=== PATIENT | female | born 1995 | race Two or more races ===

== ENCOUNTER 2022-10-11 19:47 | Emergency (ER) | payer OTHER, SELFPAY ==
--- NOTE | ~2022-10-11 | CT_ITS ---
EXAMINATION: CT ABDOMEN AND PELVIS WITHOUT CONTRAST CLINICAL INFORMATION: Abdominal pain with persistent vomiting COMPARISON: None available. TECHNIQUE: Multidetector volumetric imaging was performed from the superior aspect of the liver through the pubic symphysis. Sagittal and coronal reformatted images were obtained on the technologist's workstation. This CT examination was performed using dose optimization techniques as appropriate, variously including the following: *Automated exposure control *Adjustment of mA and/or kV according to patient size (this includes techniques or standardized protocols for targeted exams where dose is matched to indication/reason for exam; i.e. extremities or head) *Use of iterative reconstruction technique DLP: 799 mGy-cm FINDINGS: LUNG BASES: The visualized lung bases are unremarkable. LIVER, GALLBLADDER, AND BILIARY TREE: The liver is mildly enlarged at 18.3 cm. Shape and attenuation are normal. No focal hepatic lesion or biliary ductal dilatation is present. The gallbladder is unremarkable with no evidence of radiopaque gallstones, gallbladder wall thickening, or obvious pericholecystic inflammatory changes. PANCREAS: Unremarkable. SPLEEN: Unremarkable. ADRENAL GLANDS: Unremarkable. KIDNEYS AND URETERS: The kidneys are normal in size, shape, and attenuation. No hydronephrosis, hydroureter, or calculi seen. No perinephric stranding. BLADDER: Unremarkable. GASTROINTESTINAL TRACT: The small and large bowel are unremarkable aside from a few scattered colonic diverticula without diverticulitis. The appendix is unremarkable. ABDOMINAL WALL: No significant hernia is appreciated. LYMPH NODES: Normal. VASCULAR: Unremarkable. PELVIC VISCERA: The uterus and adnexa are unremarkable. At 2.4 cm benign cyst is present in the right ovary with a 1.2 cm cyst in the left ovary. No free fluid present in the pelvis. OSSEOUS STRUCTURES: Unremarkable. CT/CT abdomen pelvis wo IV con IMPRESSION: 1. A cause for the patient's abdominal pain and vomiting has not been found. 2. Incidental note made of mild hepatomegaly and bilateral benign ovarian cysts which need no additional follow-up. Fleischner guidelines were followed.
[2022-10-11 19:55] VITALS: BP 117/67; PULSE 63; RESP 16; TEMP 37.3; O2SAT 96; BMI 38.3
--- NOTE | 2022-10-11 19:57 | ED_ITS ---
HPI - General Adult General Chief complaint: Abdominal Pain Stated complaint: vomiting,body aches Time Seen by Provider: 10/11/22 20:44 Source: patient Mode of arrival: ambulatory Limitations: no limitations History of Present Illness HPI narrative: 27-year-old female came in for evaluation of abdominal pain, nausea, vomiting, nonbloody watery diarrhea for the past 7 days, patient was seen and evaluated in 2 different ER last week for similar symptoms with no relief of patient's symptoms, patient stated started as a food poisoning. Patient is concerned because the persistence of her symptoms. Decline any history of intra-abdominal surgery. Related Data Allergies Allergy/AdvReac Type Severity Reaction Status Date / Time No Known Allergies Allergy Verified 10/11/22 19:58 Review of Systems Review of Systems: All other systems are reviewed and are negative Constitutional: Reports as per HPI and Reports no additional constitutional complaints Eyes: Reports as per HPI and Reports no additional eye complaints Reports system reviewed and no additional complaints, except as documented Cardiovascular: Reports as per HPI and Reports no additional cardiovascular complaints Respiratory: Reports as per HPI and Reports no additional respiratory complaints Gastrointestinal: Reports as per HPI and Reports no additional gastrointestinal complaints Genitourinary: Reports no additional female genitourinary complaints Musculoskeletal: Reports no additional musculoskeletal complaints Skin/Breast: Reports system reviewed and no additional complaints, except as docu Psychiatric: Reports no additional psychiatric complaints Endocrine: Reports no additional endocrine complaints Hematologic/Lymphatic: Reports no additional hematologic/lymphatic complaints Allergic/Immunologic: Reports no additional allergic/immunologic complaints Reports system reviewed and no additional complaints, except as documented and Reports Abnormal speech present PENDING SALE TO [facility] Social History Social History Advance Directives: No Advance Directives Information Provided: No Physical Exam ED Vital Signs: Vital Signs - 24 hr 10/11/22 19:55 10/12/22 00:00 Temperature 99.1 F 98.1 F Pulse Rate 63 72 Respiratory Rate 16 16 Blood Pressure 117/67 120/67 Pulse Oximetry 96 98 Oxygen Delivery Method Room Air Room Air BMI result Body Mass Index 38.3 Vital signs have been reviewed as appeared to be correct. Blood pressure normal. Heart rate normal. Respiration rate normal. Temperature normal. Oxygen saturation normal. Appearance: Alert. Oriented X3. No acute distress. Head: Normal external exam. Normocephalic. Atraumatic. No Ibarra signs noted. No raccoon eyes noted Eyes: PERRLA. EOMI. Conjunctiva and sclera normal. Eyelids normal. ENT: TM's Normal. Pharynx normal. Uvula midline. Moist mucous membranes. No trismus noted. No drooling noted. No muffled voice noted. Neck: Normal inspection. Neck supple. FROM. No adenopathy. Thyroid Normal. No meningeal signs. No neck mass noted. CVS: Normal heart rate and rhythm. Heart sound normal. No murmurs noted. Pulses normal throughout. Respiratory: No respiratory distress. Painless inspiration. Breath sounds normal. No wheezes/rales/rhonchi noted. Chest nontender. No accessory muscle usage noted or decreased air movement noted. Abdomen: Soft, mild diffuse tenderness with no rebound tenderness or guarding. Bowel sounds normal in all 4 quadrants. No distention noted. No organomegaly noted. No visible injury noted. Back: No CVA tenderness. Full range of motion noted. Skin: Skin warm and dry. Normal skin color. Normal skin turgor. No rashes/lesions/lacerations noted. Extremities: No lower extremity edema. Extremities exhibit normal range of motion. Extremities nontender. Neuro: Oriented X 3. Cranial nerve exam: II-XII are grossly intact No motor deficit. No sensory deficit. Reflexes normal. Course Course Course Narrative: RME performed by Shikha Swift PA-C. Patient is a 27 year old assigned female at presenting to the emergency department with nausea, vomiting, and kidney pain. Patient states that this has been going on for 7 days and she has been seen at [facility] and [facility] BOTH for these symptoms. Labs, swabs ordered. Patient placed back in the waiting room pending room availability and results. Reevaluation(s) Reevaluation #1: 27-year-old female came in for few days of nausea, vomiting, diarrhea, and abdominal pain, patient had multiple ED visits this week for similar presentatio n, labs revealing mild hypokalemia, no obvious UTI. Patient is feeling better after IV hydration, now able to tolerate p.o. intake without vomiting. Time: 22:38 Medications Administered Discontinued Medications Generic Name Dose Route Start Last Admin Trade Name Freq PRN Reason Stop Dose Admin Al Hydroxide/Mg Hydroxide 30 ml 10/11/22 21:20 10/11/22 21:45 Magnesium Hydrox/Alum Hydrox 30 Ml Oral.Susp PO 10/11/22 21:21 30 ml ONCE ONE Administration Famotidine 20 mg 10/11/22 21:20 10/11/22 21:45 Famotidine/Pf 20 Mg/2 Ml Vial IVPUSH 10/11/22 21:21 20 mg ONCE ONE Administration Sodium Chloride 1,000 mls @ 999 mls/hr 10/11/22 21:20 10/11/22 23:49 Ns IV 10/11/22 22:20 Infused .Q1H1M ONE Infusion Sodium Chloride 1,000 mls @ 999 mls/hr 10/11/22 22:33 10/11/22 23:49 Ns IV 10/11/22 23:33 Infused .Q1H1M ONE Infusion Ketorolac Tromethamine 30 mg 10/11/22 22:33 10/11/22 22:44 Ketorolac Tromethamine 30 Mg/Ml Vial IVPUSH 10/11/22 22:34 30 mg ONCE ONE Administration Ondansetron HCl 4 mg 10/11/22 21:20 10/11/22 21:45 Ondansetron Hcl 4 Mg/2 Ml Vial IVPUSH 10/11/22 21:21 4 mg ONCE ONE Administration Potassium Chloride 40 meq 10/11/22 21:26 10/11/22 21:45 Potassium Chloride Packet 20 Meq Packet PO 10/11/22 21:27 40 meq ONCE ONE Administration Medical Decision Making Differential Diagnosis Differential Diagnoses: The differential diagnosis associated with the presentation includes (Appendicitis, colitis, diverticulitis, acute pyelonephritis, kidney stones, electrolytes abnormality, dehydration, severe ane amanda) Lab Data MDM Lab Attestation statement: I reviewed the patient's lab results. 10/11/22 20:17 10/11/22 20:17 Labs: Lab Results 10/11/22 10/11/22 10/11/22 Range/Units 20:17 20:17 20:17 WBC 10.4 (4.8-10.8) X10*3/uL RBC 4.75 (4.20-5.50) X10*6/uL Hgb 12.5 (12.0-16.0) g/dl Hct 37.2 (37.0-47.0) % MCV 78.3 L (80.0-98.0) fL MCH 26.3 L (27.0-33.0) pg MCHC 33.6 (31.0-35.0) g/dl RDW 13.2 (11.0-16.0) % Plt Count 369 (160-400) X10*3/uL MPV 8.9 L (9.4-12.3) fL Immature Gran % (Auto) 0.3 (0.0-0.4) % Neut % (Auto) 74.2 H (45-73) % Lymph % (Auto) 19.5 L (20-40) % Hendricks % (Auto) 5.7 (2-11) % Eos % (Auto) 0.1 (0-4) % Baso % (Auto) 0.2 (0-2) % Lymph # (Auto) 2.0 (1.2-4.9) X10*3/uL Hendricks # (Auto) 0.6 (0.1-1.2) X10*3/uL Eos # (Auto) 0.0 (0.0-0.4) X10*3/uL Baso # (Auto) 0.0 (0.0-0.2) X10*3/uL Abs Immat Gran (auto) 0.03 (0.00-0.03) X10*3/uL Absolute Neuts (auto) 7.8 (2.0-8.3) x10*3/uL Absolute Nucleated RBC 0.000 (0.0-0.012) X10*3/uL Nucleated RBC % (auto) 0.0 (0.0-0.2) /100WBC Sodium 142 (135-145) mmol/L Potassium 3.1 L (3.3-5.1) mmol/L Chloride 99 (96-108) mmol/L Carbon Dioxide 32 H (22-29) mmol/L Anion Gap 14 (12-20) BUN 6 L (9-16) mg/dL Creatinine 0.62 (0.5-1.4) mg/dL Estim Creat Clear Calc 163.4 Estimated GFR > 60 Random Glucose 101 (60-115) mg/dL Calcium 9.6 (8.4-10.2) mg/dL Magnesium 2.4 (1.6-2.6) mg/dL Total Bilirubin 1.0 (0.0-1.0) mg/dL AST 30 (5-31) U/L ALT 111 H (0-31) U/L Alkaline Phosphatase 68 (39-117) U/L Total Protein 7.4 (6.5-8.0) g/dL Albumin 4.3 (3.5-5.0) g/dL Lipase 31 (8-78) U/L Beta HCG, Quant < 2 mIU/mL Urine Color Urine Appearance Urine pH (5.0-9.0) Ur Specific [place] (1.005-1.025) Urine Protein (Neg-Trace) mg/dL Urine Glucose (UA) (Negative) mg/dL Urine Ketones (Negative) mg/dL Urine Blood (Negative) Urine Nitrite (Negative) Ur Leukocyte Esterase (Negative) Urine RBC (0-2) /HPF Urine WBC (0-5) /HPF Ur Squamous Epith Cells (0-2) /HPF Urine Bacteria (None Seen) Hyaline Casts (0-2) /LPF COVID-19 (SMITH) (Negative) COVID-19 Clin Com Influenza Type A (AKASH) Negative (Negative) Influenza Type B (AKASH) Negative (Negative) Influenza A & B Note See Note 10/11/22 10/11/22 Range/Units 20:17 20:17 WBC (4.8-10.8) X10*3/uL RBC (4.20-5.50) X10*6/uL Hgb (12.0-16.0) g/dl Hct (37.0-47.0) % MCV (80.0-98.0) fL MCH (27.0-33.0) pg MCHC (31.0-35.0) g/dl RDW (11.0-16.0) % Plt Count (160-400) X10*3/uL MPV (9.4-12.3) fL Immature Gran % (Auto) (0.0-0.4) % Neut % (Auto) (45-73) % Lymph % (Auto) (20-40) % Hendricks % (Auto) (2-11) % Eos % (Auto) (0-4) % Baso % (Auto) (0-2) % Lymph # (Auto) (1.2-4.9) X10*3/uL Hendricks # (Auto) (0.1-1.2) X10*3/uL Eos # (Auto) (0.0-0.4) X10*3/uL Baso # (Auto) (0.0-0.2) X10*3/uL Abs Immat Gran (auto) (0.00-0.03) X10*3/uL Absolute Neuts (auto) (2.0-8.3) x10*3/uL Absolute Nucleated RBC (0.0-0.012) X10*3/uL Nucleated RBC % (auto) (0.0-0.2) /100WBC Sodium (135-145) mmol/L Potassium (3.3-5.1) mmol/L Chloride (96-108) mmol/L Carbon Dioxide (22-29) mmol/L Anion Gap (12-20) BUN (9-16) mg/dL Creatinine (0.5-1.4) mg/dL Estim Creat Clear Calc Estimated GFR Random Glucose (60-115) mg/dL Calcium (8.4-10.2) mg/dL Magnesium (1.6-2.6) mg/dL Total Bilirubin (0.0-1.0) mg/dL AST (5-31) U/L ALT (0-31) U/L Alkaline Phosphatase (39-117) U/L Total Protein (6.5-8.0) g/dL Albumin (3.5-5.0) g/dL Lipase (8-78) U/L Beta HCG, Quant mIU/mL Urine Color Dark Yellow Urine Appearance Clear Urine pH 7.0 (5.0-9.0) Ur Specific [place] 1.025 (1.005-1.025) Urine Protein 30 (1+) H (Neg-Trace) mg/dL Urine Glucose (UA) Negative (Negative) mg/dL Urine Ketones 80 (Negative) mg/dL Urine Blood Negative (Negative) Urine Nitrite Negative (Negative) Ur Leukocyte Esterase Trace H (Negative) Urine RBC 3-5 H (0-2) /HPF Urine WBC 0-5 (0-5) /HPF Ur Squamous Epith Cells 3-5 (0-2) /HPF Urine Bacteria Trace (None Seen) Hyaline Casts 0-2 (0-2) /LPF COVID-19 (SMITH) Negative (Negative) COVID-19 Clin Com See Note Influenza Type A (AKASH) (Negative) Influenza Type B (AKASH) (Negative) Influenza A & B Note Independent Interpretation I performed an independent interpretation of an: CT Scan (Abdomen and pelvis: no acute intra-abdominal pathology) Discharge Plan Discharge Clinical Impression: Abdominal pain, Gastroenteritis Clinical Impression: (Ruled Out): Calculus of kidney Patient Disposition: Home, Self-Care Instructions: Gastroenteritis (ED), Acute Nausea and Vomiting (ED) Referrals: Physician,Unknown J [Primary Care Provider] -
[2022-10-11 20:23] LABS: MANUAL DIFF FLAG NO
[2022-10-11 20:27] LABS: Appearance Urine Clear; Basophils Percent Auto 0.2 % (0-2); Color Urine Dark Yellow; Eosinophils Percent Auto 0.1 % (0-4); Glucose Urine UA Negative (Negative); Hematocrit 37.2 % (37.0-47.0); Hemoglobin 12.5 g/dl (12.0-16.0); Imm Gran Abs Auto 0.03 X10*3/uL (0.00-0.03); Imm Gran Pct Auto 0.3 % (0.0-0.4); Leukocyte Esterase Urine Trace (Negative); Lymphocytes Percent Auto 19.5 % (20-40); Mean Corpuscular HGB Conc 33.6 g/dl (31.0-35.0); Mean Corpuscular Hemoglobin 26.3 pg (27.0-33.0); Mean Corpuscular Volume 78.3 fL (80.0-98.0); Mean Platelet Volume 8.9 fL (9.4-12.3); Monocytes Absolute Auto 0.6 X10*3/uL (0.1-1.2); Monocytes Percent Auto 5.7 % (2-11); Neutrophils Absolute Auto 7.8 x10*3/uL (2.0-8.3); Neutrophils Percent Auto 74.2 % (45-73); Nitrite Urine Negative (Negative); Platelet Count 369 X10*3/uL (160-400); Red Blood Count 4.75 X10*6/uL (4.20-5.50); Red Cell Distribution Width 13.2 % (11.0-16.0); Specific Gravity - Urine 1.025 (1.005-1.025); UMIC TRIGGER UACC YES; Urine Blood Negative (Negative); Urine Ketones 80 mg/dL (Negative); Urine Protein 30 (1+) mg/dL (Neg-Trace); White Blood Count 10.4 X10*3/uL (4.8-10.8)
[2022-10-11 20:32] LABS: Bacteria Urine Trace (None Seen); Hyaline Casts Urine 0-2 /LPF (0-2); WBC Urine 0-5 /HPF (0-5)
[2022-10-11 20:42] LABS: COVID-19 Test Negative (Negative); IDNOW Serial# 08D9AD1C; IDNOW Serial# BCCEAD1C; Influenza A Negative (Negative)
[2022-10-11 20:43] LABS: Influenza B2 Negative (Negative)
[2022-10-11 21:02] LABS: Alanine Aminotransferase 111 U/L (0-31); Albumin Level 4.3 g/dL (3.5-5.0); Alkaline Phosphatase 68 U/L (39-117); Anion Gap 14 (12-20); Aspartate Amino Transferase 30 U/L (5-31); Blood Urea Nitrogen 6 mg/dL (9-16); Calcium 9.6 mg/dL (8.4-10.2); Carbon Dioxide 32 mmol/L (22-29); Chloride 99 mmol/L (96-108); Creatinine Clr Calc Pharmacy 163.4; Estimated Glomerular Filt Rate > 60; Glucose Random 101 mg/dL (60-115); Lipase 31 U/L (8-78); Magnesium 2.4 mg/dL (1.6-2.6); Potassium 3.1 mmol/L (3.3-5.1); Sodium 142 mmol/L (135-145); Total Protein 7.4 g/dL (6.5-8.0)
[2022-10-11 21:16] LABS: HCG Quantitative < 2 mIU/mL
[2022-10-11] MEDS: ondansetron HCL 4 MG/2 ML VIAL IVPUSH (21:45)
[2022-10-11] MEDS: Famotidine/PF 20 MG/2 ML VIAL IVPUSH (21:45)
[2022-10-11] MEDS: 0.9 % Sodium Chloride 1,000 ML 999 ML IV ×2 (21:45→22:43)
[2022-10-11] MEDS: Potassium Chloride Packet 20 MEQ PACKET 40 MEQ PO (21:45)
[2022-10-11] MEDS: Magnesium Hydrox/Alum Hydrox 30 ML ORAL.SUSP PO (21:45)
--- NOTE | 2022-10-11 21:50 | PC.NURSE ---
20 g IV placed in the left forearm. IV is secured and patent with fluids running. Pt medicated per JUL.
[2022-10-11] MEDS: Ketorolac Tromethamine 30 MG/ML VIAL IVPUSH (22:44)
[2022-10-12] VITALS: BP 120/67; PULSE 72; RESP 16; TEMP 36.7; O2SAT 98
--- NOTE | 2022-10-12 00:41 | PC.NURSE ---
pt assessed at d/c, reported mild nausea and no pain
== END 2022-10-12 00:42 | disposition home or self-care (01) ==
PROVIDERS: Physician Assistant Medical; Emergency Provider Emergency Medicine
DX: R10.9 Unspecified abdominal pain (principal); K52.9 Noninfective gastroenteritis and colitis, unspecified; Z20.822 Contact with and (suspected) exposure to COVID-19; R11.2 Nausea with vomiting, unspecified
CPT/HCPCS: 74176; 80053; 81001; 83690; 83735; 84702; 85025; 87502; 87635; 96361; 96374; 96375; 99284; J1885; J2405

== ENCOUNTER 2022-12-26 07:30 | Emergency (ER) | payer OTHER, SELFPAY ==
--- NOTE | ~2022-12-26 | US_ITS ---
EXAMINATION: US ABDOMEN LIMITED CLINICAL INFORMATION: Epigastric and right upper quadrant pain. Nausea and vomiting.. COMPARISON: CT abdomen pelvis October 11, 2022 TECHNIQUE: Real-time imaging of the right upper quadrant abdominal viscera. FINDINGS: PANCREAS: Normal. LIVER: Normal. The liver is normal in size. The liver contour is normal. Parenchymal echogenicity is normal. No focal hepatic lesion. There is no intrahepatic biliary duct dilatation seen. GALLBLADDER: Normal. The gallbladder is physiologically distended without evidence of stones, sludge, polyps, wall thickening or pericholecystic fluid. Negative sonographic Dobbs's sign. COMMON BILE DUCT: Normal in caliber measuring 0.5 cm in diameter. RIGHT KIDNEY: Normal. No hydronephrosis. No renal calculi or focal parenchymal lesions. The kidney measures 11.7 cm in maximum dimension. FREE FLUID: None. US/US abdomen limited IMPRESSION: Unremarkable sonographic imaging of the right upper abdomen.
[2022-12-26 07:32] VITALS: BP 151/90; PULSE 70; RESP 16; TEMP 36.9; O2SAT 99; BMI 37.4
--- NOTE | 2022-12-26 07:42 | MHC.EDTECH ---
Pt unable to void at this time, urine cup given to patient. SG
[2022-12-26 07:48] LABS: MANUAL DIFF FLAG NO
[2022-12-26 07:49] LABS: Basophils Percent Auto 0.3 % (0-2); Eosinophils Percent Auto 0.2 % (0-4); Hematocrit 38.1 % (37.0-47.0); Imm Gran Abs Auto 0.03 X10*3/uL (0.00-0.03); Imm Gran Pct Auto 0.3 % (0.0-0.4); Lymphocytes Absolute Auto 1.9 X10*3/uL (1.2-4.9); Mean Corpuscular HGB Conc 34.1 g/dl (31.0-35.0); Mean Corpuscular Hemoglobin 27.2 pg (27.0-33.0); Mean Corpuscular Volume 79.7 fL (80.0-98.0); Mean Platelet Volume 8.8 fL (9.4-12.3); Monocytes Absolute Auto 0.5 X10*3/uL (0.1-1.2); Monocytes Percent Auto 4.3 % (2-11); Neutrophils Absolute Auto 8.6 x10*3/uL (2.0-8.3); Neutrophils Percent Auto 77.9 % (45-73); Platelet Count 386 X10*3/uL (160-400); Red Blood Count 4.78 X10*6/uL (4.20-5.50); Red Cell Distribution Width 13.2 % (11.0-16.0)
--- NOTE | 2022-12-26 08:06 | ED.GENADULT ---
HPI - General Adult General Chief complaint: Nausea/Vomiting/Diarrhea Stated complaint: Vomiting Time Seen by Provider: 12/26/22 08:05 Source: patient, RN notes reviewed and old records reviewed Mode of arrival: ambulatory Limitations: no limitations History of Present Illness HPI narrative: 27-year old female with no significant PMHx presenting to the ED today complaining of intermittent non-bloody vomiting, RUQ/epigastric abdominal pain and associated dark loose stools x1 week. States she's had PO intake secondary to N/V. Notes that her symptoms are temporarily relieved by taking showers. Admits to following with GI at [facility] for these symptoms, has not yet had an EGD. Admits to marijuana use however denies use since symptom onset. Denies fever, chills, flank pain, hematuria/ dysuria, constipation, recent travel or sick contacts. Denies chance of , LMP now. MD complaint: N/V, diarrhea Onset (ago): week(s) Related Data Previous Rx's Medication Instructions Recorded aluminum-mag hydroxide-simethicone 5 ml PO 5XD PRN dyspepsia #30 mL 12/26/22 200 mg-200 mg-20 mg/5 mL oral susp (Maalox Advanced) famotidine 20 mg tablet (Pepcid) 20 mg PO DAILY #14 tabs 12/26/22 ondansetron 4 mg disintegrating 4 mg PO Q8H PRN nausea and 12/26/22 tablet vomiting #10 tabs Allergies Allergy/AdvReac Type Severity Reaction Status Date / Time No Known Allergies Allergy Verified 12/26/22 07:32 Review of Systems Review of Systems: Constitutional: No Fever, No Chills ENT/Mouth: No Ear Pain, No Nasal Congestion Eyes: No Eye Pain, No Swelling Cardiovascular: No Chest Pain, No SOB, No Dyspnea on Exertion Respiratory: No Cough, No Sputum, No Wheezing, No Smoke Exposure, No Dyspnea Gastrointestinal: + Nausea, + Vomiting, + Diarrhea, No Constipation, + Abdominal pain, No Hematochezia, + Melena Genitourinary: No irregular bleeding, No Dysuria, No Urinary Frequency, No Hematuria, No Urinary Incontinence/retention, No Urgency, No Flank Pain Musculoskeletal: No joint pain, No Myalgias, No Joint Swelling Skin: No Skin Lesions, No rash Neuro: No Weakness, No Loss of Consciousness, No Dizziness, No Headache Yes all other systems are reviewed and are negative Constitutional: Constitutional: Reports as per [facility] Past Medical History Attestation statement: The following information was validated with the patient. Source: old records reviewed Social History Social History Advance Directives: No Advance Directives Information Provided: No Physical Exam ED Vital Signs: Vital Signs - 24 hr 12/26/22 07:32 12/26/22 10:15 Temperature 98.4 F 98.6 F Pulse Rate 70 67 Respiratory Rate 16 14 Blood Pressure 151/90 H 150/87 H Pulse Oximetry 99 100 Oxygen Delivery Method Room Air Room Air BMI result Body Mass Index 37.4 Const General: cooperative, healthy appearing, no acute distress, alert and awake Nutritional Appearance: obese Orientation/consciousness: patient oriented x3 Limitations: no limitations HENMT Head: Yes normal to inspection and Yes atraumatic Ears: hearing grossly normal bilaterally General nose exam: Normal external nose present Face and sinus: Yes normal facial exam Eyes General: appearance normal, both eyes and all related structures EOM: EOMs intact bilaterally Neck Neck: Yes normal visual inspection and Yes no meningeal signs Resp Effort & Inspection: normal respiratory effort and no respiratory distress Auscultation: clear to auscultation bilaterally Cardio Rate: regular rate Heart sounds: S1 normal heart sound present and S2 normal heart sound present GI Other: No obvious deformity, masses, or ecchymosis. No CVAT b/l. Inspection: Yes normal to inspection and Yes obesity Palpation (GI): Soft to palpation, Tenderness to palpation present (GI) in the epigastrum and in the RUQ; with no rebound tenderness, no guarding, not rigid, no hepatosplenomegaly, no pulsatile masses and No Rebound tenderness present Rectal Exam - Female: deferred General: Yes no CVA tenderness Back/Spine/Pelvis Back: no CVA tenderness Skin Rashes: no rashes Wounds: no wounds Neuro General: patient oriented x3, tone normal and no meningeal signs Gait exam (Neuro): Normal gait present Extrem General: Yes normal to inspection Course Course Course Narrative: -57--mild leukocytosis of 11.0. Potassium mildly low 3.1 > 60 mEq is repletion p.o. ordered -926--UDS positive for marijuana. UA with moderate amount of RBC/ blood likely secondary to patient's menstrual period, no infection. RUQ US showing physiologic dilation of GB without evidence of stones or sludge. US abdomen limited IMPRESSION: Unremarkable sonographic imaging of the right upper abdomen. -1044--UA with RBCs and trace leuk esterase, not infected -occult stool negative. Tox screen positive for THC -1140--patient tolerating p.o. in the ED. Recommended close GI follow-up Results discussed with patient including worrisome signs and symptoms and strict return precautions, and when to return to the emergency department. They verbalized understanding and feel safe for discharge at this time. ? Medications Administered Discontinued Medications Generic Name Dose Route Start Last Admin Trade Name Freq PRN Reason Stop Dose Admin Al Hydroxide/Mg Hydroxide 30 ml 12/26/22 08:24 12/26/22 08:55 Magnesium Hydrox/Alum Hydrox 30 Ml Oral.Susp PO 12/26/22 08:25 30 ml ONCE ONE Administration Famotidine 20 mg 12/26/22 08:24 12/26/22 08:55 Famotidine/Pf 20 Mg/2 Ml Vial IVPUSH 12/26/22 08:25 20 mg ONCE ONE Administration Sodium Chloride 1,000 mls @ 999 mls/hr 12/26/22 08:30 12/26/22 10:21 Ns IV 12/26/22 09:30 Infused .Q1H1M KEREN Infusion Sodium Chloride 1,000 mls @ 999 mls/hr 12/26/22 10:00 12/26/22 11:58 Ns IV 12/26/22 11:00 Infused .Q1H1M KEREN Infusion Lidocaine HCl 15 ml 12/26/22 10:44 12/26/22 11:43 Lidocaine Hcl Viscous 2 % 15 Ml Solution MUCOUS MEM 12/26/22 10:45 15 ml ONCE ONE Administration Potassium Chloride 60 meq 12/26/22 08:57 12/26/22 09:02 Potassium Chloride Er 20 Meq Tab.Er.Prt PO 12/26/22 08:58 60 meq ONCE ONE Administration Medical Decision Making Medical Decision Making MDM Narrative: 27-year old female with no significant PMHx presenting to the ED today complaining of intermittent non-bloody vomiting, abdominal pain and associated dark loose stools x1 week. Vital signs stable. Nontoxic appearing, NAD. Abdomen without deformity/ mass/ ecchymosis/ pulsation, TTP of epigastrium/RUQ without rebound or guarding. Concern for viral syndrome vs gastroenteritis vs gastritis vs PUD vs cholecystitis/lithiasis or pancreatitis vs cyclical vomiting vs electrolyte derangements. Lower suspicion for appendicitis, diverticulitis, UTI, renal stone/pyelo. Unlikely ACS, acute abdomen, ischemic bowel, SBO, IUP, ectopic Patient deferred rectal exam this time, will try to obtain stool for occult testing Plan: labs, UA, IVF, abdomen US, occult stool, GI cocktail, re-evaluate Please refer to course for remaining clinical decision making, interpretation of labs/imaging results, and discussions with consultants and/or family members. Differential Diagnosis Differential Diagnoses: The differential diagnosis associated with the presentation includes As above Admission/Observation Consideration of admission/observation: Escalation of care including admission/observation considered Lab Data MDM Lab Attestation statement: I reviewed the patient's lab results. 12/26/22 07:40 12/26/22 07:40 Labs: Lab Results 12/26/22 12/26/22 12/26/22 Range/Units 07:40 07:40 08:50 WBC 11.0 H (4.8-10.8) X10*3/uL RBC 4.78 (4.20-5.50) X10*6/uL Hgb 13.0 (12.0-16.0) g/dl Hct 38.1 (37.0-47.0) % MCV 79.7 L (80.0-98.0) fL MCH 27.2 (27.0-33.0) pg MCHC 34.1 (31.0-35.0) g/dl RDW 13.2 (11.0-16.0) % Plt Count 386 (160-400) X10*3/uL MPV 8.8 L (9.4-12.3) fL Immature Gran % (Auto) 0.3 (0.0-0.4) % Neut % (Auto) 77.9 H (45-73) % Lymph % (Auto) 17.0 L (20-40) % Shannon % (Auto) 4.3 (2-11) % Eos % (Auto) 0.2 (0-4) % Baso % (Auto) 0.3 (0-2) % Lymph # (Auto) 1.9 (1.2-4.9) X10*3/uL Shannon # (Auto) 0.5 (0.1-1.2) X10*3/uL Eos # (Auto) 0.0 (0.0-0.4) X10*3/uL Baso # (Auto) 0.0 (0.0-0.2) X10*3/uL Abs Immat Gran (auto) 0.03 (0.00-0.03) X10*3/uL Absolute Neuts (auto) 8.6 H (2.0-8.3) x10*3/uL Absolute Nucleated RBC 0.000 (0.0-0.012) X10*3/uL Nucleated RBC % (auto) 0.0 (0.0-0.2) /100WBC Sodium 140 (135-145) mmol/L Potassium 3.1 L (3.3-5.1) mmol/L Chloride 102 (96-108) mmol/L Carbon Dioxide 29 (22-29) mmol/L Anion Gap 12 (12-20) BUN 6 L (9-16) mg/dL Creatinine 0.71 (0.5-1.4) mg/dL Estim Creat Clear Calc 140.9 Estimated GFR > 60 Random Glucose 130 H (60-115) mg/dL Calcium 9.7 (8.4-10.2) mg/dL Magnesium 2.1 (1.6-2.6) mg/dL Total Bilirubin 0.8 (0.0-1.0) mg/dL AST 17 (5-31) U/L ALT 59 H (0-31) U/L Alkaline Phosphatase 68 (39-117) U/L Total Protein 7.8 (6.5-8.0) g/dL Albumin 4.3 (3.5-5.0) g/dL Lipase 14 (8-78) U/L Urine Color Urine Appearance Urine pH (5.0-9.0) Ur Specific Weir (1.005-1.025) Urine Protein (Neg-Trace) mg/dL Urine Glucose (UA) (Negative) mg/dL Urine Ketones (Negative) mg/dL Urine Blood (Negative) Urine Nitrite (Negative) Ur Leukocyte Esterase (Negative) Urine RBC (0-2) /HPF Urine WBC (0-5) /HPF Ur Squamous Epith Cells (0-2) /HPF Calcium Oxalate Crystal Urine Bacteria (None Seen) Hyaline Casts (0-2) /LPF Urine Test NEGATIVE (NEGATIVE) Stool Occult Blood (NEGATIVE) Urine Opiates Screen (Not Detect) Urine Fentanyl Screen (Not Detect) Ur Barbiturates Screen (Not Detect) Ur Phencyclidine Scrn (Not Detect) Ur Amphetamines Screen (Not Detect) U Benzodiazepines Scrn (Not Detect) Urine Cocaine Screen (Not Detect) U Marijuana (THC) Screen (Not Detect) 12/26/22 12/26/22 12/26/22 Range/Units 08:50 08:50 10:18 WBC (4.8-10.8) X10*3/uL RBC (4.20-5.50) X10*6/uL Hgb (12.0-16.0) g/dl Hct (37.0-47.0) % MCV (80.0-98.0) fL MCH (27.0-33.0) pg MCHC (31.0-35.0) g/dl RDW (11.0-16.0) % Plt Count (160-400) X10*3/uL MPV (9.4-12.3) fL Immature Gran % (Auto) (0.0-0.4) % Neut % (Auto) (45-73) % Lymph % (Auto) (20-40) % Shannon % (Auto) (2-11) % Eos % (Auto) (0-4) % Baso % (Auto) (0-2) % Lymph # (Auto) (1.2-4.9) X10*3/uL Shannon # (Auto) (0.1-1.2) X10*3/uL Eos # (Auto) (0.0-0.4) X10*3/uL Baso # (Auto) (0.0-0.2) X10*3/uL Abs Immat Gran (auto) (0.00-0.03) X10*3/uL Absolute Neuts (auto) (2.0-8.3) x10*3/uL Absolute Nucleated RBC (0.0-0.012) X10*3/uL Nucleated RBC % (auto) (0.0-0.2) /100WBC Sodium (135-145) mmol/L Potassium (3.3-5.1) mmol/L Chloride (96-108) mmol/L Carbon Dioxide (22-29) mmol/L Anion Gap (12-20) BUN (9-16) mg/dL Creatinine (0.5-1.4) mg/dL Estim Creat Clear Calc Estimated GFR Random Glucose (60-115) mg/dL Calcium (8.4-10.2) mg/dL Magnesium (1.6-2.6) mg/dL Total Bilirubin (0.0-1.0) mg/dL AST (5-31) U/L ALT (0-31) U/L Alkaline Phosphatase (39-117) U/L Total Protein (6.5-8.0) g/dL Albumin (3.5-5.0) g/dL Lipase (8-78) U/L Urine Color Dark Yellow Urine Appearance Cloudy Urine pH 6.5 (5.0-9.0) Ur Specific Weir 1.025 (1.005-1.025) Urine Protein 30 (1+) H (Neg-Trace) mg/dL Urine Glucose (UA) Negative (Negative) mg/dL Urine Ketones 40 (Negative) mg/dL Urine Blood Moderate (2+) H (Negative) Urine Nitrite Negative (Negative) Ur Leukocyte Esterase Trace H (Negative) Urine RBC 3-5 H (0-2) /HPF Urine WBC 0-5 (0-5) /HPF Ur Squamous Epith Cells 3-5 (0-2) /HPF Calcium Oxalate Crystal Present Urine Bacteria Trace (None Seen) Hyaline Casts 11-20 (0-2) /LPF Urine Test (NEGATIVE) Stool Occult Blood NEGATIVE (NEGATIVE) Urine Opiates Screen Not Detected (Not Detect) Urine Fentanyl Screen Not Detected (Not Detect) Ur Barbiturates Screen Not Detected (Not Detect) Ur Phencyclidine Scrn Not Detected (Not Detect) Ur Amphetamines Screen Not Detected (Not Detect) U Benzodiazepines Scrn Not Detected (Not Detect) Urine Cocaine Screen Not Detected (Not Detect) U Marijuana (THC) Screen POSITIVE H (Not Detect) Independent Interpretation I performed an independent interpretation of an: Ultrasound Interpretation: RUQ US showing physiologic dilation of GB without evidence of stones or sludge, agree with radiologist's interpretation. Radiology Impression Discussion of test interpretation with radiology: I have reviewed the radiologist's reading. Radiologist Impression: US abdomen limited IMPRESSION: Unremarkable sonographic imaging of the right upper abdomen. External Record Review External record reviewed: Inpatient record, Office record, Outpatient record, Prior outpatient labs, Prior outpatient radiology, Primary care record and Outside ED record Tests considered The following testing was considered but not selected: As above Prescription Management I considered prescription management with: Pain Medication Discharge Plan Discharge Clinical Impression: Abdominal pain, Nausea & vomiting Patient Disposition: Home, Self-Care Instructions: Acute Nausea and Vomiting (ED), Abdominal Pain (ED) Additional Instructions: Your blood work and ultrasound were reassuring You need to follow-up with gastroenterology Maalox and Pepcid will help with acid reduction Zofran as antinausea medication take as needed Avoid caffeine, spicy foods, sweets, chocolate as they may exacerbate her symptoms If symptoms persist or worsen return to the ED Prescriptions: New alum-mag hydroxide-simeth [Maalox Advanced] 200-200-20 mg/5 mL suspension 5 ml PO 5XD PRN (Reason: dyspepsia) Qty: 30 0RF Rx Instructions: administer between meals and at bedtime ondansetron 4 mg tablet,disintegrating 4 mg PO Q8H PRN (Reason: nausea and vomiting) Qty: 10 0RF famotidine [Pepcid] 20 mg tablet 20 mg PO DAILY Qty: 14 0RF Referrals: [facility] [Provider Group] - 5 days Discharge Date/Time: 12/26/22 11:50
[2022-12-26 08:10] LABS: Alanine Aminotransferase 59 U/L (0-31); Albumin Level 4.3 g/dL (3.5-5.0); Alkaline Phosphatase 68 U/L (39-117); Anion Gap 12 (12-20); Aspartate Amino Transferase 17 U/L (5-31); Bilirubin Total 0.8 mg/dL (0.0-1.0); Blood Urea Nitrogen 6 mg/dL (9-16); Calcium 9.7 mg/dL (8.4-10.2); Carbon Dioxide 29 mmol/L (22-29); Chloride 102 mmol/L (96-108); Creatinine Clr Calc Pharmacy 140.9; Estimated Glomerular Filt Rate > 60; Glucose Random 130 mg/dL (60-115); Lipase 14 U/L (8-78); Magnesium 2.1 mg/dL (1.6-2.6); Potassium 3.1 mmol/L (3.3-5.1); Sodium 140 mmol/L (135-145); Total Protein 7.8 g/dL (6.5-8.0)
[2022-12-26] MEDS: 0.9 % Sodium Chloride 1,000 ML 999 ML IV ×2 (08:55→10:19)
[2022-12-26] MEDS: Magnesium Hydrox/Alum Hydrox 30 ML ORAL.SUSP PO (08:55)
[2022-12-26] MEDS: Famotidine/PF 20 MG/2 ML VIAL IVPUSH (08:55)
[2022-12-26] MEDS: Potassium Chloride ER 20 MEQ TAB.ER.PRT 60 MEQ PO (09:02)
[2022-12-26 09:03] LABS: Appearance Urine Cloudy; Color Urine Dark Yellow; Glucose Urine UA Negative (Negative); Leukocyte Esterase Urine Trace (Negative); Nitrite Urine Negative (Negative); PH 6.5 (5.0-9.0); Specific Gravity - Urine 1.025 (1.005-1.025); UMIC TRIGGER UACC YES; UPreg QC Valid YES; Urine Blood Moderate (2+) (Negative); Urine Ketones 40 mg/dL (Negative); Urine Pregnancy NEGATIVE (NEGATIVE); Urine Protein 30 (1+) mg/dL (Neg-Trace)
[2022-12-26 09:16] LABS: Bacteria Urine Trace (None Seen); Calcium Oxalate Crystals Urine Present; WBC Urine 0-5 /HPF (0-5)
[2022-12-26 09:17] LABS: Amphetamine Screen Urine Not Detected (Not Detect); Barbiturates, Urine Not Detected (Not Detect); Benzodiazepines Screen Urine Not Detected (Not Detect); Cannabinoid Screen Urine POSITIVE (Not Detect); Cocaine Screen Urine Not Detected (Not Detect); Fentanyl, urine Not Detected (Not Detect); Opiate Screen Urine Not Detected (Not Detect); Phencyclidine Screen Urine Not Detected (Not Detect)
--- NOTE | 2022-12-26 10:01 | PC.NURSE ---
patient sleeping in stretcher, respirations equal and unlabored. patient IV fluids running, awaiting second bag.
[2022-12-26 10:15] VITALS: BP 150/87; PULSE 67; RESP 14; TEMP 37; O2SAT 100
--- NOTE | 2022-12-26 10:21 | PC.NURSE ---
eleonora given food and water/juice for PO challange
[2022-12-26 10:23] LABS: OBS Int Ctl Valid YES; OBS1 NEGATIVE (NEGATIVE)
[2022-12-26] MEDS: Lidocaine HCl Viscous 2 % 15 ML SOLUTION MUCOUS MEM (11:43)
== END 2022-12-26 11:50 | disposition home or self-care (01) ==
PROVIDERS: Physician Assistant; Emergency Provider Emergency Medicine Emergency Medical Services
DX: R10.11 Right upper quadrant pain (principal); R11.2 Nausea with vomiting, unspecified; F12.90 Cannabis use, unspecified, uncomplicated
CPT/HCPCS: 36415; 76705; 80053; 80307; 81001; 81003; 81025; 82272; 83690; 83735; 85025; 96361; 96374; 99284

== ENCOUNTER 2023-01-02 13:37 | Emergency (ER) | payer OTHER, SELFPAY ==
--- NOTE | ~2023-01-02 | XR_ITS ---
EXAMINATION: XR ABDOMEN KUB CLINICAL INFORMATION: Pain. COMPARISON: None available. TECHNIQUE: AP view of the abdomen. FINDINGS: The bowel gas pattern is normal with no evidence of ileus or obstruction. There is scattered retained stool. No unusual soft tissue calcifications are noted. The bones are unremarkable. XR/XR abdomen 1V IMPRESSION: Nonspecific bowel gas pattern. Scattered retained stool.
--- NOTE | ~2023-01-02 | CT_ITS ---
EXAMINATION: CT ABDOMEN AND PELVIS WITH CONTRAST CLINICAL INFORMATION: Abdominal pain. COMPARISON: 10/11/2022. TECHNIQUE: Multidetector volumetric images were obtained from the superior aspect of the liver through the pubic symphysis following administration 85 mL of Omnipaque 350 intravenous contrast. Sagittal and coronal reformatted images were obtained on the technologist's workstation. Oral contrast: No. This CT examination was performed using dose optimization techniques as appropriate, variously including the following: *Automated exposure control. *Adjustment of mA and/or kV according to patient size (this includes techniques or standardized protocols for targeted exams where dose is matched to indication/reason for exam; i.e. extremities or head). *Use of iterative reconstruction technique. DLP: 784 mGy-cm. FINDINGS: LUNG BASES: The visualized lung bases are unremarkable. LIVER, GALLBLADDER, AND BILIARY TREE: The liver is normal in size, shape, and attenuation. No focal hepatic lesion or biliary ductal dilatation is present. The gallbladder is unremarkable with no evidence of radiopaque gallstones, gallbladder wall thickening, or obvious pericholecystic inflammatory changes. PANCREAS: Unremarkable. SPLEEN: Unremarkable. ADRENAL GLANDS: Unremarkable. KIDNEYS AND URETERS: The kidneys are normal in size, shape, and attenuation. No hydronephrosis, hydroureter, or calculi seen. No perinephric stranding. BLADDER: Unremarkable. GASTROINTESTINAL TRACT: The small and large bowel are unremarkable. The appendix is unremarkable. ABDOMINAL WALL: No significant hernia is appreciated. LYMPH NODES: Normal. VASCULAR: Unremarkable. PELVIC VISCERA: There is a 3 cm low density intermediate density structure within the right adnexa. OSSEOUS STRUCTURES: Unremarkable. CT/CT abdomen pelvis w IV con IMPRESSION: 1. 3 cm cyst/hemorrhagic cyst right adnexa. 2. No other significant abnormality identified. Fleischner guidelines were followed.
--- NOTE | 2023-01-02 13:48 | ED_ITS ---
HPI - General Adult General Chief complaint: Abdominal Pain Stated complaint: vomiting Time Seen by Provider: 01/02/23 19:29 Source: patient Mode of arrival: ambulatory Limitations: no limitations History of Present Illness HPI narrative: 27-year-old female presents with abdominal pain. The pain is generalized. Is constant. Is aching crampy. There is no clear relieving or exacerbating features. She does note that every time she drinks liquids or solids, she has nausea vomiting. Been nonbilious nonbloody. She has had scant bowel movements. She has had nonbloody stool. She has had no fevers or chills. She has never had symptoms like this before. Patient feels generally weak and dehydrated as she has not been able tolerate liquids or solids. Patient denies a history of abdominal surgeries. Related Data Previous Rx's Medication Instructions Recorded aluminum-mag hydroxide-simethicone 5 ml PO 5XD PRN dyspepsia #30 mL 12/26/22 200 mg-200 mg-20 mg/5 mL oral susp (Maalox Advanced) famotidine 20 mg tablet (Pepcid) 20 mg PO DAILY #14 tabs 12/26/22 ondansetron 4 mg disintegrating 4 mg PO Q8H PRN nausea and 12/26/22 tablet vomiting #10 tabs dicyclomine 20 mg tablet 20 mg PO QID PRN abdominal pain 01/02/23 #14 tabs ondansetron 4 mg disintegrating 4 mg PO Q8H PRN nausea and 01/02/23 tablet vomiting #10 tabs pantoprazole 40 mg tablet,delayed 40 mg PO DAILY #14 tabs 01/02/23 release Allergies Allergy/AdvReac Type Severity Reaction Status Date / Time No Known Allergies Allergy Verified 01/02/23 13:49 Review of Systems 2 Review of Systems: CONSTITUTIONAL: Denies weight loss, fever and chills. HEENT: Denies changes in vision and hearing. RESPIRATORY: Denies SOB and cough. CV: Denies palpitations no CP. GI: + abdominal pain, nausea, vomiting - diarrhea. : Denies dysuria and urinary frequency. MSK: Denies myalgia and joint pain. SKIN: Denies rash and pruritus. NEUROLOGICAL: Denies headache and syncope. PSYCHIATRIC: Denies recent changes in mood. Denies anxiety and depression. All other ROS are negative unless in HPI PMFSH Social History Social History Alcohol intake: never Smoked in Last 30 Days: No Use of substances other than those prescribed or required for medical reasons: Yes Substance Use Type: Marijuana Substance Use Frequency: Occasionally Advance Directives: No Advance Directives Information Provided: No Patient : No Physical Exam ED Vital Signs: Vital Signs - 24 hr 01/02/23 13:50 01/02/23 19:34 01/02/23 22:00 Temperature 98 F 98.8 F 98.2 F Pulse Rate 78 68 55 Respiratory Rate 19 16 16 Blood Pressure 135/89 130/74 125/70 Pulse Oximetry 98 98 98 Oxygen Delivery Method Room Air Room Air Room Air BMI result Body Mass Index 37.0 GEN: Well developed, no acute distress, alert, oriented HEENT: Normocephalic, atraumatic, normal external ears, nose appears normal, no oropharyngeal edema or exudates, dry mucous members Eyes: Normal to appearance Neck: Supple, no lymphadenopathy Respiratory: Talks in complete sentences, no respiratory distress, clear to auscultation bilaterally Cardiovascular: Regular rate and rhythm, no murmurs rubs or gallops Abdomen: Soft, nontender, nondistended, no guarding, no rebound Back: No CVA tenderness Extremities: No clubbing cyanosis or edema Neurologic: No focal neurologic deficits, cranial nerves 2-12 intact, strength is 5/5 bilaterally Skin: No rash Course Course Course Narrative: RME performed by Shikha Swift PA-C. Patient is a 27 year old assigned female at presenting to the emergency department with nausea and vomiting. Labs and swabs ordered. Patient placed back in the waiting room pending room availability and results. Reevaluation(s) Reevaluation #1: Patient still has a significant amount of pain. This point I will order CT scan. Will provide patient with additional analgesia. Time: 21:41 Reevaluation #2: Patient is feeling better at this time. Will discharge patient on Bentyl, Zofran pantoprazole. Will recommend that she follow-up with her primary care provider within the next 3-[address] scan results including the hemorrhagic ovarian cyst. She will follow-up with her OBGYN. Time: 23:51 Medications Administered Discontinued Medications Generic Name Dose Route Start Last Admin Trade Name Freq PRN Reason Stop Dose Admin Famotidine 20 mg 01/02/23 19:42 01/02/23 20:27 Famotidine/Pf 20 Mg/2 Ml Vial IVPUSH 01/02/23 19:43 20 mg ONCE ONE Administration Sodium Chloride 1,000 mls @ 999 mls/hr 01/02/23 19:45 01/02/23 21:14 Ns IV 01/02/23 20:45 Infused .Q1H1M KEREN Infusion Sodium Chloride 1,000 mls @ 999 mls/hr 01/02/23 21:45 01/02/23 21:54 Ns IV 01/02/23 22:45 999 mls/hr .Q1H1M KREEN Administration Iohexol 100 ml 01/02/23 22:08 01/02/23 22:08 Iohexol 350 Mg/Ml 100 Ml Infus..Btl IV 01/02/23 22:09 85 ml ONCE ONE Administration Ketorolac Tromethamine 15 mg 01/02/23 19:42 01/02/23 20:27 Ketorolac Tromethamine 15 Mg/Ml Vial IVPUSH 01/02/23 19:43 15 mg ONCE ONE Administration Morphine Sulfate 4 mg 01/02/23 21:41 01/02/23 21:53 Morphine Sulfate 4 Mg/Ml Cartridge IVPUSH 01/02/23 21:42 4 mg ONCE ONE Administration Protocol Ondansetron HCl 4 mg 01/02/23 19:42 01/02/23 20:27 Ondansetron Hcl 4 Mg/2 Ml Vial IVPUSH 01/02/23 19:43 4 mg ONCE ONE Administration Medical Decision Making Medical Decision Making [facility] Narrative: 27-year-old female presents with generalized abdominal pain. Examination is slightly bloated, not significantly distended, generally tender but no rebound, no guarding, negative Dobbs sign, negative McBurney's point tenderness. Doubt acute abdomen. Will obtain an x-ray to rule out constipation, no history of surgeries so doubt small bowel obstruction. Obtain routine laboratory analysis to rule out acute hepatitis, anemia, renal dysfunction, other electrolyte abnormalities due to decreased p.o. intake. Will provide patient with analgesia, antiemetics and H2 peterson. Will re-evaluate patient. Differential diagnosis includes IBS, IBD, gastroenteritis, colitis, functional abdominal pain. At this point I see no indication for imaging at this time. Differential Diagnosis Differential Diagnoses: The differential diagnosis associated with the presentation includes (See above) Admission/Observation Consideration of admission/observation: Escalation of care including admission/observation considered Lab Data MDM Lab Attestation statement: I reviewed the patient's lab results. 01/02/23 14:10 01/02/23 14:10 Labs: Lab Results 01/02/23 01/02/23 01/02/23 Range/Units 14:10 14:10 14:10 WBC 9.2 (4.8-10.8) X10*3/uL RBC 4.60 (4.20-5.50) X10*6/uL Hgb 12.4 (12.0-16.0) g/dl Hct 36.5 L (37.0-47.0) % MCV 79.3 L (80.0-98.0) fL MCH 27.0 (27.0-33.0) pg MCHC 34.0 (31.0-35.0) g/dl RDW 13.2 (11.0-16.0) % Plt Count 367 (160-400) X10*3/uL MPV 9.4 (9.4-12.3) fL Immature Gran % (Auto) 0.4 (0.0-0.4) % Neut % (Auto) 77.7 H (45-73) % Lymph % (Auto) 17.2 L (20-40) % [place] % (Auto) 4.4 (2-11) % Eos % (Auto) 0.1 (0-4) % Baso % (Auto) 0.2 (0-2) % Lymph # (Auto) 1.6 (1.2-4.9) X10*3/uL [place] # (Auto) 0.4 (0.1-1.2) X10*3/uL Eos # (Auto) 0.0 (0.0-0.4) X10*3/uL Baso # (Auto) 0.0 (0.0-0.2) X10*3/uL Abs Immat Gran (auto) 0.04 H (0.00-0.03) X10*3/uL Absolute Neuts (auto) 7.1 (2.0-8.3) x10*3/uL Absolute Nucleated RBC 0.000 (0.0-0.012) X10*3/uL Nucleated RBC % (auto) 0.0 (0.0-0.2) /100WBC Sodium 140 (135-145) mmol/L Potassium 3.5 (3.3-5.1) mmol/L Chloride 105 (96-108) mmol/L Carbon Dioxide 25 (22-29) mmol/L Anion Gap 14 (12-20) BUN 4 L (9-16) mg/dL Creatinine 0.58 (0.5-1.4) mg/dL Estim Creat Clear Calc 171.5 Estimated GFR > 60 Random Glucose 117 H (60-115) mg/dL Calcium 9.2 (8.4-10.2) mg/dL Magnesium 2.0 (1.6-2.6) mg/dL Total Bilirubin 0.7 (0.0-1.0) mg/dL AST 13 (5-31) U/L ALT 18 (0-31) U/L Alkaline Phosphatase 55 (39-117) U/L Total Protein 7.3 (6.5-8.0) g/dL Albumin 4.2 (3.5-5.0) g/dL Beta HCG, Quant mIU/mL Urine Color Urine Appearance Urine pH (5.0-9.0) Ur Specific [place] (1.005-1.025) Urine Protein (Neg-Trace) mg/dL Urine Glucose (UA) (Negative) mg/dL Urine Ketones (Negative) mg/dL Urine Blood (Negative) Urine Nitrite (Negative) Ur Leukocyte Esterase (Negative) Urine Test (NEGATIVE) COVID-19 (SMITH) Negative (Negative) COVID-19 Clin Com See Note 01/02/23 01/02/23 01/02/23 Range/Units 14:10 19:43 19:43 WBC (4.8-10.8) X10*3/uL RBC (4.20-5.50) X10*6/uL Hgb (12.0-16.0) g/dl Hct (37.0-47.0) % MCV (80.0-98.0) fL MCH (27.0-33.0) pg MCHC (31.0-35.0) g/dl RDW (11.0-16.0) % Plt Count (160-400) X10*3/uL MPV (9.4-12.3) fL Immature Gran % (Auto) (0.0-0.4) % Neut % (Auto) (45-73) % Lymph % (Auto) (20-40) % [place] % (Auto) (2-11) % Eos % (Auto) (0-4) % Baso % (Auto) (0-2) % Lymph # (Auto) (1.2-4.9) X10*3/uL [place] # (Auto) (0.1-1.2) X10*3/uL Eos # (Auto) (0.0-0.4) X10*3/uL Baso # (Auto) (0.0-0.2) X10*3/uL Abs Immat Gran (auto) (0.00-0.03) X10*3/uL Absolute Neuts (auto) (2.0-8.3) x10*3/uL Absolute Nucleated RBC (0.0-0.012) X10*3/uL Nucleated RBC % (auto) (0.0-0.2) /100WBC Sodium (135-145) mmol/L Potassium (3.3-5.1) mmol/L Chloride (96-108) mmol/L Carbon Dioxide (22-29) mmol/L Anion Gap (12-20) BUN (9-16) mg/dL Creatinine (0.5-1.4) mg/dL Estim Creat Clear Calc Estimated GFR Random Glucose (60-115) mg/dL Calcium (8.4-10.2) mg/dL Magnesium (1.6-2.6) mg/dL Total Bilirubin (0.0-1.0) mg/dL AST (5-31) U/L ALT (0-31) U/L Alkaline Phosphatase (39-117) U/L Total Protein (6.5-8.0) g/dL Albumin (3.5-5.0) g/dL Beta HCG, Quant < 2 mIU/mL Urine Color Yellow Urine Appearance Turbid Urine pH 8.0 (5.0-9.0) Ur Specific [place] 1.020 (1.005-1.025) Urine Protein Trace (Neg-Trace) mg/dL Urine Glucose (UA) Negative (Negative) mg/dL Urine Ketones >=160 (Negative) mg/dL Urine Blood Negative (Negative) Urine Nitrite Negative (Negative) Ur Leukocyte Esterase Negative (Negative) Urine Test NEGATIVE (NEGATIVE) COVID-19 (SMITH) (Negative) COVID-19 Clin Com Independent Interpretation I performed an independent interpretation of an: Plain X-Ray (Abdomen: No obstruction, nonspecific bowel gas pattern) Radiology Impression Discussion of test interpretation with radiology: I have reviewed the radiologist's reading. Radiologist Impression: CT/CT abdomen pelvis w IV con IMPRESSION: 1. 3 cm cyst/hemorrhagic cyst right adnexa. ? 2. No other significant abnormality identified. ? Fleischner guidelines were followed. Dictated By: Julio C Raines Signed By: <Electronically signed by Dolores Raines in OV> 01/02/23 0450 I independently reviewed the imaging studies, agree with radiologist's findings Prescription Management I considered prescription management with: Pain Medication Discharge Plan Discharge Clinical Impression: Abdominal pain, Hemorrhagic cyst of right ovary Patient Disposition: Home, Self-Care Instructions: Ovarian Cyst (ED), Abdominal Pain (ED) Prescriptions: New ondansetron 4 mg tablet,disintegrating 4 mg PO Q8H PRN (Reason: nausea and vomiting) Qty: 10 0RF pantoprazole 40 mg tablet,delayed release (DR/EC) 40 mg PO DAILY Qty: 14 0RF dicyclomine 20 mg tablet 20 mg PO QID PRN (Reason: abdominal pain) Qty: 14 0RF No Action alum-mag hydroxide-simeth [Maalox Advanced] 200-200-20 mg/5 mL suspension 5 ml PO 5XD PRN (Reason: dyspepsia) Qty: 30 0RF Rx Instructions: administer between meals and at bedtime ondansetron 4 mg tablet,disintegrating 4 mg PO Q8H PRN (Reason: nausea and vomiting) Qty: 10 0RF famotidine [Pepcid] 20 mg tablet 20 mg PO DAILY Qty: 14 0RF Referrals: Physician,Unknown J [Primary Care Provider] - (Primary care provider within 1 week)
[2023-01-02 13:50] VITALS: BP 135/89; PULSE 78; RESP 19; TEMP 36.6; O2SAT 98; BMI 37.0
[2023-01-02 14:16] LABS: MANUAL DIFF FLAG NO
[2023-01-02 14:22] LABS: Basophils Percent Auto 0.2 % (0-2); Eosinophils Percent Auto 0.1 % (0-4); Hematocrit 36.5 % (37.0-47.0); Hemoglobin 12.4 g/dl (12.0-16.0); Imm Gran Abs Auto 0.04 X10*3/uL (0.00-0.03); Imm Gran Pct Auto 0.4 % (0.0-0.4); Lymphocytes Absolute Auto 1.6 X10*3/uL (1.2-4.9); Lymphocytes Percent Auto 17.2 % (20-40); Mean Corpuscular Volume 79.3 fL (80.0-98.0); Mean Platelet Volume 9.4 fL (9.4-12.3); Monocytes Absolute Auto 0.4 X10*3/uL (0.1-1.2); Monocytes Percent Auto 4.4 % (2-11); Neutrophils Absolute Auto 7.1 x10*3/uL (2.0-8.3); Neutrophils Percent Auto 77.7 % (45-73); Platelet Count 367 X10*3/uL (160-400); Red Cell Distribution Width 13.2 % (11.0-16.0); White Blood Count 9.2 X10*3/uL (4.8-10.8)
[2023-01-02 14:33] LABS: Alanine Aminotransferase 18 U/L (0-31); Albumin Level 4.2 g/dL (3.5-5.0); Alkaline Phosphatase 55 U/L (39-117); Anion Gap 14 (12-20); Aspartate Amino Transferase 13 U/L (5-31); Bilirubin Total 0.7 mg/dL (0.0-1.0); Blood Urea Nitrogen 4 mg/dL (9-16); Calcium 9.2 mg/dL (8.4-10.2); Carbon Dioxide 25 mmol/L (22-29); Chloride 105 mmol/L (96-108); Creatinine Clr Calc Pharmacy 171.5; Estimated Glomerular Filt Rate > 60; Glucose Random 117 mg/dL (60-115); Potassium 3.5 mmol/L (3.3-5.1); Sodium 140 mmol/L (135-145); Total Protein 7.3 g/dL (6.5-8.0)
[2023-01-02 14:40] LABS: HCG Quantitative < 2 mIU/mL
[2023-01-02 15:06] LABS: COVID-19 Test Negative (Negative); IDNOW Serial# 55D5AD1C
--- OUTSIDE RECORDS SUMMARY | 2023-01-02 18:17 | XMS_ITS | Continuity of Care Document ---
Author Name Unknown Organization [facility] Address [address] [place] [address]- Care Team Providers Care Batch Trucker Name Role Phone Kelsie DAVIS, Vern Washington Primary Care Physician Encounter [facility] [facility] Date(s): 12/03/21 - 01/02/[address] [address] Attending Physician: Mckenna Thomas Admitting Physician: AdmMckenna avalos Referring Physician: AdmtrMckenna Allergies, Adverse Reactions, Alerts No Known Allergies Immunizations Given and Recorded Vaccine Date Status Refusal Reason tetanus-diphtheria toxoids (Td) 06/24/18 Given influenza virus vaccine, inactivated 02/17/18 Give n influenza virus vaccine, inactivated 03/05/15 Give n hepatitis B adult vaccine 11/25/17 Given hepatitis B adult vaccine 05/20/17 Given tetanus/diphtheria/pertussis, acel(Tdap) 05/20/17 Given tetanus/diphtheria/pertussis, acel(Tdap) 05/21/06 Recorded Human Papillomavirus Vaccine 09/05/11 Recorded Human Papillomavirus Vaccine 11/01/09 Recorded Human Papillomavirus Vaccine 07/24/08 Recorded Measles/Mumps/Rubella Virus Vaccine 07/22/99 Recor ded Measles/Mumps/Rubella Virus Vaccine 09/28/96 Recor ded Medications Nexplanon 68 mg subcutaneous implant 1 each = 68 mg, Subcutaneous Infusion, Once, 0 Refills, Maintenance, 10/20/18 12:46:42 EDT Start Date: 10/20/18 Status: Ordered Problem List Condition Effective Dates Status Health Status Inform ant Anemia(Confirmed) Active Asthma(Confirmed) Active Depression(Confirmed) Active Marijuana use(Confirmed) Active Obesity NOS(Confirmed) Active ALEJANDRA (obstructive sleep apnea)(Confirmed) Active Well woman exam(Confirmed) Active Severe obesity(Confirmed) Active Social History Social History Type Response Smoking Status Never (less than 100 in lifetime) entered on: 10/08/21 Sex
--- OUTSIDE RECORDS SUMMARY | 2023-01-02 18:17 | XMS_ITS | Continuity of Care Document ---
Author Name Unknown Organization [facility] Address [address] [place] [address]- Care Team Providers Care Interactive Marketing Strategist Name Role Phone Kelsie DAVIS, Venr Washington Primary Care Physician Encounter [facility] Date(s): 03/27/20 - 04/26/[address] [address]- Attending Physician: Mckenna Thomas Admitting Physician: Mckenna Thomas Referring Physician: AdmtrMckenna Allergies, Adverse Reactions, Alerts Substance Reaction Severity Status NKA Active Immunizations Given and Recorded Vaccine Date Status [...] sleep apnea)(Confirmed) Active Well woman exam(Confirmed) Active Social History Social History Type Response Smoking Status Never smoker entered on: 11/25/17 Sex
--- OUTSIDE RECORDS SUMMARY | 2023-01-02 18:17 | XMS_ITS | Continuity of Care Document ---
Author Name Unknown Organization [facility] Address [address] [place] [id number]- Care Team Providers Care Nurse Consultant Name Role Phone Sneha Mendieta DO Primary Care Physician [place] [facility] - 12/24/19 [facility] [address] [address]- [facility] Attending Physician: Jennifer Puga MD Admitting Physician: Jennifer Puga MD Referring Physician: Jhoana DE SOUZA, BELT CHANGER, Rosi Melendez Allergies, Adverse Reactions, Alerts Substance Reaction Severity [...] Measles/Mumps/Rubella Virus Vaccine 09/28/96 Recor ded Medications chlorhexidine 4% topical soap 1 applicator, Topically, Once, # 237 mL, 1 Refills, Soft Stop, 01/14/19 17:48:07 EDT, 1 applicator Topically Once Start Date: 01/14/19 Status: Ordered clindamycin 1% topical solution 1 application, Topically, 2 times a day, apply a thin film to affected area after washing, # 30 mL,0 Refills, Maintenance, 01/14/19 17:47:09 EDT, Solution, 1 application Topically 2 times a day,Instr:apply a thin film to affected area after washing Start Date: 01/14/19 Status: Ordered Eucerin Plus Intensive Repair lotion 1 applicator, Topically, 2 times a day, # 100 mL, 1 Refills, Maintenance, 10/14/18 9:04:11 EDT, 1 applicator Topically 2 times a day Start Date: 10/14/18 Status: Ordered Nexplanon 68 mg subcutaneous implant 1 each = 68 mg, Subcutaneous Infusion, Once, 0 Refills, Maintenance, 10/20/18 12:46:42 EDT Start Date: 10/20/18 Status: Ordered ProAir HFA 90 mcg/inh inhalation aerosol with adapter 2 puffs, Inhalation, Every 4 hours, PRN for wheezing, # 2 each, 0 Refills, Maintenance, 03/06/15 15:06:47, Aerosol, 2 puffs Inhalation Every 4 hours,PRN:for wheezing Start Date: 03/06/15 Status: Ordered ZyrTEC 10 mg oral tablet 1 tablet = 10 mg, By Mouth, Daily, # 30 tablet, 0 Refills, Maintenance, 10/20/18 13:08:09 EDT, Tablet Start Date: 10/20/18 Status: Ordered Problem List Condition Effective Dates Status Health Status Inform ant Anemia(Confirmed) Active Asthma(Confirmed) Active Depression(Confirmed) Active Marijuana use(Confirmed) Active Obesity NOS(Confirmed) Active ALEJANDRA (obstructive sleep apnea)(Confirmed) Active Social History Social History Type Response Smoking Status Never smoker entered on: 11/25/17 Sex
--- OUTSIDE RECORDS SUMMARY | 2023-01-02 18:17 | XMS_ITS | Continuity of Care Document ---
Author Name Unknown Organization [facility] Address [address] [place] [address]- Care Team Providers Care Field Ring Assembler Name Role Phone Kelsie DAVIS, Vern Washington Primary Care Physician [place] [facility] Date(s): 02/28/22 - 03/30/[address] [address] Attending Physician: Mckenna Thomas Admitting Physician: AdmMckenna avalos Referring Physician: Admtr ArAndrés Allergies, Adverse Reactions, Alerts No Known Allergies [...] Measles/Mumps/Rubella Virus Vaccine 09/28/96 Recor ded Medications Apri 0.15 mg-0.03 mg oral tablet 1 tablet, By Mouth, Daily, # 28 tablet, 1 Refills, Maintenance, 02/28/22 12:04:00 EDT, Tablet, [id number], Partial fill upon patient request if the prescription is for a schedule II opioid drug., 1 tablet By Mouth Daily, 165, cm, 02/28/22 11:4... Start Date: 02/28/22 Status: Ordered Nexplanon 68 mg subcutaneous implant 1 each = 68 mg, Subcutaneous Infusion, Once, 0 Refills, Maintenance, 10/20/18 12:46:42 EDT Start Date: 10/20/18 Status: Ordered Paxlovid 150 mg-100 mg oral tablet See Instructions, 300mg nirmatrelvir (two 150mg tablets) with 100mg ritonavir (one tablet). All three tablets taken together twice daily for 5 days, with or without food, # 30 each, 0 Refills, Maintenance, 01/08/22 14:46:00 EDT, [facility]... Start Date: 01/08/22 Status: Ordered ProAir HFA 90 mcg/inh inhalation aerosol with adapter 1, puffs, Inhalation, Every 4 hours, PRN, # 8.5 Gm, Refills 0, Tot. Refills 0, Maintenance, 01/08/22 14:10:00 EDT, Aerosol, Route to Pharmacy Electronically, [id number], [id number], 165, cm, 01/08/22 13:31:00... Start Date: 01/08/22 Status: Ordered Problem List Condition Confirmation Course Effective Dates Status Health St atus Informant Anemia Confirmed Active Asthma Confirmed Active Depression Confirmed Active Marijuana use Confirmed Active Obesity NOS Confirmed Active ALEJANDRA (obstructive sleep apnea) Confirmed Active Well woman exam Confirmed Active Severe obesity Confirmed Active Social History Social History Type Response Smoking Status Never (less than 100 in lifetime) entered on: 10/08/21 Sex Patient Care team information Care Team Personnel Name: Kelsie DAVIS, Vern Washington Position: [facility] Primary Care Physician Member Role: PCP Address: Address: [address] [facility] [place] [address]- Care Team Related Persons Name: KLARISSA SALINAS Address: [id number] Address: home [address] [address] Name: USHA DE LA CRUZ Address: [place] [address] Name: CHANI SEXTON Address: home [address] [place] [address]
--- OUTSIDE RECORDS SUMMARY | 2023-01-02 18:17 | XMS_ITS | Continuity of Care Document ---
Author Name Unknown Organization [facility] Address [address] [place] [address]- Care Team Providers Care Aboriginal Community Council Member Name Role Phone Kelsie DAVIS, Vern Washington Primary Care Physician Encounter [facility] Date(s): 01/08/22 - 02/07/22 [facility] [address] [place] [address] Attending Physician: Mckenna Thomas Admitting Physician: AdmMckenna [...] each, 0 Refills, Maintenance, 01/08/22 14:46:00 EDT, [facility]... Start Date: 01/08/22 Status: Ordered ProAir HFA 90 mcg/inh inhalation aerosol with adapter 1, puffs, Inhalation, Every 4 hours, PRN, # 8.5 Gm, Refills 0, Tot. Refills 0, Maintenance, 01/08/22 14:10:00 EDT, Aerosol, Route to Pharmacy Electronically, [id number], [facility] #[id number], 165, cm, 01/08/22 13:31:00... Start Date: 01/08/22 Status: Ordered Problem List Condition Effective Dates Status Health Status Inform ant Anemia(Confirmed) Active Asthma(Confirmed) Active Depression(Confirmed) Active Marijuana use(Confirmed) Active Obesity NOS(Confirmed) Active ALEJANDRA (obstructive sleep apnea)(Confirmed) Active Well woman exam(Confirmed) Active Severe obesity(Confirmed) Active Social History Social History Type Response Smoking Status Never (less than 100 in lifetime) entered on: 10/08/21 Sex Care Team Personnel Name: Kelsie DAVIS, Vern Washington Address: [address] [place] [address]
--- OUTSIDE RECORDS SUMMARY | 2023-01-02 18:18 | XMS_ITS | Continuity of Care Document ---
Author Name Unknown Organization [facility] Address [address] [place] [address]- Care Team Providers Care Mud Mixer Operator Name Role Phone Kelsie DAVIS, Vern Washington Primary Care Physician Encounter [facility] Date(s): 03/21/22 - 04/20/22 [facility] [address] [place] [id number] Allergies, Adverse Reactions, Alerts No Known Allergies [...] 1 Refills, Maintenance, 02/28/22 12:04:00 EDT, Tablet, [id number], Partial fill upon patient request if the [...] each, 0 Refills, Maintenance, 01/08/22 14:46:00 EDT, [facility] #... Start Date: 01/08/22 Status: Ordered ProAir HFA 90 mcg/inh inhalation aerosol with adapter 1, puffs, Inhalation, Every 4 hours, PRN, # 8.5 Gm, Refills 0, Tot. Refills 0, Maintenance, 01/08/22 14:10:00 EDT, Aerosol, Route to Pharmacy Electronically, [id number], [facility] #[id number], 165, cm, 01/08/22 13:31:00... Start Date: 01/08/22 [...] Personnel Name: Kelsie DAVIS, Vern Washington Position: S Primary Care Physician Member Role: PCP Address: Address: [address] [facility] [place] [address]- Care Team Related Persons Name: KLARISSA SALINAS Address: [address] Address: home [address] [address] Name: USHA DE LA CRUZ Address: [place] [address] Name: CHANI SEXTON Address: home [address] [place] [address]
--- OUTSIDE RECORDS SUMMARY | 2023-01-02 18:18 | XMS_ITS | Continuity of Care Document ---
Author Name Unknown Organization [facility] Address [address] [place] [address]- Care Team Providers Care Classified Ad Taker Name Role Phone Sneha Mendieta DO Primary Care Physician Encounter [facility] Date(s): 07/04/19 - 07/04/[address] [address]- [facility] Attending Physician: Jhoana DE SOUZA, RAFAEL, Rosi Melendez Allergies, Adverse Reactions, Alerts Substance Reaction Severity Status NKA Active Immunizations Given and Recorded Vaccine Date Status Refusal Reason tetanus-diphtheria toxoids (Td) 06/24/18 Given influenza virus vaccine, inactivated 02/17/18 Give n influenza virus vaccine, inactivated 03/05/15 Give n hepatitis B adult vaccine 11/25/17 Given hepatitis B adult vaccine 05/20/17 Given tetanus/diphtheria/pertussis, acel(Tdap) 05/20/17 Given Medications chlorhexidine 4% topical soap 1 applicator, [...]
--- OUTSIDE RECORDS SUMMARY | 2023-01-02 18:18 | XMS_ITS | Continuity of Care Document ---
Author Name Unknown Organization [facility] Address [address] [place] [address]- Care Team Providers Care Trimmer Meat Name Role Phone Kelsie DAVIS, Vern Washington Primary Care Physician Encounter [facility] Date(s): 10/10/21 - 11/09/21 [facility] [address] [place], [place] [address] Allergies, Adverse Reactions, Alerts No [...]
--- OUTSIDE RECORDS SUMMARY | 2023-01-02 18:18 | XMS_ITS | Continuity of Care Document ---
Author Name Unknown Organization [facility] Address [address] [place] [address]- Care Team Providers Care Head Of Precision Targeting Name Role Phone Kelsie DAVIS, Vern Washington Primary Care Physician [place] [facility] 12/03/21 - 01/02/[address] [address]- Attending Physician: Damian Masterson MD Admitting Physician: Damian Masterson MD Referring Physician: John Roach Allergies, Adverse Reactions, Alerts No Known Allergies [...]
--- OUTSIDE RECORDS SUMMARY | 2023-01-02 18:18 | XMS_ITS | Continuity of Care Document ---
Author Name Unknown Organization [facility] Address [address] [place] [address]- Care Team Providers Care Sports Management Intern Name Role Phone Kelsie DAVIS, Vern Washington Primary Care Physician [facility] Date[facility]s): 05/28/20 - 06/27/20 [facility] [address] [place] [address]- Allergies, Adverse Reactions, Alerts Substance Reaction Severity [...]
--- OUTSIDE RECORDS SUMMARY | 2023-01-02 18:18 | XMS_ITS | Continuity of Care Document ---
Author Name Unknown Organization [facility] Address [address] [place] [address]- Care Team Providers Care Maxillofacial Prosthodontist Name Role Phone Kelsie DAVIS, Vern Washington Primary Care Physician [facility] Date(s): 10/30/22 - 11/29/22 [facility] [address] [place], [place] [address] Attending Physician: Mckenna Thomas Admitting Physician: AdmMckenna [...] Refills, Maintenance, 02/28/22 12:04:00 EDT, Tablet, [id number], Partial fill upon patient request if the [...] each, 0 Refills, Maintenance, 01/08/22 14:46:00 EDT, [facility]... Start Date: 01/08/22 Status: Ordered ProAir HFA 90 mcg/inh inhalation aerosol with adapter 1, puffs, Inhalation, Every 4 hours, PRN, # 8.5 Gm, Refills 0, Tot. Refills 0, Maintenance, 01/08/22 14:10:00 EDT, Aerosol, Route to Pharmacy Electronically, [id number], [facility][id number], 165, cm, 01/08/22 13:31:00... Start Date: 01/08/22 Status: Ordered Problem List Condition Confirmation Course Effective Dates Status Health St atus Informant Anemia Confirmed Active Asthma Confirmed Active Depression Confirmed Active Marijuana use Confirmed Active Obesity NOS Confirmed Active ALEJANDRA (obstructive sleep apnea) Confirmed Active Well woman exam Confirmed Active Severe obesity (BMI 35.0-39.9) with comorbidity Confirmed Active Social History Social History Type Response Smoking Status Never (less than 100 in lifetime) entered on: 10/08/21 Sex Patient Care team information Care Team Personnel Name: Kelsie DAVIS, Vern Washington Position: [facility] Physician - Primary Care Member Role: PCP Address: Address: [address] [facility] [place] [address]- Care Team Related Persons Name: KLARISSA SALINAS Address: Address: home [address] [address] Name: USHA DE LA CRUZ Address: [place] [address] Name: CHANI SEXTON Address: home [address] [place] [address]
--- OUTSIDE RECORDS SUMMARY | 2023-01-02 18:18 | XMS_ITS | Continuity of Care Document ---
Author Name Unknown Organization [facility] ter Address [address] [place] [address]- Care Team Providers Care Dance Critic Name Role Phone Kelsie DAVIS, Vern Washington Primary Care Physician [facility]counter [facility] Date(s): 10/15/22 - 10/15/[address] [address]- Discharge Disposition: A-D/C Home Attending Physician: Cinthya Schmid MD Admitting Physician: Cinthya Schmid MD Referring Physician: Not on Staff, Referring MD Allergies, Adverse Reactions, Alerts No Known Allergies [...] Refills, Maintenance, 02/28/22 12:04:00 EDT, Tablet, [id number], Partial fill upon patient request if the prescription is for a schedule II opioid drug., 1 tablet By Mouth Daily, 165, cm, 02/28/22 11:4... Start Date: 02/28/22 Status: Ordered Nexplanon 68 mg subcutaneous implant 1 each = 68 mg, Subcutaneous Infusion, Once, 0 Refills, Maintenance, 10/20/18 12:46:42 EDT Start Date: 10/20/18 Status: Ordered ondansetron 4 mg oral tablet, disintegrating 1 tablet = 4 mg, By Mouth, Every 8 hours, PRN as needed for nausea/vomiting, for 3 days, # 9 tablet, 0 Refills, Acute 10/18/22 11:09:00 EDT, 10/15/22 11:09:00 EDT, DIS Tablet, [facility] #[id number], Partial fill upon patient request if the presc... Start Date: 10/15/22 Stop Date: 10/18/22 Status: Ordered Paxlovid 150 mg-100 mg oral tablet See Instructions, 300mg nirmatrelvir (two 150mg tablets) with 100mg ritonavir (one tablet). All three tablets taken together twice daily for 5 days, with or without food, # 30 each, 0 Refills, Maintenance, 01/08/22 14:46:00 EDT, [facility]... Start Date: 01/08/22 Status: Ordered ProAir HFA 90 mcg/inh inhalation aerosol with adapter 1, puffs, Inhalation, Every 4 hours, PRN, # 8.5 Gm, Refills 0, Tot. Refills 0, Maintenance, 01/08/22 14:10:00 EDT, Aerosol, Route to Pharmacy Electronically, [id number], [facility] #[id number], 165, cm, 01/08/22 13:31:00... Start Date: 01/08/22 Status: Ordered Problem List Condition Confirmation Course Effective Dates Status Health St atus Informant Anemia Confirmed Active Asthma Confirmed Active Depression Confirmed Active Marijuana use Confirmed Active Obesity NOS Confirmed Active ALEJANDRA (obstructive sleep apnea) Confirmed Active Well woman exam Confirmed Active Severe obesity (BMI 35.0-39.9) with comorbidity Confirmed Active Vital Signs Most recent to oldest [Reference Range]: 1 2 3 Height 165 cm (10/15/22 11:16 AM) 165 cm (10/15/22 8:24 AM) 165 cm (10/15/22 8:22 AM) Weight 104.4 kg (10/15/22 11:16 AM) 104.4 kg (10/15/22:24 AM) 104.4 kg (10/15/22:22 AM) Oxygen Saturation [94-100 %] 97 % (10/15/22 11:16 AM) 99 % (10/15/22:22 AM) Pulse Rate [55-90 bpm] 76 bpm (10/15/22:16 AM) 68 bpm (10/15/22:22 AM) Body Mass Index [18.5-24.99 kg/m2] 38.35 kg/m2 *>HHI* (10/15/22:16 AM) 38.35 kg/m2 *>HHI* (10/15/22: AM) Blood Pressure [90-138/55-84 mm Hg] 139/75mm Hg *H* (10/15/22 11:16 AM) 145/90mm Hg *H* (10/15/22: AM) Respiratory Rate [16-30 br/min] 16 br/min (10/15/22 11:16 AM) 18 br/min (10/15/22 8:22 AM) Temperature [96.8-100.4 DegF] 97.5 DegF (10/15/22 11:16 AM) 97.5 DegF (10/15/22:22 AM) Mode of Delivery (Oxygen) Room air (10/15/22 11:16 AM) Room air (10/15/22:22 AM) Blood pressure sites Arm, right (10/15/22 11:16 AM) Arm, right (10/15/22:22 AM) Temperature Route Oral (10/15/22 11:16 AM) Oral (10/15/22 8:22 AM) Social History Social History Type Response Smoking Status Never (less than 100 in lifetime) entered on: 10/08/21 Sex Note * Haleigh Rocha: PERFORM Event Display: Patient Education Leaflets Authored Date: [id number] Multiple Documents ?? [id number] Epigastric Pain (Uncertain Cause) Epigastric pain is pain in the upper abdomen. It can be a sign of disease. Common causes include: ??? Acid reflux (stomach acid flowing up into the esophagus) ??? Gastritis (irritation of the stomach lining). Most often this is from aspirin or NSAIDs (nonsteroidal anti-inflammatory drugs) such asibuprofen, bacteria called H. pylori, or frequent alcohol use. ??? Peptic ulcer disease ??? Inflammation of the pancreas (pancreatitis) ??? Gallstone ??? Inflammation in the gallbladder (cholecystitis) Pain may be dull or burning. It may spread upward to the chest or to the back. There may be other symptoms such as belching, bloating, cramps, or hunger pains. There may be weight loss or poor appetite, nausea, or vomiting. Since the cause of your pain is not certain yet, you may need more tests. Sometimes your healthcareprovider will treat you for the most likely condition to see if there is improvement before doing more tests. Talk with your provider about what is best for you. Home care Medicines ??? Antacids help neutralize the normal acids in your stomach. If you don???t like the liquid, you can try a chewable one. You may find one works better than another for you. Overuse can cause diarrhea or constipation. Call your provider if you have questions about your medicines or concerns about side effects. ??? Acid blockers (H2 blockers) decrease acid production. Examples are cimetidine and famotidine. ??? Acid inhibitors (PPIs) decrease acid production in a different way than blockers. You may find they work better but can take a little longer to take effect. Examples are omeprazole, lansoprazole, pantoprazole, rabeprazole, and esomeprazole. Many of these are available [id number] or as generics. ??? Take an antacid 30 to 60??minutes after eating and at bedtime, but not at the same time as an acid peterson. ??? Try not to take NSAIDs such as ibuprofen. Aspirin may also cause problems, but if you are taking it for your heart or other medical reasons, talk to your healthcare provider before stopping it. Diet ??? If certain foods seem to cause your pain, try not to eat them. Certain foods can worsen symptoms of gastritis. Limit or avoid fatty, fried, and spicy foods, as well as coffee, chocolate, mint, and foods with high acid content such as tomatoes and citrus fruit and juices (orange, grapefruit, lemon). ??? Eat slowly and chew food well before swallowing. ??? Don't drink alcohol. It can irritate the stomach. If you have trouble giving up alcohol, ask your provider for treatment resources. ??? Don't consume caffeine or use tobacco. These can delay healing??and worsen your problem. ??? Try eating smaller meals with snacks in between. Don't eat large meals before bedtime. ??? Keep an emptystomach for 2 to 3 hours before lying down. ??? Prop the head of the bed up if you have overnight symptoms. This helps acid clear from your esophagus. ?? Follow-up care Follow up with your healthcare provider or as advised. ?? When to seek medical advice Call your healthcare provider right away if any of the following occur: ??? Stomach pain worsens ormoves to the right lower part of the abdomen ??? Frequent vomiting (can???t keep down liquids) ??? Blood in the stool or vomit (red or black color) ??? Fever of 100.4??F (38??C) or higher, or as directed by your healthcare provider ??? Abdominal swelling ??? Worsening symptoms or new symptoms ?? Call 911 Call 911 if any of these occur: ??? Chest pain appears, or if pain worsens or spreads to the back, neck, shoulder, or arm ??? Feeling weak or dizzy, fainting, or having trouble breathing ?? Last Reviewed Date: 2022 ?? [id number] [employer]. All rights reserved. This information is not intended as a substitute for professional medical care. Always follow your healthcare professional's instructions. ?? * Johnnie NOVAK, Haleigh Melendez: PERFORM Event Display: Patient Education Leaflets Authored Date: [id number] Multiple Documents ?? [id number] Vomiting (Adult) Vomiting is a common symptom that may be due to different causes. These include gastroenteritis (stomach flu), food poisoning, and gastritis. Other more serious causes of vomiting may be hard to diagnose early in the illness. That's why it's important to watch for the warning signs listed below. The main danger from repeated vomiting is dehydration. This is because of the loss of water and minerals from the body. When this occurs, your body fluids must be replaced. Home care ??? If symptoms are severe, rest at home for the next 24 hours. ??? Because your symptoms may be from an infection, wash your hands often and well. Use soap and clean, running water or alcohol-based home health care case manager to keep from spreading the infection to others. ??? Wash your hands for at least 20 seconds. Scrub all surfaces of your hands, including between your fingers and under your fingernails each time you wash. Humming the Happy Birthday song twice while you wash is an easy way to make sure you've washed for 20 seconds. ??? Wash your hands after using the toilet, before and after preparing food, before eating food, after changing a diaper, cleaning a wound, caring for a sick person, and blowing your nose, coughing, or sneezing. You should also wash your hands after caring for someone who is sick, touching pet food, or treats, and touching an animal, or animal waste. ??? You may use acetaminophen??or NSAID medicines such as ibuprofen or naproxen to control fever, unless another medicinewas prescribed. Talk with your provider before using these medicines if you have chronic liver or kidney disease or ever had a stomach ulcer or digestive bleeding. Never give aspirin to anyone younger than 18 who is ill with a fever. It may cause severe liver damage. Don't use NSAID medicines if you are already taking one for another condition such as arthritis or take aspirin for heart disease or after a stroke. ??? Don't use tobacco or drink alcohol. These may make your symptoms worse. If youhave trouble stopping either substance, ask your provider for treatment resources. ??? If medicinesfor vomiting were prescribed, take as directed. Tell your provider if they don't work within the expected time period. ??? Once vomiting stops, then follow these guidelines: During the first 12 to 24 hours, follow the diet below: ??? Fruit juices. Apple, grape juice, clear fruit drinks, and electrolyte replacement drinks. ??? Beverages. Water, soft drinks without caffeine; mineral water (plain or flavored), and decaffeinated tea and coffee. ??? Soups. Clear broth and bouillon. ??? Desserts. Plain gelatin, ice pops, and fruit juice bars. As you feel better, you may add 6 to 8 ounces of yogurt per day. During the next 24 hours you may add the following to the above: ??? Hot cereal, plain toast, bread, rolls, and crackers ??? Plain noodles, rice, mashed potatoes, and chicken noodle or rice soup ??? Unsweetened canned fruit such as applesauce, bananas. Don't have pineapple or citrus. ??? Limit caffeine and chocolate. No spices or seasonings except salt. During the next 24 hours: Gradually go back to your normal diet, as you feel better and your symptoms lessen. ?? Follow-up care Follow up with your healthcare provider as advised. ?? When to seek medical advice Call your healthcare provider right away if any of these occur: ??? Constant right-sided lower belly pain or increasing general belly pain ??? Continued vomiting (unable to keep liquids down) for 24 hours ??? Vomiting blood or what looks like coffee grounds ??? Swollen belly ??? Frequent diarrhea (more than 5 times a day), or blood (red or black color) or mucus in diarrhea ??? Peeing less than usual or extreme thirst ??? Weakness, dizziness, or fainting ??? Unusually drowsy or confused ??? Fever of 100.4??F (38??C) oral or higher, or as directed by your provider ??? Yellow color of the eyes or skin ??? Other symptoms get worse or you have new symptoms ?? Last Reviewed Date: 2021 ?? [id number] [employer]. All rights reserved. This information is not intended as a substitute for professional medical care. Always follow your healthcare professional's instructions. ?? Patient Care team information Care Team Personnel Name: Kelsie DAVIS, Vern Washington Position: [facility] Physician - Primary Care Member Role: PCP Address: Address: [address] [facility] [place] [address]- Name: Haleigh Rocha Position: [facility] Associate Professional Member Role: ED Physician Senior Qa Analyst Address: Address: [address] [facility] Emergency Medicine [place], [place] [address] Name: Tracy Kline RN Position: [facility] ED RN W/OE and Tasks Member Role: Patient Care Provider Name: Cinthya Schmid MD Position: [facility] Resident Member Role: Admitting Physician Address: Address: [address] [place] [address] [place] [address]- Name: Kaley Grant Position: [facility] ED TA [facility] Member Role: Patient Care Provider Care Team Related Persons Name: KLARISSA SALINAS Address: [address] Address: home [address] [address] [place] Name: USHA DE LA CRUZ Address: [place] [address] Name: CHANI SEXTON Address: home [address] [place] [address]
--- OUTSIDE RECORDS SUMMARY | 2023-01-02 18:18 | XMS_ITS | Continuity of Care Document ---
Author Name Unknown Organization [facility] Address [address] [place] [address]- Care Team Providers Care Coat Joiner Name Role Phone Kelsie DAVIS, Vern Washington Primary Care Physician [facility]s): 10/08/21 - 11/07/21 [facility] [address] [place] [address]- Attending Physician: Mckenna Thomas Admitting Physician: Mckenna [...]
--- OUTSIDE RECORDS SUMMARY | 2023-01-02 18:18 | XMS_ITS | Continuity of Care Document ---
Author Name Unknown Organization [facility] Address [address] [place] [address]- Care Team Providers Care Lace Inspector Name Role Phone Kelsie DAVIS, Vern Washington Primary Care Physician [facility] Date(s): 11/02/20 - 12/27/20 [facility] [address] [place] [address]- Attending Physician: Astrid Casanova MD Admitting Physician: Astrid Casanova MD Allergies, Adverse Reactions, Alerts Substance Reaction Severity [...]
--- OUTSIDE RECORDS SUMMARY | 2023-01-02 18:18 | XMS_ITS | Continuity of Care Document ---
Author Name Unknown Organization [facility] Address [address] [place] [address]- Care Team Providers Care Kiln Firer Name Role Phone Kelsie DAVIS, Vern Washington Primary Care Physician Encounter [facility] Date(s): 10/22/21 - 11/21/[address] [address] Allergies, Adverse Reactions, Alerts No Known [...]
--- OUTSIDE RECORDS SUMMARY | 2023-01-02 18:18 | XMS_ITS | Continuity of Care Document ---
Author Name Unknown Organization [facility] Address [address] [place] [address]- Care Team Providers Care Natural Resources Extension Educator Name Role Phone Kelsie DAVIS, Vern Washington Primary Care Physician [facility] Date[facility]s): 11/27/20 - 12/27/20 [facility] [address] [place], [place] [address] Attending Physician: AdmMckenna avalos Admitting Physician: AdmtrMckenna Referring Physician: Admtr Ar8 Allergies, Adverse Reactions, Alerts Substance Reaction Severity [...]
--- OUTSIDE RECORDS SUMMARY | 2023-01-02 18:18 | XMS_ITS | Continuity of Care Document ---
Author Name Unknown Organization [facility] Address [address] [place] [address]- Care Team Providers Care Road Supervisor Name Role Phone Sneha Mendieta DO Primary Care Physician Encounter [facility] Date(s): 11/17/19 - 12/24/19 [facility] [address] [address]- [facility] Attending Physician: Not on Staff, Attending MD Allergies, Adverse Reactions, Alerts Substance Reaction [...]
--- OUTSIDE RECORDS SUMMARY | 2023-01-02 18:18 | XMS_ITS | Continuity of Care Document ---
Author Name Unknown Organization [facility] ter Address [address] [place] [address] Care Team Providers Care Skinner Pelts Name Role Phone Kelsie DAVIS, Vern Washington Primary Care Physician [facility] Date(s): 04/04/22 - 04/04/[address] [address]- Discharge Disposition: A-D/C Walkout Attending Physician: Not on Staff, Attending MD Admitting Physician: Not on Staff, Admitting MD Referring Physician: Not on Staff, Referring [...] Refills, Maintenance, 02/28/22 12:04:00 EDT, Tablet, [id number], Partial fill upon patient request if the [...] each, 0 Refills, Maintenance, 01/08/22 14:46:00 EDT, [email or web address] #... Start Date: 01/08/22 Status: Ordered ProAir HFA 90 mcg/inh inhalation aerosol with adapter 1, puffs, Inhalation, Every 4 hours, PRN, # 8.5 Gm, Refills 0, Tot. Refills 0, Maintenance, 01/08/22 14:10:00 EDT, Aerosol, Route to Pharmacy Electronically, [id number], [facility] #[id number], 165, cm, 01/08/22 13:31:00... Start Date: 01/08/22 Status: Ordered Problem List Condition Confirmation Course Effective Dates Status Health St atus Informant Anemia Confirmed Active Asthma Confirmed Active Depression Confirmed Active Marijuana use Confirmed Active Obesity NOS Confirmed Active ALEJANDRA (obstructive sleep apnea) Confirmed Active Well woman exam Confirmed Active Severe obesity Confirmed Active Vital Signs Most recent to oldest [Reference Range]: 1 2 3 Oxygen Saturation [94-100 %] 100 % (04/04/22 5:52 PM) 100 % (04/04/22 4:04 PM) 99 % (04/04/22 1:45 PM) Pulse Rate [55-90 bpm] 65 bpm (04/04/22 5:52 PM) 59 bpm (04/04/22 4:04 PM) 59 bpm (04/04/22 1:45 PM) Blood Pressure [90-138/55-84 mm Hg] 138/86mm Hg (04/04/22 5:52 PM) 141/82mm Hg *H* (04/04/22 4:04 PM) 137/71mm Hg (04/04/22 1:45 PM) Respiratory Rate [16-30 br/min] 18 br/min (04/04/22 5:52 PM) 18 br/min (04/04/22 4:04 PM) 22 br/min (04/04/22 1:45 PM) Temperature [96.8-100.4 DegF] 99.4 DegF (04/04/22 5:52 PM) 99.5 DegF (04/04/22 4:04 PM) 99.1 DegF (04/04/22 1:45 PM) Liters per Minute 0 L/min (04/04/22 1:45 PM) Mode of Delivery (Oxygen) Room air (04/04/22 5:52 PM) Room air (04/04/22 4:04 PM) Room air (04/04/22 1:45 PM) Blood pressure sites Arm, right (04/04/22 5:52 PM) Arm, right (04/04/22 4:04 PM) Arm, left (04/04/22 1:45 PM) Temperature Route Oral (04/04/22 5:52 PM) Oral (04/04/22 4:04 PM) Oral (04/04/22 1:45 PM) Social History Social History Type Response Smoking Status Never (less than 100 in lifetime) entered on: 10/08/21 Sex Patient Care team information Care Team Personnel Name: eKlsie DAVIS, Vern Washington Position: [facility] Primary Care Physician Member Role: PCP Address: Address: [address] [facility] [place] [address]- Care Team Related Persons Name: KLARISSA SALINAS Address: [id number] Address: home [address] [address] [place] Name: USHA DE LA CRUZ Address: [place] [address] Name: CHANI SEXTON Address: home [address] [place] [address]
--- OUTSIDE RECORDS SUMMARY | 2023-01-02 18:18 | XMS_ITS | Continuity of Care Document ---
Author Name Unknown Organization [facility] Address [address] [place] [address]- Care Team Providers Care Flexo Folder Gluer Operator Name Role Phone Kelsie DAVIS, Vern Washington Primary Care Physician [facility]counter [facility] Date(s): 01/07/21 - 02/06/[address] [address] Allergies, Adverse Reactions, Alerts Substance Reaction Severity [...]
--- OUTSIDE RECORDS SUMMARY | 2023-01-02 18:18 | XMS_ITS | Continuity of Care Document ---
Author Name Unknown Organization [facility] Address [address] [place] [address]- Care Team Providers Care Office Cashier Name Role Phone Kelsie DAVIS, Vern Washington Primary Care Physician Encounter [facility] Date(s): 04/17/21 - 05/17/[address] [address] Attending Physician: Mckenna Thomas Admitting Physician: Mckenna [...]
--- OUTSIDE RECORDS SUMMARY | 2023-01-02 18:18 | XMS_ITS | Continuity of Care Document ---
Author Name Unknown Organization [facility] Address [address] [place] [address]- Care Team Providers Care Toy Consultant Name Role Phone Kelsie DAVIS, Vern Washington Primary Care Physician Encounter [facility] Date(s): 01/11/21 - 02/10/[address] [address]- Attending Physician: Mckenna Thomas Admitting Physician: Mckenna [...]
--- OUTSIDE RECORDS SUMMARY | 2023-01-02 18:18 | XMS_ITS | Continuity of Care Document ---
Author Name Unknown Organization [facility] Adult Medicine Address [address] [place] [address]- Care Team Providers Care Re Dye Hand Name Role Phone Kelsie DAVIS, Vern Washington Primary Care Physician [facility] Date[facility]s): 01/08/22 - 02/07/22 [facility] Adult [facility] [address] [place] [id number] Allergies, Adverse Reactions, Alerts No Known Allergies [...] each, 0 Refills, Maintenance, 01/08/22 14:46:00 EDT, [facility] #... Start Date: 01/08/22 Status: Ordered ProAir HFA 90 mcg/inh inhalation aerosol with adapter 1, puffs, Inhalation, Every 4 hours, PRN, # 8.5 Gm, Refills 0, Tot. Refills 0, Maintenance, 01/08/22 14:10:00 EDT, Aerosol, Route to Pharmacy Electronically, [id number], [facility] #[id number], 165, cm, 01/08/22 13:31:00... Start Date: 01/08/22 [...] Personnel Name: Kelsie DAVIS, Vern Washington Address: [address] [place] [address] [place], [place] [address]
--- OUTSIDE RECORDS SUMMARY | 2023-01-02 18:18 | XMS_ITS | Continuity of Care Document ---
Author Name Unknown Organization [facility] Address [address] [facility], [address] [place] [address]- Care Team Providers Care Senior Manufacturing Engineer Name Role Phone Kelsie DAVIS, Vern Washington Primary Care Physician Encounter [facility] Date(s): 03/29/20 - 04/28/20 [facility] [address] [facility], [address]th [place] [address]- Allergies, Adverse Reactions, Alerts Substance Reaction Severity [...]
--- OUTSIDE RECORDS SUMMARY | 2023-01-02 18:18 | XMS_ITS | Continuity of Care Document ---
Author Name Unknown Organization [facility] Adult Medicine Address [address] [place] [address]- Care Team Providers Care Civil Division Deputy Sheriff Name Role Phone Sneha Mendieta DO Primary Care Physician [facility] Date[facility]s): 07/12/19 - 07/22/19 [facility] Adult [facility] [address] [place] [address]- [facility] Attending Physician: Mckenna Thomas Admitting Physician: Mckenna [...]
--- OUTSIDE RECORDS SUMMARY | 2023-01-02 18:18 | XMS_ITS | Continuity of Care Document ---
Author Name Unknown Organization [facility] Adult Medicine Address [address] [place] [address]- Care Team Providers Care Slat Basket Top Maker Name Role Phone Kelsie DAVIS, Vern Washington Primary Care Physician [facility]counter [facility] Date(s): 09/10/22 - 10/10/22 [facility] Adult Medicine [address] [place] [id number] Allergies, Adverse Reactions, Alerts No Known [...] Refills, Maintenance, 02/28/22 12:04:00 EDT, Tablet, [id number], Partial fill upon patient request if the [...] each, 0 Refills, Maintenance, 01/08/22 14:46:00 EDT, [facility] #... Start Date: 01/08/22 Status: Ordered ProAir HFA 90 mcg/inh inhalation aerosol with adapter 1, puffs, Inhalation, Every 4 hours, PRN, # 8.5 Gm, Refills 0, Tot. Refills 0, Maintenance, 01/08/22 14:10:00 EDT, Aerosol, Route to Pharmacy Electronically, [id number], [facility] #[id number], 165, cm, 01/08/22 13:31:00... Start Date: 01/08/22 [...] Name: Kelsie DAVIS, Vern Washington Position: S Physician - Primary Care Member Role: PCP Address: Address: [address] [place] [address]- Care Team Related Persons Name: KLARISSA SALINAS Address: [address] Address: home [address] [address] Name: USHA DE LA CRUZ Address: [place] [address] Name: CHANI SEXTON Address: home [address] [place] [address]
--- OUTSIDE RECORDS SUMMARY | 2023-01-02 18:18 | XMS_ITS | Continuity of Care Document ---
Author Name Unknown Organization [facility] Adult Medicine Address [address] [place] [address]- Care Team Providers Care Communications Department Head Name Role Phone Vern Iglesias MD Primary Care Physician [facility]counter [facility] Date(s): 10/16/22 - 11/29/22 [facility] Adult [facility] [address] [place], [place] [address] Attending Physician: Vern Iglesias MD Admitting Physician: Vern Iglesias MD Allergies, Adverse Reactions, Alerts No Known [...] Refills, Maintenance, 02/28/22 12:04:00 EDT, Tablet, [id number], Partial fill upon patient request if the [...] each, 0 Refills, Maintenance, 01/08/22 14:46:00 EDT, [facility] #... Start Date: 01/08/22 Status: Ordered ProAir HFA 90 mcg/inh inhalation aerosol with adapter 1, puffs, Inhalation, Every 4 hours, PRN, # 8.5 Gm, Refills 0, Tot. Refills 0, Maintenance, 01/08/22 14:10:00 EDT, Aerosol, Route to Pharmacy Electronically, [id number], [facility] #[id number], 165, cm, 01/08/22 13:31:00... Start Date: 01/08/22 [...] Personnel Name: Kelsie DAVIS, Vern Washington Position: [facility] Physician - Primary Care Member Role: PCP Address: Address: [address] [facility] [place] [address]- Care Team Related Persons Name: KLARISSA SALINAS Address: Address: home [address] [address] Name: USHA DE LA CRUZ Address: [place] [address] Name: CHANI SEXTON Address: home [address] [place] [address]
--- OUTSIDE RECORDS SUMMARY | 2023-01-02 18:18 | XMS_ITS | Continuity of Care Document ---
Author Name Unknown Organization [facility] Adult Medicine Address [address] [place] [address]- Care Team Providers Care Communications Billing Analyst Name Role Phone Kelsie DAVIS, Vern Washington Primary Care Physician [facility] Date(s): 11/01/20 - 12/01/20 [facility] Adult Medicine [address] [place], [place] [address] Allergies, Adverse Reactions, Alerts Substance Reaction Severity [...]
--- OUTSIDE RECORDS SUMMARY | 2023-01-02 18:18 | XMS_ITS | Continuity of Care Document ---
Author Name Unknown Organization [facility] Adult [facility] Address [address] [place] [address]- Care Team Providers Care Kiln Placer Name Role Phone Kelsie DAVIS, Vern Washington Primary Care Physician [facility]counter [facility] Date(s): 05/16/20 - 06/15/20 [facility] [address] [place] [address]- Allergies, Adverse Reactions, Alerts Substance Reaction Severity [...]
--- OUTSIDE RECORDS SUMMARY | 2023-01-02 18:18 | XMS_ITS | Continuity of Care Document ---
Author Name Unknown Organization [facility] Address [address] [place] [address]- Care Team Providers Care Gaming Department Head Name Role Phone Kelsie DAVIS, Vern Washington Primary Care Physician Encounter [facility] Date(s): 04/16/22 - 05/16/[address] [address] Allergies, Adverse Reactions, Alerts No Known Allergies [...] Refills, Maintenance, 02/28/22 12:04:00 EDT, Tablet, [id number], Partial fill upon patient request if the [...] each, 0 Refills, Maintenance, 01/08/22 14:46:00 EDT, [facility] #... Start Date: 01/08/22 Status: Ordered ProAir HFA 90 mcg/inh inhalation aerosol with adapter 1, puffs, Inhalation, Every 4 hours, PRN, # 8.5 Gm, Refills 0, Tot. Refills 0, Maintenance, 01/08/22 14:10:00 EDT, Aerosol, Route to Pharmacy Electronically, [id number], [facility] #[id number], 165, cm, 01/08/22 13:31:00... Start Date: 01/08/22 [...] Physician Member Role: PCP Address: Address: [address] [facility] [place] [address]- Care Team Related Persons Name: KLARISSA SALINAS Address: [address] Address: home [address] [address] Name: USHA DE LA CRUZ Address: [place] [address] Name: CHANI SEXTON Address: home [address] [place] [address]
[2023-01-02 19:34] VITALS: BP 130/74; PULSE 68; RESP 16; TEMP 37.1; O2SAT 98
--- NOTE | 2023-01-02 19:44 | MHC.EDTECH ---
THIS PCT JUST ASSUMED CARE OF PATIENT ,VITALS SIGN TAKEN ,URINE SAMPLE COLLECTED AND SENT TO LAB .
[2023-01-02 19:51] LABS: UPreg QC Valid YES; Urine Pregnancy NEGATIVE (NEGATIVE)
[2023-01-02 19:52] LABS: Appearance Urine Turbid; Color Urine Yellow; Glucose Urine UA Negative (Negative); Leukocyte Esterase Urine Negative (Negative); Nitrite Urine Negative (Negative); Urine Blood Negative (Negative); Urine Ketones >=160 mg/dL (Negative); Urine Protein Trace mg/dL (Neg-Trace)
[2023-01-02] MEDS: Famotidine/PF 20 MG/2 ML VIAL IVPUSH (20:27)
[2023-01-02] MEDS: Ketorolac Tromethamine 15 MG/ML VIAL IVPUSH (20:27)
[2023-01-02] MEDS: 0.9 % Sodium Chloride 1,000 ML 999 ML IV ×2 (20:27→21:54)
[2023-01-02] MEDS: ondansetron HCL 4 MG/2 ML VIAL IVPUSH (20:27)
[2023-01-02] MEDS: Morphine Sulfate 4 MG/ML CARTRIDGE IVPUSH (21:53)
[2023-01-02 22:00] VITALS: BP 125/70; PULSE 55; RESP 16; TEMP 36.8; O2SAT 98
[2023-01-02] MEDS: iohexoL 350 MG/ML 100 ML INFUS..BTL IV (22:08)
== END 2023-01-03 00:17 | disposition home or self-care (01) ==
PROVIDERS: Physician Assistant Medical; Emergency Provider Emergency Medicine
DX: N83.201 Unspecified ovarian cyst, right side (principal); R10.84 Generalized abdominal pain; R11.2 Nausea with vomiting, unspecified; Z20.822 Contact with and (suspected) exposure to COVID-19; F12.90 Cannabis use, unspecified, uncomplicated; Z79.899 Other long term (current) drug therapy
CPT/HCPCS: 36415; 74018; 74177; 80053; 81003; 81025; 83735; 84702; 85025; 87635; 96361; 96374; 96375; 99284; 99285; J1885; J2270; J2405; Q9967

== ENCOUNTER 2023-03-21 15:31 | Emergency (ER) | payer OTHER, SELFPAY ==
--- NOTE | ~2023-03-21 | US_ITS ---
EXAMINATION: US ABDOMEN LIMITED CLINICAL INFORMATION: Right upper quadrant pain. COMPARISON: CT of abdomen from 01/02/2023 TECHNIQUE: Real-time imaging of the right upper quadrant abdominal viscera. FINDINGS: PANCREAS: The visualized portions of the pancreas are normal. The inferior pancreatic head and pancreatic tail are obscured by bowel gas. No evidence of focal lesion or pancreatic ductal dilatation. LIVER: Normal size, contour and echotexture. No evidence of focal liver lesion or intrahepatic ductal dilatation. GALLBLADDER: The gallbladder is physiologically distended and contains layering sludge. However, there are no discrete stones. No gallbladder wall thickening or pericholecystic fluid. COMMON BILE DUCT: Normal in caliber measuring 0.4 - 0.5 cm in diameter. RIGHT KIDNEY: Normal. No hydronephrosis. No renal calculi or focal parenchymal lesions. The kidney measures 11.8 cm in maximum dimension. FREE FLUID: None. US/US abdomen limited IMPRESSION: * No acute sonographic abnormalities in the right upper quadrant. * Gallbladder contains sludge and is otherwise unremarkable. No evidence of gallstones, cholecystitis or biliary tract obstruction.
[2023-03-21 15:41] VITALS: BP 128/63; PULSE 75; RESP 16; TEMP 36.3; O2SAT 98; BMI 36.6
--- NOTE | 2023-03-21 15:45 | ED_ITS ---
HPI - General Adult General Chief complaint: Abdominal Pain Stated complaint: Weakness, fatigue & vomitting 1 week Time Seen by Provider: 03/21/23 15:55 Source: patient Mode of arrival: ambulatory Limitations: no limitations History of Present Illness HPI narrative: Patient comes to the emergency room complaining of epigastric and right upper quadrant pain. Patient states that she gets these symptoms every few months. Patient was seen a few days at [facility]. Patient states that she had lab work done and was unremarkable, patient was discharged. Patient complaining of constipation, Related Data Previous Rx's Medication Instructions Recorded aluminum-mag hydroxide-simethicone 5 ml PO 5XD PRN dyspepsia #30 mL 12/26/22 200 mg-200 mg-20 mg/5 mL oral susp (Maalox Advanced) famotidine 20 mg tablet (Pepcid) 20 mg PO DAILY #14 tabs 12/26/22 ondansetron 4 mg disintegrating 4 mg PO Q8H PRN nausea and 12/26/22 tablet vomiting #10 tabs dicyclomine 20 mg tablet 20 mg PO QID PRN abdominal pain 01/02/23 #14 tabs ondansetron 4 mg disintegrating 4 mg PO Q8H PRN nausea and 01/02/23 tablet vomiting #10 tabs pantoprazole 40 mg tablet,delayed 40 mg PO DAILY #14 tabs 01/02/23 release hyoscyamine sulfate 0.125 mg tablet 0.125 mg PO QID #20 tabs 03/21/23 omeprazole 20 mg capsule,delayed 20 mg PO DAILY #30 caps 03/21/23 release Allergies Allergy/AdvReac Type Severity Reaction Status Date / Time No Known Allergies Allergy Verified 03/21/23 15:40 Review of Systems 2 Review of Systems: Constitutional : No Weight loss, No Fever, No Chills, No Night Sweats, No Fatigue, No Malaise ENT/Mouth : No Hearing loss, No Ear Pain, No Nasal Congestion, No Sinus Pain, No Hoarseness, No sore throat, No Rhinorrhea, No Swallowing Difficulty Eyes: No Eye Pain, No Swelling, No Redness, No Foreign Body, No Discharge, No Vision Changes Cardiovascular : No Chest Pain, No SOB, No Dyspnea on Exertion, No Orthopnea, No Edema, No Palpitations Respiratory : No Cough, No Sputum, No Wheezing, No Smoke Exposure, No Dyspnea Gastrointestinal : No Nausea, No Vomiting, No Diarrhea, No Constipation, complaining of recurrent right upper quadrant pain Genitourinary : no irregular bleeding, No Dysuria, No Urinary Frequency, No Hematuria, No Urinary Incontinence, No Urgency, No Flank Pain, No Urinary Flow Changes, No Hesitancy Musculoskeletal : No joint pain, No Myalgias, No Joint Swelling Skin : No Skin Lesions, No rash Neuro : No Weakness, No Numbness, No Paresthesias, No Loss of Consciousness, No Dizziness, No Headache Psych : No Anxiety/Panic, No Depression, No SI/HI/AH/VH, No Social Issues, Heme/Lymph: No Bruising, No Bleeding,No Lymphadenopathy Endocrine : No Polyuria, No Polydipsia, No Temperature Intolerance [facility] Social History Social History Alcohol intake: never Smoked in Last 30 Days: No Substance Use Type: Marijuana Advance Directives: No Advance Directives Information Provided: No Physical Exam ED Vital Signs: Vital Signs - 24 hr 03/21/23 15:41 03/21/23 16:00 Temperature 97.4 F 98.5 F Pulse Rate 75 65 Respiratory Rate 16 16 Blood Pressure 128/63 110/55 L Pulse Oximetry 98 98 Oxygen Delivery Method Room Air Room Air BMI result Body Mass Index 36.6 Const Other: Appearance: Alert. Oriented X3. No acute distress. Of care Eyes: Pupils equal, round and reactive to light. ENT: Pharynx normal. Neck: Normal inspection. Neck supple. No lymph nodes noted. No crepitus CVS: Normal heart rate and rhythm. Pulses normal. Normal S1 and S2 Respiratory: No respiratory distress. Breath sounds normal. No Wheezing. No rales Abdomen: Soft, tenderness to palpation in epigastric and right upper quadrant pain, negative Dobbs sign, No rigidity. No distention. Skin: Skin warm and dry. Normal skin color. Normal skin turgor. Extremities: No lower extremity edema. No Lacerations. No Rash Neuro: Oriented X 3. No motor deficit. No sensory deficit. Moving all extremities. No slurred speech. CN 2 through 12 grossly intact Psych: calm, cooperative, normal affect Course Course Course Narrative: Patient complains of vomiting for several days and upper abdominal pain, she does have a prescription for nausea medicine that is not helping as well as an antacid, was seen at [facility] for similar symptoms several days ago Denies diarrhea or dysuria Labs ordered This is rapid medical exam in triage pending full evaluation the ER by ER provider for full history and physical evaluation of results and disposition Medications Administered Discontinued Medications Generic Name Dose Route Start Last Admin Trade Name Antony PRN Reason Stop Dose Admin Al Hydroxide/Mg Hydroxide 30 ml 03/21/23 16:05 03/21/23 16:12 Magnesium Hydrox/Alum Hydrox 30 Ml Oral.Susp PO 03/21/23 16:06 30 ml ONCE ONE Administration Ketorolac Tromethamine 60 mg 03/21/23 16:03 03/21/23 16:12 Ketorolac Tromethamine 60 Mg/2 Ml Vial IM 03/21/23 16:04 60 mg ONCE ONE Administration Lidocaine HCl 15 ml 03/21/23 16:05 03/21/23 16:12 Lidocaine Hcl Viscous 2 % 15 Ml Solution MUCOUS MEM 03/21/23 16:06 15 ml ONCE ONE Administration Ondansetron HCl 4 mg 03/21/23 16:03 03/21/23 16:11 Ondansetron Odt 4 Mg Tab.Rapdis TRANSLINGU 03/21/23 16:04 4 mg ONCE ONE Administration Potassium Chloride 60 meq 03/21/23 16:17 03/21/23 16:54 Potassium Chloride Packet 20 Meq Packet PO 03/21/23 16:18 60 meq ONCE ONE Administration Medical Decision Making Medical Decision Making MDM Narrative: -all of patient's labs pending -patient has had multiple CT scans, ultrasounds here and in [facility]. Labs have been unremarkable in both places. Patient does have an ovarian cyst. However, patient has pain in the epigastric and right upper quadrant. -my interpretation of labs: Normal hematology, potassium 2.9, patient was repleted with p.o. potassium. rest of electrolytes within normal limits -ultrasound: Gallbladder contains sludge, otherwise unremarkable. -patient now states that she does not have epigastric or right quadrant pain, patient has left upper quadrant pain. -discussed with the patient that she may be having gastritis, she definitely has severe anxiety. Patient will follow-up with Gastroenterology, patient may need an endoscopy. Differential Diagnosis Differential Diagnoses: The differential diagnosis associated with the presentation includes (Cholecystitis, pancreatitis, peptic ulcer) Admission/Observation Consideration of admission/observation: Escalation of care including admission/observation considered (Given patient's history and presentation, admission was considered on arrival) Lab Data MDM Lab Attestation statement: I reviewed the patient's lab results. 03/21/23 15:52 03/21/23 15:52 Labs: Lab Results 03/21/23 03/21/23 Range/Units 15:52 16:27 WBC 10.8 (4.8-10.8) X10*3/uL RBC 4.94 (4.20-5.50) X10*6/uL Hgb 13.4 (12.0-16.0) g/dl Hct 38.8 (37.0-47.0) % MCV 78.5 L (80.0-98.0) fL MCH 27.1 (27.0-33.0) pg MCHC 34.5 (31.0-35.0) g/dl RDW 13.0 (11.0-16.0) % Plt Count 328 (160-400) X10*3/uL MPV 9.3 L (9.4-12.3) fL Immature Gran % (Auto) 0.3 (0.0-0.4) % Neut % (Auto) 76.0 H (45-73) % Lymph % (Auto) 16.2 L (20-40) % [place] % (Auto) 7.2 (2-11) % Eos % (Auto) 0.1 (0-4) % Baso % (Auto) 0.2 (0-2) % Lymph # (Auto) 1.8 (1.2-4.9) X10*3/uL [place] # (Auto) 0.8 (0.1-1.2) X10*3/uL Eos # (Auto) 0.0 (0.0-0.4) X10*3/uL Baso # (Auto) 0.0 (0.0-0.2) X10*3/uL Abs Immat Gran (auto) 0.03 (0.00-0.03) X10*3/uL Absolute Neuts (auto) 8.2 (2.0-8.3) x10*3/uL Absolute Nucleated RBC 0.000 (0.0-0.012) X10*3/uL Nucleated RBC % (auto) 0.0 (0.0-0.2) /100WBC Sodium 138 (135-145) mmol/L Potassium 2.9 L (3.3-5.1) mmol/L Chloride 100 (96-108) mmol/L Carbon Dioxide 28 (22-29) mmol/L Anion Gap 13 (12-20) BUN 9 (9-16) mg/dL Creatinine 0.76 (0.5-1.4) mg/dL Estim Creat Clear Calc 130.1 Estimated GFR > 60 Random Glucose 140 H (60-115) mg/dL Calcium 9.4 (8.4-10.2) mg/dL Total Bilirubin 0.8 (0.0-1.0) mg/dL Direct Bilirubin 0.3 (0.0-0.5) mg/dL AST 77 H (5-31) U/L ALT 82 H (0-31) U/L Alkaline Phosphatase 64 (39-117) U/L Total Protein 7.8 (6.5-8.0) g/dL Albumin 4.4 (3.5-5.0) g/dL Lipase 13 (8-78) U/L Urine Color Dark Yellow Urine Appearance Clear Urine pH 6.0 (5.0-9.0) Ur Specific [place] >= 1.030 H (1.005-1.025) Urine Protein Trace (Neg-Trace) mg/dL Urine Glucose (UA) Negative (Negative) mg/dL Urine Ketones 80 (Negative) mg/dL Urine Blood Trace H (Negative) Urine Nitrite Negative (Negative) Ur Leukocyte Esterase Trace H (Negative) Urine RBC 0-2 (0-2) /HPF Urine WBC 0-5 (0-5) /HPF Ur Squamous Epith Cells 0-2 (0-2) /HPF Calcium Oxalate Crystal Present Urine Bacteria None Seen (None Seen) Hyaline Casts 11-20 (0-2) /LPF Urine Test NEGATIVE (NEGATIVE) Independent Interpretation I performed an independent interpretation of an: Ultrasound Radiology Impression Discussion of test interpretation with radiology: I have reviewed the radiologist's reading. Radiologist Impression: FINDINGS: PANCREAS: The visualized portions of the pancreas are normal. The inferior pancreatic head and pancreatic tail are obscured by bowel gas. No evidence of focal lesion or pancreatic ductal dilatation. LIVER: Normal size, contour and echotexture. No evidence of focal liver lesion or intrahepatic ductal dilatation. GALLBLADDER: The gallbladder is physiologically distended and contains layering sludge. However, there are no discrete stones. No gallbladder wall thickening or pericholecystic fluid. COMMON BILE DUCT: Normal in caliber measuring 0.4 - 0.5 cm in diameter. RIGHT KIDNEY: Normal. No hydronephrosis. No renal calculi or focal parenchymal lesions. The kidney measures 11.8 cm in maximum dimension. FREE FLUID: None. US/US abdomen limited IMPRESSION: * No acute sonographic abnormalities in the right upper quadrant. * Gallbladder contains sludge and is otherwise unremarkable. No evidence of gallstones, cholecystitis or biliary tract obstruction. External Record Review External record reviewed: Prior outpatient labs and Prior outpatient radiology Critical Care Time Critical Care Time Critical Care Time: Yes Total Critical Care Time: 60 Attestation: I have personally provided critical care time. Time includes review of lab data, radiology results, discussion with consultants, and monitoring for potential decompensation. Intervention performed as documented. Discharge Plan Discharge Clinical Impression: Abdominal pain Patient Disposition: Home, Self-Care Instructions: Abdominal Pain (ED) Additional Instructions: Please follow-up with your primary care physician tomorrow. If you have any worsening or new symptoms, please return to the emergency room or call 911 Prescriptions: New omeprazole 20 mg capsule,delayed release(DR/EC) 20 mg PO DAILY Qty: 30 0RF hyoscyamine sulfate 0.125 mg tablet 0.125 mg PO QID Qty: 20 0RF No Action ondansetron 4 mg tablet,disintegrating 4 mg PO Q8H PRN (Reason: nausea and vomiting) Qty: 10 0RF pantoprazole 40 mg tablet,delayed release (DR/EC) 40 mg PO DAILY Qty: 14 0RF dicyclomine 20 mg tablet 20 mg PO QID PRN (Reason: abdominal pain) Qty: 14 0RF alum-mag hydroxide-simeth [Maalox Advanced] 200-200-20 mg/5 mL suspension 5 ml PO 5XD PRN (Reason: dyspepsia) Qty: 30 0RF Rx Instructions: administer between meals and at bedtime ondansetron 4 mg tablet,disintegrating 4 mg PO Q8H PRN (Reason: nausea and vomiting) Qty: 10 0RF famotidine [Pepcid] 20 mg tablet 20 mg PO DAILY Qty: 14 0RF
[2023-03-21 15:57] LABS: MANUAL DIFF FLAG NO
[2023-03-21 15:58] LABS: Basophils Percent Auto 0.2 % (0-2); Eosinophils Percent Auto 0.1 % (0-4); Hematocrit 38.8 % (37.0-47.0); Hemoglobin 13.4 g/dl (12.0-16.0); Imm Gran Abs Auto 0.03 X10*3/uL (0.00-0.03); Imm Gran Pct Auto 0.3 % (0.0-0.4); Lymphocytes Absolute Auto 1.8 X10*3/uL (1.2-4.9); Lymphocytes Percent Auto 16.2 % (20-40); Mean Corpuscular HGB Conc 34.5 g/dl (31.0-35.0); Mean Corpuscular Hemoglobin 27.1 pg (27.0-33.0); Mean Corpuscular Volume 78.5 fL (80.0-98.0); Mean Platelet Volume 9.3 fL (9.4-12.3); Monocytes Absolute Auto 0.8 X10*3/uL (0.1-1.2); Monocytes Percent Auto 7.2 % (2-11); Neutrophils Absolute Auto 8.2 x10*3/uL (2.0-8.3); Platelet Count 328 X10*3/uL (160-400); Red Blood Count 4.94 X10*6/uL (4.20-5.50); White Blood Count 10.8 X10*3/uL (4.8-10.8)
[2023-03-21 16:00] VITALS: BP 110/55; PULSE 65; RESP 16; TEMP 36.9; O2SAT 98
[2023-03-21] MEDS: Ondansetron ODT 4 MG TAB.RAPDIS TRANSLINGU (16:11)
[2023-03-21] MEDS: Magnesium Hydrox/Alum Hydrox 30 ML ORAL.SUSP PO (16:12)
[2023-03-21] MEDS: Lidocaine HCl Viscous 2 % 15 ML SOLUTION MUCOUS MEM (16:12)
[2023-03-21] MEDS: Ketorolac Tromethamine 60 MG/2 ML VIAL IM (16:12)
[2023-03-21 16:14] LABS: Alanine Aminotransferase 82 U/L (0-31); Albumin Level 4.4 g/dL (3.5-5.0); Alkaline Phosphatase 64 U/L (39-117); Anion Gap 13 (12-20); Aspartate Amino Transferase 77 U/L (5-31); Bilirubin Direct 0.3 mg/dL (0.0-0.5); Bilirubin Total 0.8 mg/dL (0.0-1.0); Blood Urea Nitrogen 9 mg/dL (9-16); Calcium 9.4 mg/dL (8.4-10.2); Carbon Dioxide 28 mmol/L (22-29); Chloride 100 mmol/L (96-108); Creatinine Clr Calc Pharmacy 130.1; Estimated Glomerular Filt Rate > 60; Glucose Random 140 mg/dL (60-115); Lipase 13 U/L (8-78); Potassium 2.9 mmol/L (3.3-5.1); Sodium 138 mmol/L (135-145); Total Protein 7.8 g/dL (6.5-8.0)
[2023-03-21 16:37] LABS: Appearance Urine Clear; Color Urine Dark Yellow; Glucose Urine UA Negative (Negative); Leukocyte Esterase Urine Trace (Negative); Nitrite Urine Negative (Negative); Specific Gravity - Urine >= 1.030 (1.005-1.025); UMIC TRIGGER UACC YES; Urine Blood Trace (Negative); Urine Ketones 80 mg/dL (Negative); Urine Protein Trace mg/dL (Neg-Trace)
[2023-03-21 16:38] LABS: UPreg QC Valid YES; Urine Pregnancy NEGATIVE (NEGATIVE)
[2023-03-21] MEDS: Potassium Chloride Packet 20 MEQ PACKET 60 MEQ PO (16:54)
[2023-03-21 17:08] LABS: Bacteria Urine None Seen (None Seen); Calcium Oxalate Crystals Urine Present; RBC Urine 0-2 /HPF (0-2); Squamous Epithelial Cell Urine 0-2 /HPF (0-2); WBC Urine 0-5 /HPF (0-5)
--- OUTSIDE RECORDS SUMMARY | 2023-03-21 17:19 | XMS_ITS | Continuity of Care Document ---
Author Name Unknown Organization [facility] ter Address [address] [place] [id number]- Care Team Providers Care Professor Of Physics Name Role Phone Kelsie DAVIS, Vern Washington Primary Care Physician Encounter [facility] [place] Date(s): 12/27/22 - 01/03/[address] [address]- Encounter Diagnosis Procedure and treatment not carried out for other reasons(Final) - Discharge Disposition: A-D/C Walkout Attending Physician: Lori Chavez MD Admitting Physician: Lori Chavez MD Allergies, Adverse Reactions, Alerts No Known [...] Refills, Maintenance, 02/28/22 12:04:00 EDT, Tablet, [id number], Partial fill upon patient request if the prescription is for a schedule II opioid drug., 1 tablet By Mouth Daily, 165, cm, 02/28/22 11:4... Start Date: 02/28/22 Status: Ordered famotidine 20 mg oral tablet 20 mg, 1, tablet, By Mouth, Daily, # 30 tablet, Refills 0, Tot. Refills 0, Maintenance, 12/22/22 16:03:00 EDT, Route to Pharmacy Electronically, [facility][id number], Partial fill upon patientrequest if the prescription is for a schedule II op... Start Date: 12/22/22 Status: Ordered metronidazole topical 0.75% gel with applicator See Instructions, 1 full applicator (5g) vaginally at bedtime for 5 days, # 70 Gm, 0 Refills, Maintenance, 12/24/22 11:21:00 EDT, Gel, [facility] #[id number], Partial fill upon patient request if the prescription is for a schedule II opioid drug.... Start Date: 12/24/22 Status: Ordered Nexplanon 68 mg subcutaneous implant 1 each = 68 mg, Subcutaneous Infusion, Once, 0 Refills, Maintenance, 10/20/18 12:46:42 EDT Start Date: 10/20/18 Status: Ordered ondansetron 4 mg oral tablet 1 tablet = 4 mg, By Mouth, Every 8 hours, PRN Nausea & Vomiting, # 20 tablet, 0 Refills, Maintenance, 12/22/22 16:03:00 EDT, Tablet, [facility] #[id number], Partial fill upon patient requestif the prescription is for a schedule II opioid drug.,... Start Date: 12/22/22 Status: Ordered Paxlovid 150 mg-100 mg oral tablet See Instructions, 300mg nirmatrelvir (two 150mg tablets) with 100mg ritonavir (one tablet). All three tablets taken together twice daily for 5 days, with or without food, # 30 each, 0 Refills, Maintenance, 01/08/22 14:46:00 EDT, [facility] #... Start Date: 01/08/22 Status: Ordered ProAir HFA 90 mcg/inh inhalation aerosol with adapter 1, puffs, Inhalation, Every 4 hours, PRN, # 8.5 Gm, Refills 0, Tot. Refills 0, Maintenance, 01/08/22 14:10:00 EDT, Aerosol, Route to Pharmacy Electronically, [id number], [facility] #[id number], 165, cm, 01/08/22 13:31:00... Start Date: 01/08/22 [...] Most recent to oldest [Reference Range]: 1 Weight 103.0 kg (12/27/22 10:22 AM) Oxygen Saturation [94-100 %] 100 % (12/27/22 10:22 AM) Pulse Rate [55-90 bpm] 70 bpm (12/27/22 10:22 AM) Blood Pressure [90-138/55-84 mm Hg] 131/ 77mm Hg (12/27/22 10:22 AM) Respiratory Rate [16-30 br/min] 17 br/mi n (12/27/22 10:22 AM) Temperature [96.8-100.4 DegF] 98.2 DegF (12/27/22 10:22 AM) Blood pressure sites Arm, right (12/27/22 10:22 AM) Temperature Route Oral (12/27/22 10:22 AM) Weight Obtained Via Standing scale (12/27/22 10:22 AM) Social History Social History Type Response Smoking Status Never (less than 100 in lifetime) entered on: 10/08/21 Sex History and physical note * Event Display: History and Physical Hospital Authored Date: Patient Care team information Care Team Personnel Name: Kelsie DAVIS, Vern Washington Position: S Physician - Primary Care Member Role: PCP Address: Address: [address] [place] [address] [place] [address]- Care Team Related Persons Name: KLARISSA SALINAS Address: Address: [address] [address] Name: USHA DE LA CRUZ Address: [place] [address] Name: CHANI SEXTON Address: [address] [address]
--- OUTSIDE RECORDS SUMMARY | 2023-03-21 17:20 | XMS_ITS | Continuity of Care Document ---
Author Name Unknown Organization [facility] Address [address] [place] [address]- Care Team Providers Care Insurance Coder Name Role Phone Kelsie DAVIS, Vern Washington Primary Care Physician [facility] Date[facility]s): 12/19/22 - 01/18/23 [facility] [address] [place] [id number] Allergies, Adverse Reactions, Alerts No Known [...] Refills, Maintenance, 02/28/22 12:04:00 EDT, Tablet, [id number], Partial fill upon patient request if the prescription is for a schedule II opioid drug., 1 tablet By Mouth Daily, 165, cm, 02/28/22 11:4... Start Date: 02/28/22 Status: Ordered famotidine 20 mg oral tablet 20 mg, 1, tablet, By Mouth, Daily, # 30 tablet, Refills 0, Tot. Refills 0, Maintenance, 12/22/22 16:03:00 EDT, Route to Pharmacy Electronically, [facility] #[id number], Partial fill upon patientrequest if the prescription is for a schedule II op... Start Date: 12/22/22 Status: Ordered metronidazole topical 0.75% gel with applicator See Instructions, 1 full applicator (5g) vaginally at bedtime for 5 days, # 70 Gm, 0 Refills, Maintenance, 12/24/22 11:21:00 EDT, Gel, [facility] #[id number], Partial fill upon patient request if the [...] 0 Refills, Maintenance, 12/22/22 16:03:00 EDT, Tablet, [facility] #[id number], Partial fill upon patient requestif the prescription is for a schedule II opioid drug.,... Start Date: 12/22/22 Status: Ordered Paxlovid 150 mg-100 mg oral tablet See Instructions, 300mg nirmatrelvir (two 150mg tablets) with 100mg ritonavir (one tablet). All three tablets taken together twice daily for 5 days, with or without food, # 30 each, 0 Refills, Maintenance, 01/08/22 14:46:00 EDT, [facility] #... Start Date: 01/08/22 Status: Ordered ProAir HFA 90 mcg/inh inhalation aerosol with adapter 1, puffs, Inhalation, Every 4 hours, PRN, # 8.5 Gm, Refills 0, Tot. Refills 0, Maintenance, 01/08/22 14:10:00 EDT, Aerosol, Route to Pharmacy Electronically, [id number], [facility] #[id number], 165, cm, 01/08/22 13:31:00... Start Date: 01/08/22 [...] Personnel Name: Kelsie DAVIS, Vern Washington Position: [facility] Physician - Primary Care Member Role: PCP Address: Address: [address] [place] [address] [place] [address]- [place] Care Team Related Persons Name: KLARISSA SALINAS Address: [address] Address: home [address] [address] Name: USHA DE LA CRUZ Address: [place] [address] Name: CHANI SEXTON Address: home [address] [place] [address]
--- OUTSIDE RECORDS SUMMARY | 2023-03-21 17:20 | XMS_ITS | Continuity of Care Document ---
Author Name Unknown Organization [facility] Address [address] [place] [address]- Care Team Providers Care Grinding Machine Operator Portable Name Role Phone Kelsie DAVIS, Vern Washington Primary Care Physician [facility] Date(s): 01/07/23 - 02/06/[address] [address] Allergies, Adverse Reactions, Alerts No Known [...] Refills, Maintenance, 02/28/22 12:04:00 EDT, Tablet, [id number], Partial fill upon patient request if the prescription is for a schedule II opioid drug., 1 tablet By Mouth Daily, 165, cm, 02/28/22 11:4... Start Date: 02/28/22 Status: Ordered famotidine 20 mg oral tablet 20 mg, 1, tablet, By Mouth, Daily, # 30 tablet, Refills 0, Tot. Refills 0, Maintenance, 12/22/22 16:03:00 EDT, Route to Pharmacy Electronically, [facility] #[id number], Partial fill upon patientrequest if the prescription is for a schedule II op... Start Date: 12/22/22 Status: Ordered metronidazole topical 0.75% gel with applicator See Instructions, 1 full applicator (5g) vaginally at bedtime for 5 days, # 70 Gm, 0 Refills, Maintenance, 12/24/22 11:21:00 EDT, Gel, [facility] #[id number], Partial fill upon patient request if the [...] 0 Refills, Maintenance, 12/22/22 16:03:00 EDT, Tablet, [facility] #[id number], Partial fill upon patient requestif the prescription is for a schedule II opioid drug.,... Start Date: 12/22/22 Status: Ordered Paxlovid 150 mg-100 mg oral tablet See Instructions, 300mg nirmatrelvir (two 150mg tablets) with 100mg ritonavir (one tablet). All three tablets taken together twice daily for 5 days, with or without food, # 30 each, 0 Refills, Maintenance, 01/08/22 14:46:00 EDT, [facility] #... Start Date: 01/08/22 Status: Ordered ProAir HFA 90 mcg/inh inhalation aerosol with adapter 1, puffs, Inhalation, Every 4 hours, PRN, # 8.5 Gm, Refills 0, Tot. Refills 0, Maintenance, 01/08/22 14:10:00 EDT, Aerosol, Route to Pharmacy Electronically, [id number], [facility][id number], 165, cm, 01/08/22 13:31:00... Start Date: 01/08/22 [...] Care Member Role: PCP Address: Address: [address] [place] [address]- Care Team Related Persons Name: KLARISSA SALINAS Address: [address] Address: home [address] [address] Name: USHA DE LA CRUZ Address: [place] [address] Name: CHANI SEXTON Address: home [address] [place] [address]
--- OUTSIDE RECORDS SUMMARY | 2023-03-21 17:20 | XMS_ITS | Continuity of Care Document ---
Author Name Unknown Organization [facility] Address [address] [place] [address]- Care Team Providers Care Ocean Biologist Name Role Phone Kelsie DAVIS, Vern Washington Primary Care Physician [facility] Date[facility]s): 12/29/22 - 01/28/23 [facility] [address] [place] [id number] Allergies, Adverse Reactions, Alerts No Known [...] Refills, Maintenance, 02/28/22 12:04:00 EDT, Tablet, [id number], Partial fill upon patient request if the prescription is for a schedule II opioid drug., 1 tablet By Mouth Daily, 165, cm, 02/28/22 11:4... Start Date: 02/28/22 Status: Ordered famotidine 20 mg oral tablet 20 mg, 1, tablet, By Mouth, Daily, # 30 tablet, Refills 0, Tot. Refills 0, Maintenance, 12/22/22 16:03:00 EDT, Route to Pharmacy Electronically, [facility] #[id number], Partial fill upon patientrequest if the prescription is for a schedule II op... Start Date: 12/22/22 Status: Ordered metronidazole topical 0.75% gel with applicator See Instructions, 1 full applicator (5g) vaginally at bedtime for 5 days, # 70 Gm, 0 Refills, Maintenance, 12/24/22 11:21:00 EDT, Gel, [facility] #[id number], Partial fill upon patient request if the [...] 0 Refills, Maintenance, 12/22/22 16:03:00 EDT, Tablet, [facility] #[id number], Partial fill upon patient requestif the prescription is for a schedule II opioid drug.,... Start Date: 12/22/22 Status: Ordered Paxlovid 150 mg-100 mg oral tablet See Instructions, 300mg nirmatrelvir (two 150mg tablets) with 100mg ritonavir (one tablet). All three tablets taken together twice daily for 5 days, with or without food, # 30 each, 0 Refills, Maintenance, 01/08/22 14:46:00 EDT, [facility] #... Start Date: 01/08/22 Status: Ordered ProAir HFA 90 mcg/inh inhalation aerosol with adapter 1, puffs, Inhalation, Every 4 hours, PRN, # 8.5 Gm, Refills 0, Tot. Refills 0, Maintenance, 01/08/22 14:10:00 EDT, Aerosol, Route to Pharmacy Electronically, [id number], [facility] #[id number], 165, cm, 01/08/22 13:31:00... Start Date: 01/08/22 [...] Personnel Name: Kelsie DAVIS, Vern Washington Position: [facility] Physician - Primary Care Member Role: PCP Address: Address: [address] [place] [address] [place] [address]- [place] Care Team Related Persons Name: KLARISSA SALINAS Address: [address] Address: [address] [address] Name: USHA DE LA CRUZ Address: [place] [address] Name: CHANI SEXTON Address: home [address] [place] [address]
--- OUTSIDE RECORDS SUMMARY | 2023-03-21 17:20 | XMS_ITS | Continuity of Care Document ---
Author Name Unknown Organization [facility] Address [address] [place] [address]- Care Team Providers Care Soil Engineer Name Role Phone Kelsie DAVIS, Vern Washington Primary Care Physician [facility] Date(s): 02/04/23 - 03/06/[address] [address] Attending Physician: Mckenna Thomas Admitting Physician: Mckenna [...] Refills, Maintenance, 02/28/22 12:04:00 EDT, Tablet, [id number], Partial fill upon patient request if the prescription is for a schedule II opioid drug., 1 tablet By Mouth Daily, 165, cm, 02/28/22 11:4... Start Date: 02/28/22 Status: Ordered famotidine 20 mg oral tablet 20 mg, 1, tablet, By Mouth, Daily, # 30 tablet, Refills 0, Tot. Refills 0, Maintenance, 12/22/22 16:03:00 EDT, Route to Pharmacy Electronically, [facility] #[id number], Partial fill upon patientrequest if the prescription is for a schedule II op... Start Date: 12/22/22 Status: Ordered metronidazole topical 0.75% gel with applicator See Instructions, 1 full applicator (5g) vaginally at bedtime for 5 days, # 70 Gm, 0 Refills, Maintenance, 12/24/22 11:21:00 EDT, Gel, [facility] #[id number], Partial fill upon patient request if the [...] 0 Refills, Maintenance, 12/22/22 16:03:00 EDT, Tablet, [facility] #[id number], Partial fill upon patient requestif the prescription is for a schedule II opioid drug.,... Start Date: 12/22/22 Status: Ordered Paxlovid 150 mg-100 mg oral tablet See Instructions, 300mg nirmatrelvir (two 150mg tablets) with 100mg ritonavir (one tablet). All three tablets taken together twice daily for 5 days, with or without food, # 30 each, 0 Refills, Maintenance, 01/08/22 14:46:00 EDT, [facility] #... Start Date: 01/08/22 Status: Ordered ProAir HFA 90 mcg/inh inhalation aerosol with adapter 1, puffs, Inhalation, Every 4 hours, PRN, # 8.5 Gm, Refills 0, Tot. Refills 0, Maintenance, 01/08/22 14:10:00 EDT, Aerosol, Route to Pharmacy Electronically, [id number], [facility] #[id number], 604, cm, 01/08/22 13:31:00... Start Date: 01/08/22 Status: [...] Personnel Name: Kelsie DAVIS, Vern Washington Position: [facility] Physician - Primary Care Member Role: PCP Address: Address: [address] [facility] [place] [address]- Care Team Related Persons Name: KLARISSA SALINAS Address: [address] Address: [address] [address] Name: USHA DE LA CRUZ Address: [place] [address] Name: CHANI SEXTON Address: home [address] [place] [address]
--- OUTSIDE RECORDS SUMMARY | 2023-03-21 17:20 | XMS_ITS | Continuity of Care Document ---
Author Name Unknown Organization [facility] Address [address] [place] [address]- Care Team Providers Care Pier Master Name Role Phone Kelsie DAVIS, Vern Washington Primary Care Physician [facility]): 12/24/22 - 01/23/23 [facility] [address] [place] [id number] Allergies, Adverse Reactions, Alerts No [...] Refills, Maintenance, 02/28/22 12:04:00 EDT, Tablet, [id number], Partial fill upon patient request if the prescription is for a schedule II opioid drug., 1 tablet By Mouth Daily, 165, cm, 02/28/22 11:4... Start Date: 02/28/22 Status: Ordered famotidine 20 mg oral tablet 20 mg, 1, tablet, By Mouth, Daily, # 30 tablet, Refills 0, Tot. Refills 0, Maintenance, 12/22/22 16:03:00 EDT, Route to Pharmacy Electronically, [facility] #[id number], Partial fill upon patientrequest if the prescription is for a schedule II op... Start Date: 12/22/22 Status: Ordered metronidazole topical 0.75% gel with applicator See Instructions, 1 full applicator (5g) vaginally at bedtime for 5 days, # 70 Gm, 0 Refills, Maintenance, 12/24/22 11:21:00 EDT, Gel, [facility] #[id number], Partial fill upon patient request if the [...] 0 Refills, Maintenance, 12/22/22 16:03:00 EDT, Tablet, [facility] #[id number], Partial fill upon patient requestif the prescription is for a schedule II opioid drug.,... Start Date: 12/22/22 Status: Ordered Paxlovid 150 mg-100 mg oral tablet See Instructions, 300mg nirmatrelvir (two 150mg tablets) with 100mg ritonavir (one tablet). All three tablets taken together twice daily for 5 days, with or without food, # 30 each, 0 Refills, Maintenance, 01/08/22 14:46:00 EDT, [facility] #... Start Date: 01/08/22 Status: Ordered ProAir HFA 90 mcg/inh inhalation aerosol with adapter 1, puffs, Inhalation, Every 4 hours, PRN, # 8.5 Gm, Refills 0, Tot. Refills 0, Maintenance, 01/08/22 14:10:00 EDT, Aerosol, Route to Pharmacy Electronically, [id number], [facility] #[id number], 165, cm, 01/08/22 13:31:00... Start Date: 01/08/22 [...] Personnel Name: Kelsie DAVIS, Vern Washington Position: [facility] Physician - Primary Care Member Role: PCP Address: Address: [address] [place] [address] [place] [address]- [place] Care Team Related Persons Name: KLARISSA SALINAS Address: [address] Address: home [address] [address] Name: USHA DE LA CRUZ Address: [place] [address] Name: CHANI SEXTON Address: home [address] [place] [address]
--- OUTSIDE RECORDS SUMMARY | 2023-03-21 17:20 | XMS_ITS | Continuity of Care Document ---
Author Name Unknown Organization [facility] Address [address] [place] [address]- Care Team Providers Care Financial Quantitative Analyst Name Role Phone Kelsie DAVIS, Vern Washington Primary Care Physician [facility]): 12/24/22 - 01/23/23 [facility] [address] [place] [id number] Allergies, Adverse Reactions, Alerts No Known [...] Refills, Maintenance, 02/28/22 12:04:00 EDT, Tablet, [id number], Partial fill upon patient request if the prescription is for a schedule II opioid drug., 1 tablet By Mouth Daily, 165, cm, 02/28/22 11:4... Start Date: 02/28/22 Status: Ordered famotidine 20 mg oral tablet 20 mg, 1, tablet, By Mouth, Daily, # 30 tablet, Refills 0, Tot. Refills 0, Maintenance, 12/22/22 16:03:00 EDT, Route to Pharmacy Electronically, [facility] #[id number], Partial fill upon patientrequest if the prescription is for a schedule II op... Start Date: 12/22/22 Status: Ordered metronidazole topical 0.75% gel with applicator See Instructions, 1 full applicator (5g) vaginally at bedtime for 5 days, # 70 Gm, 0 Refills, Maintenance, 12/24/22 11:21:00 EDT, Gel, [facility] #[id number], Partial fill upon patient request if the [...] 0 Refills, Maintenance, 12/22/22 16:03:00 EDT, Tablet, [facility] #[id number], Partial fill upon patient requestif the prescription is for a schedule II opioid drug.,... Start Date: 12/22/22 Status: Ordered Paxlovid 150 mg-100 mg oral tablet See Instructions, 300mg nirmatrelvir (two 150mg tablets) with 100mg ritonavir (one tablet). All three tablets taken together twice daily for 5 days, with or without food, # 30 each, 0 Refills, Maintenance, 01/08/22 14:46:00 EDT, [facility] #... Start Date: 01/08/22 Status: Ordered ProAir HFA 90 mcg/inh inhalation aerosol with adapter 1, puffs, Inhalation, Every 4 hours, PRN, # 8.5 Gm, Refills 0, Tot. Refills 0, Maintenance, 01/08/22 14:10:00 EDT, Aerosol, Route to Pharmacy Electronically, [id number], [facility] #[id number], 165, cm, 01/08/22 13:31:00... Start Date: 01/08/22 [...] Personnel Name: Kelsie DAVIS, Vern Washington Position: [facility] Physician - Primary Care Member Role: PCP Address: Address: [address] [place] [address] [place] [address]- [place] Care Team Related Persons Name: KLARISSA SALINAS Address: [address] Address: [address] [address] Name: USHA DE LA CRUZ Address: [place] [address] Name: CHANI SEXTON Address: home [address] [place] [address]
--- OUTSIDE RECORDS SUMMARY | 2023-03-21 17:20 | XMS_ITS | Continuity of Care Document ---
Author Name Unknown Organization [facility] Address [address] [place] [address]- Care Team Providers Care Windows Admin Name Role Phone Kelsie DAVIS, Vern Washington Primary Care Physician [facility]): 01/07/23 - 03/06/[address] [address] Attending Physician: Not on Staff, Attending MD Allergies, Adverse Reactions, Alerts No Known [...] Refills, Maintenance, 02/28/22 12:04:00 EDT, Tablet, [id number], Partial fill upon patient request if the prescription is for a schedule II opioid drug., 1 tablet By Mouth Daily, 165, cm, 02/28/22 11:4... Start Date: 02/28/22 Status: Ordered famotidine 20 mg oral tablet 20 mg, 1, tablet, By Mouth, Daily, # 30 tablet, Refills 0, Tot. Refills 0, Maintenance, 12/22/22 16:03:00 EDT, Route to Pharmacy Electronically, [facility] #[id number], Partial fill upon patientrequest if the prescription is for a schedule II op... Start Date: 12/22/22 Status: Ordered metronidazole topical 0.75% gel with applicator See Instructions, 1 full applicator (5g) vaginally at bedtime for 5 days, # 70 Gm, 0 Refills, Maintenance, 12/24/22 11:21:00 EDT, Gel, [facility] #[id number], Partial fill upon patient request if the [...] 0 Refills, Maintenance, 12/22/22 16:03:00 EDT, Tablet, [facility] #[id number], Partial fill upon patient requestif the prescription is for a schedule II opioid drug.,... Start Date: 12/22/22 Status: Ordered Paxlovid 150 mg-100 mg oral tablet See Instructions, 300mg nirmatrelvir (two 150mg tablets) with 100mg ritonavir (one tablet). All three tablets taken together twice daily for 5 days, with or without food, # 30 each, 0 Refills, Maintenance, 01/08/22 14:46:00 EDT, [facility] #... Start Date: 01/08/22 Status: Ordered ProAir HFA 90 mcg/inh inhalation aerosol with adapter 1, puffs, Inhalation, Every 4 hours, PRN, # 8.5 Gm, Refills 0, Tot. Refills 0, Maintenance, 01/08/22 14:10:00 EDT, Aerosol, Route to Pharmacy Electronically, [id number], [facility][id number], 165, cm, 01/08/22 13:31:00... Start Date: 01/08/22 [...] Care Member Role: PCP Address: Address: [address] [facility] [place] [address]- Care Team Related Persons Name: KLARISSA SALINAS Address: [address] Address: [address] [address] Name: USHA DE LA CRUZ Address: [place] [address] Name: CHANI SEXTON Address: home [address] [place] [address]
--- OUTSIDE RECORDS SUMMARY | 2023-03-21 17:20 | XMS_ITS | Continuity of Care Document ---
Author Name Unknown Organization [facility] Address [address] [place] [address]- Care Team Providers Care Sizing Sprayer Name Role Phone Kelsie DAVIS, Vern Washington Primary Care Physician [facility] Date[facility]): 12/[facility]/22 - 01/19/23 [facility] [address] [place] [id number] Attending Physician: Vern Iglesias MD Admitting [...] Refills, Maintenance, 02/28/22 12:04:00 EDT, Tablet, [id number], Partial fill upon patient request if the prescription is for a schedule II opioid drug., 1 tablet By Mouth Daily, 165, cm, 02/28/22 11:4... Start Date: 02/28/22 Status: Ordered famotidine 20 mg oral tablet 20 mg, 1, tablet, By Mouth, Daily, # 30 tablet, Refills 0, Tot. Refills 0, Maintenance, 12/22/22 16:03:00 EDT, Route to Pharmacy Electronically, [facility] #[id number], Partial fill upon patientrequest if the prescription is for a schedule II op... Start Date: 12/22/22 Status: Ordered metronidazole topical 0.75% gel with applicator See Instructions, 1 full applicator (5g) vaginally at bedtime for 5 days, # 70 Gm, 0 Refills, Maintenance, 12/24/22 11:21:00 EDT, Gel, [facility] #[id number], Partial fill upon patient request if the [...] 0 Refills, Maintenance, 12/22/22 16:03:00 EDT, Tablet, [facility] #[id number], Partial fill upon patient requestif the prescription is for a schedule II opioid drug.,... Start Date: 12/22/22 Status: Ordered Paxlovid 150 mg-100 mg oral tablet See Instructions, 300mg nirmatrelvir (two 150mg tablets) with 100mg ritonavir (one tablet). All three tablets taken together twice daily for 5 days, with or without food, # 30 each, 0 Refills, Maintenance, 01/08/22 14:46:00 EDT, [facility] #... Start Date: 01/08/22 Status: Ordered ProAir HFA 90 mcg/inh inhalation aerosol with adapter 1, puffs, Inhalation, Every 4 hours, PRN, # 8.5 Gm, Refills 0, Tot. Refills 0, Maintenance, 01/08/22 14:10:00 EDT, Aerosol, Route to Pharmacy Electronically, [id number], [facility][id number], 165, cm, 01/08/22 13:31:00... Start Date: 01/08/22 [...] Care Member Role: PCP Address: Address: [address] [facility] [place] [address]- Care Team Related Persons Name: KLARISSA SALINAS Address: [id number] Address: home [address] [address] Name: USHA DE LA CRUZ Address: [place] [address] Name: CHANI SEXTON Address: home [address] [place] [address]
[2023-03-21 17:53] VITALS: BP 127/76; PULSE 66; RESP 18; TEMP 36.9; O2SAT 97
--- NOTE | 2023-03-21 17:54 | PC.NURSE ---
Md Mclain at bedsideto discuss plan w pt for d.c.. Pt reports her pain has come back. No respiratory distress. VS stable. Breathing well. +CMS. Finished po K. NSR on tele.
== END 2023-03-21 18:07 | disposition home or self-care (01) ==
PROVIDERS: Physician Assistant Medical; Emergency Provider Emergency Medicine
DX: R10.9 Unspecified abdominal pain (principal)
CPT/HCPCS: 36415; 76705; 80048; 80076; 81001; 81025; 83690; 85025; 96372; 99284; J1885

== ENCOUNTER 2023-06-19 13:42 | Emergency (ER) | payer OTHER, SELFPAY ==
[2023-06-19 13:58] VITALS: BP 139/80; PULSE 69; RESP 18; TEMP 37; O2SAT 99; BMI 33.3
--- NOTE | 2023-06-19 13:59 | ED_ITS ---
HPI - General Adult General Chief complaint: Nausea/Vomiting/Diarrhea Stated complaint: vomiting 1xweek Time Seen by Provider: 06/19/23 16:01 Source: patient, RN notes reviewed and old records reviewed Mode of arrival: ambulatory Limitations: no limitations History of Present Illness HPI narrative: 28 year-old female who denies any past medical history presents for evaluation of vomiting Patient reports that she has been vomiting for approximately 1 week. She states that a few days ago she went to [facility] and ?they did not do anything and told me just to get better on my own. ? Patient denies any history abdominal surgeries. She states that her entire abdomen hurts. She denies any fevers or chills endorses weakness Patient states that she has never seen a GI doctor She endorses marijuana use but states that she has not been smoking since she got sick 1 week ago Related Data Previous Rx's Medication Instructions Recorded aluminum-mag hydroxide-simethicone 5 ml PO 5XD PRN dyspepsia #30 mL 12/26/22 200 mg-200 mg-20 mg/5 mL oral susp (Maalox Advanced) famotidine 20 mg tablet (Pepcid) 20 mg PO DAILY #14 tabs 12/26/22 ondansetron 4 mg disintegrating 4 mg PO Q8H PRN nausea and 12/26/22 tablet vomiting #10 tabs dicyclomine 20 mg tablet 20 mg PO QID PRN abdominal pain 01/02/23 #14 tabs ondansetron 4 mg disintegrating 4 mg PO Q8H PRN nausea and 01/02/23 tablet vomiting #10 tabs pantoprazole 40 mg tablet,delayed 40 mg PO DAILY #14 tabs 01/02/23 release hyoscyamine sulfate 0.125 mg tablet 0.125 mg PO QID #20 tabs 03/21/23 omeprazole 20 mg capsule,delayed 20 mg PO DAILY #30 caps 03/21/23 release ondansetron 4 mg disintegrating 4 mg PO Q8H PRN nausea and 06/19/23 tablet vomiting #20 tabs Allergies Allergy/AdvReac Type Severity Reaction Status Date / Time No Known Allergies Allergy Verified 06/19/23 14:00 Review of Systems 2 Constitutional: Constitutional: Reports chills, Denies fever(s) and Reports weakness ENT: Denies sore throat Cardiovascular: Cardiovascular: Denies chest pain and Denies dyspnea Respiratory: Respiratory: Denies cough and Denies dyspnea Gastrointestinal: Gastrointestinal: Reports abdominal pain, Denies melena, Denies hematochezia, Reports nausea and Reports vomiting Musculoskeletal: Musculoskeletal: Denies back pain Integumentary/Breasts: Skin/Breast: Denies rash Neurologic: Reports weakness PMFSH Social History Social History Alcohol intake: never Use of substances other than those prescribed or required for medical reasons: Yes Substance Use Type: Marijuana Advance Directives: No Advance Directives Information Provided: No Physical Exam ED Vital Signs: Vital Signs - 24 hr 06/19/23 13:58 06/19/23 16:01 06/19/23 19:04 Temperature 98.6 F 97.9 F 99.0 F Pulse Rate 69 70 98 Pulse Rate [Monitor] Respiratory Rate 18 22 H 12 Blood Pressure 139/80 146/99 H 106/68 Pulse Oximetry 99 99 99 Oxygen Delivery Method Room Air Room Air Room Air 06/19/23 19:24 06/19/23 20:57 Temperature 98.3 F Pulse Rate 80 Pulse Rate [Monitor] 100 Respiratory Rate 16 Blood Pressure 111/59 L Pulse Oximetry 97 Oxygen Delivery Method Room Air BMI result Body Mass Index 33.3 Const General: healthy appearing, comfortable, no acute distress, alert and awake Nutritional Appearance: well nourished Orientation/consciousness: patient oriented x3 HENMT Head: Yes normocephalic and Yes atraumatic Eyes Eyelids: Yes eyelids normal Conjunctivae: conjunctivae normal Sclerae: sclerae normal Corneas: corneas normal Pupils: Equal, round and reactive pupils present EOM: EOMs intact bilaterally Neck Neck: Yes full ROM Resp Effort & Inspection: normal respiratory effort, able to speak in complete sentences and not labored GI Other: Soft, obese abdomen. Diffusely tender without guarding. Inspection: No distended Palpation (GI): Soft to palpation, not firm, no guarding and not rigid Auscultation: normoactive bowel sounds Skin General skin exam: elasticity normal Neuro General: patient oriented x3 Cranial nerves: Yes Equal, round and reactive pupils present and Yes Bilaterally intact EOM present Cognition (Neuro): normal cognition Extrem Other: Moving all extremities well without any obvious deformities Course Course Course Narrative: RME performed by Shikha Swift PA-C. Patient is a 28 year old assigned female at presenting to the emergency department with nausea and vomiting. Detailed physical exam and review of systems are deferred to the telephone clerk telegraph office. Labs ordered. Patient placed back in the waiting room pending room availability and results. Reevaluation(s) Reevaluation #1: Patient currently sleeping, she has no longer vomiting at this time. Time: 17:32 Reevaluation #2: Patient has been re-evaluated several times and had no further vomiting, repeat potassium is 3.3. She will follow up with her PCP. Time: 22:04 Medications Administered Discontinued Medications Generic Name Dose Route Start Last Admin Trade Name Freq PRN Reason Stop Dose Admin Haloperidol Lactate 2.5 mg 06/19/23 16:12 06/19/23 16:24 Haloperidol Lactate 5 Mg/Ml Vial IVPUSH 06/19/23 16:13 2.5 mg STAT STA Administration Potassium Chloride/Sodium Chloride 40 meq in 1,000 mls @ 250 mls/hr 06/19/23 16:15 06/19/23 20:59 Kcl 40 Meq In 0.9 % Sodium Chl IV 06/19/23 20:14 Infused .Q4H KEREN Infusion Potassium Chloride 40 meq 06/19/23 18:43 06/19/23 19:08 Potassium Chloride Packet 20 Meq Packet PO 06/19/23 18:44 40 meq ONCE ONE Administration Medical Decision Making Medical Decision Making [facility] Narrative: 28-year-old female presents for evaluation of vomiting. She reports vomiting for over a week. Denies any medical history. She does endorse marijuana use. Cannabis hyperemesis is high on the differential. Her potassium was noted to be quite low at 2.6. Patient's hyperemesis was treated with Haldol 2.5 mg IV. She received IV potassium. She has no white count, her abdominal exam is rather reassuring. I do not see any indication for emergent imaging at this time. Differential Diagnosis Differential Diagnoses: The differential diagnosis associated with the presentation includes Cannabis hyperemesis syndrome Hypokalemia Metabolic acidosis Metabolic alkalosis Dehydration Vomiting Lab Data [facility] Lab Attestation statement: I reviewed the patient's lab results. No leukocytosis or anemia. Patient has a critical potassium of 2.6. Her CO2 is elevated to 31 likely related to metabolic alkalosis secondary to vomiting. Patient does have a mild transaminitis with AST of 63 and ALT of 134. She has had similar transaminitis in the past 06/19/23 14:32 06/19/23 21:00 Labs: Lab Results 06/19/23 06/19/23 06/19/23 Range/Units 14:32 19:39 21:00 WBC 9.3 (4.8-10.8) X10*3/uL RBC 4.97 (4.20-5.50) X10*6/uL Hgb 13.6 (12.0-16.0) g/dl Hct 39.3 (37.0-47.0) % MCV 79.1 L (80.0-98.0) fL MCH 27.4 (27.0-33.0) pg MCHC 34.6 (31.0-35.0) g/dl RDW 12.9 (11.0-16.0) % Plt Count 309 (160-400) X10*3/uL MPV 9.3 L (9.4-12.3) fL Immature Gran % (Auto) 0.3 (0.0-0.4) % Neut % (Auto) 90.1 H (45-73) % Lymph % (Auto) 7.1 L (20-40) % [place] % (Auto) 2.4 (2-11) % Eos % (Auto) 0.0 (0-4) % Baso % (Auto) 0.1 (0-2) % Lymph # (Auto) 0.7 L (1.2-4.9) X10*3/uL [place] # (Auto) 0.2 (0.1-1.2) X10*3/uL Eos # (Auto) 0.0 (0.0-0.4) X10*3/uL Baso # (Auto) 0.0 (0.0-0.2) X10*3/uL Abs Immat Gran (auto) 0.03 (0.00-0.03) X10*3/uL Absolute Neuts (auto) 8.4 H (2.0-8.3) x10*3/uL Absolute Nucleated RBC 0.000 (0.0-0.012) X10*3/uL Nucleated RBC % (auto) 0.0 (0.0-0.2) /100WBC Smear Tech's Comments VERIFIED Sodium 139 139 (135-145) mmol/L Potassium 2.6 L* 3.3 D (3.3-5.1) mmol/L Chloride 97 102 (96-108) mmol/L Carbon Dioxide 31 H 28 (22-29) mmol/L Anion Gap 14 12 (12-20) BUN 11 7 L (9-16) mg/dL Creatinine 0.62 0.59 (0.5-1.4) mg/dL Estim Creat Clear Calc 150.3 157.9 Estimated GFR > 60 > 60 Random Glucose 114 112 (60-115) mg/dL Calcium 9.2 8.6 D (8.4-10.2) mg/dL Magnesium 2.3 (1.6-2.6) mg/dL Total Bilirubin 1.0 (0.0-1.0) mg/dL AST 63 H (5-31) U/L ALT 134 H (0-31) U/L Alkaline Phosphatase 71 (39-117) U/L Total Protein 7.9 (6.5-8.0) g/dL Albumin 4.5 (3.5-5.0) g/dL Beta HCG, Quant < 2 mIU/mL Urine Color [place] A Urine Appearance Cloudy Urine pH >= 9.0 (5.0-9.0) Ur Specific [place] 1.020 (1.005-1.025) Urine Protein 30 (1+) H (Neg-Trace) mg/dL Urine Glucose (UA) Negative (Negative) mg/dL Urine Ketones 80 (Negative) mg/dL Urine Blood Large (3+) H (Negative) Urine Nitrite Negative (Negative) Ur Leukocyte Esterase Trace H (Negative) Urine RBC >20 H (0-2) /HPF Urine WBC 0-5 (0-5) /HPF Ur Squamous Epith Cells 0-2 (0-2) /HPF Urine Bacteria None Seen (None Seen) Hyaline Casts 0-2 (0-2) /LPF Discharge Plan Discharge Clinical Impression: Vomiting, Acute hypokalemia Patient Disposition: Home, Self-Care Instructions: Hypokalemia (ED), Acute Nausea and Vomiting (ED) Additional Instructions: I recommended he follow-up with GI for your persistent vomiting. I think it is likely related to your marijuana use previously Use Zofran as needed for nausea and vomiting Drink lots of fluids, small sips at a time to prevent vomiting I recommend you follow-up with your primary doctor to have repeat blood work next week to recheck your potassium Prescriptions: New ondansetron 4 mg tablet,disintegrating 4 mg PO Q8H PRN (Reason: nausea and vomiting) Qty: 20 0RF No Action ondansetron 4 mg tablet,disintegrating 4 mg PO Q8H PRN (Reason: nausea and vomiting) Qty: 10 0RF pantoprazole 40 mg tablet,delayed release (DR/EC) 40 mg PO DAILY Qty: 14 0RF dicyclomine 20 mg tablet 20 mg PO QID PRN (Reason: abdominal pain) Qty: 14 0RF omeprazole 20 mg capsule,delayed release(DR/EC) 20 mg PO DAILY Qty: 30 0RF hyoscyamine sulfate 0.125 mg tablet 0.125 mg PO QID Qty: 20 0RF alum-mag hydroxide-simeth [Maalox Advanced] 200-200-20 mg/5 mL suspension 5 ml PO 5XD PRN (Reason: dyspepsia) Qty: 30 0RF Rx Instructions: administer between meals and at bedtime ondansetron 4 mg tablet,disintegrating 4 mg PO Q8H PRN (Reason: nausea and vomiting) Qty: 10 0RF famotidine [Pepcid] 20 mg tablet 20 mg PO DAILY Qty: 14 0RF Referrals: Juana Arteaga MD [Physician] - (Persistent vomiting)
[2023-06-19 14:44] LABS: Basophils Percent Auto 0.1 % (0-2); Hematocrit 39.3 % (37.0-47.0); Hemoglobin 13.6 g/dl (12.0-16.0); Imm Gran Abs Auto 0.03 X10*3/uL (0.00-0.03); Imm Gran Pct Auto 0.3 % (0.0-0.4); Lymphocytes Absolute Auto 0.7 X10*3/uL (1.2-4.9); Lymphocytes Percent Auto 7.1 % (20-40); MANUAL DIFF FLAG SCAN; Mean Corpuscular HGB Conc 34.6 g/dl (31.0-35.0); Mean Corpuscular Hemoglobin 27.4 pg (27.0-33.0); Mean Corpuscular Volume 79.1 fL (80.0-98.0); Mean Platelet Volume 9.3 fL (9.4-12.3); Monocytes Absolute Auto 0.2 X10*3/uL (0.1-1.2); Monocytes Percent Auto 2.4 % (2-11); Neutrophils Absolute Auto 8.4 x10*3/uL (2.0-8.3); Neutrophils Percent Auto 90.1 % (45-73); Platelet Count 309 X10*3/uL (160-400); Red Blood Count 4.97 X10*6/uL (4.20-5.50); Red Cell Distribution Width 12.9 % (11.0-16.0); SCAN SMEAR FLAG 1; White Blood Count 9.3 X10*3/uL (4.8-10.8)
[2023-06-19 15:16] LABS: Alanine Aminotransferase 134 U/L (0-31); Albumin Level 4.5 g/dL (3.5-5.0); Alkaline Phosphatase 71 U/L (39-117); Anion Gap 14 (12-20); Aspartate Amino Transferase 63 U/L (5-31); Blood Urea Nitrogen 11 mg/dL (9-16); Calcium 9.2 mg/dL (8.4-10.2); Carbon Dioxide 31 mmol/L (22-29); Chloride 97 mmol/L (96-108); Creatinine Clr Calc Pharmacy 150.3; Estimated Glomerular Filt Rate > 60; Glucose Random 114 mg/dL (60-115); HCG Quantitative < 2 mIU/mL; Magnesium 2.3 mg/dL (1.6-2.6); Potassium 2.6 mmol/L (3.3-5.1); Sodium 139 mmol/L (135-145); Total Protein 7.9 g/dL (6.5-8.0)
[2023-06-19 15:29] LABS: SLIDE REVIEW VERIFIED
--- OUTSIDE RECORDS SUMMARY | 2023-06-19 15:57 | XMS_ITS | Continuity of Care Document ---
Author Name Unknown Organization 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 [address] [place], [place] [address] Attending Physician: Mckenna Thomas Admitting Physician: AdmMckenna [...] Refills, Maintenance, 02/28/22 12:04:00 EDT, Tablet, [id number], Partial fill upon patient request if the [...] 14:10:00 EDT, Aerosol, Route to Pharmacy Electronically, [id number], [facility] #[id number], 165, cm, 01/08/22 13:31:00... Start Date: 01/08/22 [...] 100 in lifetime) entered on: 10/08/21 Sex Radiology * Event Display: CT Scan Abdomen, Non- Authored Date: Patient Care team information Care Team Personnel Name: Kelise DAVIS, Vern Washington Position: [facility] Physician - Primary Care Member Role: PCP Address: Address: [address] [place] [address]- Care Team Related Persons Name: KLARISSA SALINAS Address: [address] Address: home [address] [address] Name: USHA DE LA CRUZ Address: [place] [address] Name: CHANI SEXTON Address: home [address] [place] [address]
--- OUTSIDE RECORDS SUMMARY | 2023-06-19 15:57 | XMS_ITS | Continuity of Care Document ---
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 Name Role Phone Kelsie DAVIS, Vern Washington Primary Care Physician [facility]counter [facility] Date(s): 03/25/23 - 03/26/[address] [address]- Encounter Diagnosis Abdominal pain(Final) - 03/26/23 Discharge Disposition: A-D/C Home Attending Physician: Erum Abernathy DO Admitting Physician: Erum Abernathy DO Referring Physician: Not on Staff, Referring MD [...] Measles/Mumps/Rubella Virus Vaccine 09/28/96 Recor ded Medications Acetaminophen Tablet 650 mg, Tablet, By Mouth, Once, STAT, 03/25/23 21:52:00 EST, Stop date 03/25/23 21:52:00 EST Start Date: 03/25/23 Stop Date: 03/25/23 Status: Completed Apri 0.15 mg-0.03 mg oral tablet 1 tablet, By Mouth, Daily, # 28 tablet, 1 Refills, Maintenance, 02/28/22 12:04:00 EDT, Tablet, [facility] #[id number], Partial fill upon patient request if the prescription is for a schedule II opioid drug., 1 tablet By Mouth Daily, 165, cm, 02/28/22 11:4... Start Date: 02/28/22 Status: Ordered capsaicin 0.1% topical cream 1 application, Topically, 3 times a day, for 14 days, # 42.5 Gm, 0 Refills, Acute 04/08/23 16:59:00EST, 03/25/23 16:59:00 EST, Cream, [facility] #[id number], Partial fill upon patient request if the prescription is for a schedule II opioid drug.... Start Date: 03/25/23 Stop Date: 04/08/23 Status: Ordered famotidine 20 mg oral tablet 20 mg, 1, tablet, By Mouth, Daily, # 30 tablet, Refills 0, Tot. Refills 0, Maintenance, 12/22/22 16:03:00 EDT, Route to Pharmacy Electronically, [facility] #[id number], Partial fill upon patientrequest if the prescription is for a schedule II op... Start Date: 12/22/22 Status: Ordered metronidazole topical 0.75% gel with applicator See Instructions, 1 full applicator (5g) vaginally at bedtime for 5 days, # 70 Gm, 0 Refills, Maintenance, 12/24/22 11:21:00 EDT, Gel, [facility] #[id number], Partial fill upon patient request if the prescription is for a schedule II opioid drug.... Start Date: 12/24/22 Status: Ordered Motrin Tablet 400 mg, Tablet, By Mouth, Once, STAT, 03/25/23 21:52:00 EST, Stop date 03/25/23 21:52:00 EST Start Date: 03/25/23 Stop Date: 03/25/23 Status: Completed Nexplanon 68 mg subcutaneous implant 1 each = 68 mg, Subcutaneous Infusion, Once, 0 Refills, Maintenance, 10/20/18 12:46:42 EDT Start Date: 10/20/18 Status: Ordered ondansetron 4 mg oral tablet 1 tablet = 4 mg, By Mouth, Every 8 hours, PRN Nausea & Vomiting, # 20 tablet, 0 Refills, Maintenance, 03/17/23 9:08:00 EDT, Tablet, [facility] #[id number], Partial fill upon patient request if the prescription is for a schedule II opioid drug., 1... Start Date: 03/17/23 Status: Ordered pantoprazole 40 mg oral delayed release tablet 1 tablet = 40 mg, By Mouth, Daily, # 30 tablet, 0 Refills, Maintenance, 03/17/23 9:08:00 EDT, EC Tablet, 165, cm, 12/22/22 15:44:00 EDT, Height, 105, kg, 10/08/22 17:28:00 EDT, Dry Weight Start Date: 03/17/23 Status: Ordered Paxlovid 150 mg-100 mg oral tablet See Instructions, 300mg nirmatrelvir (two 150mg tablets) with 100mg ritonavir (one tablet). All three tablets taken together twice daily for 5 days, with or without food, # 30 each, 0 Refills, Maintenance, 01/08/22 14:46:00 EDT, [facility] #... Start Date: 01/08/22 Status: Ordered ProAir HFA 90 mcg/inh inhalation aerosol with adapter 1, puffs, Inhalation, Every 4 hours, PRN, # 8.5 Gm, Refills 0, Tot. Refills 0, Maintenance, 01/08/22 14:10:00 EDT, Aerosol, Route to Pharmacy Electronically, [id number], [facility] #[id number], 165, cm, 01/08/22 13:31:00... Start Date: 01/08/22 Status: Ordered Problem List Condition Confirmation Course Effective Dates Status Health St atus Informant Anemia Confirmed Active Asthma Confirmed Active Depression Confirmed Active Marijuana use Confirmed Active Obesity NOS Confirmed Active ALEJANDRA (obstructive sleep apnea) Confirmed Active Well woman exam Confirmed Active Severe obesity (BMI 35.0-39.9) with comorbidity Confirmed Active Results Radiology Reports * Exam Date Time Procedure Performing Provider Status 03/25/23 11:[address] Abd/Pelvis W/ IV + Oral Contrast Sherie Lynn; Auth (Verified) Notes: (CT Abd/Pelvis W/ IV + Oral Contrast) Reason For Exam: RLQ abdominal pain;Other: RESULT: CT Abd/Pelvis W/ IV + Oral Contrast CT Abd/Pelvis W/ IV + Oral Contrast Hx of Present Illness: Patient with all over abdominal pain for several days. States that she hada bowel movement yesterday but other than that has not had a bowel movement in awhile . [facility] and told she had a bowel obstruction. N V.; Reason: Other:; RLQ abdominal pain; Clinical Question(s): Abscess; Order Comment: TECHNIQUE: Spiral CT through the abdomen and pelvis with IV contrast formatted in 3 planes. 100 cc of Omnipaque 300 was administered intravenously. This study was performed with oral contrast. Weight-based protocol using automatic tube modulation was used to optimize exposure parameters. CTDIvol Body: 20.50 mGy, DLP Body: 1103 mGy*cm. COMPARISON: 03/27/2016. FINDINGS: Virtual Assistant For Advertisers View Findings, Lines and Tubes: None. Visualized Chest: Lung bases are clear. No pleural effusion. The heart is normal in size. No pericardial effusion. Diaphragm: Normal. Liver: Ill-defined hypodensity adjacent to the falciform ligament is likely focal fatty infiltration. No suspicious focal lesions. Gallbladder: No CT evidence of gallbladder pathology. Bile ducts: No biliary ductal dilation. Spleen: Normal. Pancreas: Normal. Adrenal glands: Normal. Kidneys and ureters: No hydronephrosis, stones, or suspicious masses. Bladder: Normal. Reproductive organs: 2.7 cm left ovarian dominant follicle, normal finding for patient's age. Otherwise unremarkable. Stomach, small bowel, and large bowel: Oral contrast reaches the distal descending colon without evidence of obstruction. Stomach and small bowel are unremarkable. Appendix: Normal. Peritoneum and retroperitoneum: No ascites or pneumoperitoneum. No omental or mesenteric lesions. Lymph nodes: No enlarged lymph nodes. Blood vessels: Normal. No aneurysm. No evidence of venous thrombosis. Abdominal and pelvic wall: Unremarkable. Bones: No acute abnormality. IMPRESSION: No acute intra-abdominal pathology. No evidence for bowel obstruction. Normal appendix. I have personally reviewed the images and I agree with this report. WSN: [id number] Ordering Physician: Chantel Gilbert Dictated By: Tian Evans MD Dictated Date/Time: 03/26/23 0:05 am Reviewed By: Fredrick Kramer MD Signed By: Fredrick Kramer MD Signed Date/Time: 03/26/23 0:10 am Transcribed By: TELMA Transcribed Date/Time: 03/25/23 11:58 pm Vital Signs Most recent to oldest [Reference Range]: 1 2 3 Oxygen Saturation [94-100 %] 98 % (03/25/23 11:50 PM) 100 % (03/25/23 9:10 PM) 99 % (03/25/23 5:50 PM) Pulse Rate [55-90 bpm] 70 bpm (03/25/23 11:50 PM) 67 bpm (03/25/23 9:10 PM) 62 bpm (03/25/23 5:50 PM) Blood Pressure [90-138/55-84 mm Hg] 129/70mm Hg (03/25/23 11:50 PM) 115/70mm Hg (03/25/23 9:10 PM) 130/82mm Hg (03/25/23 5:50 PM) Respiratory Rate [16-30 br/min] 18 br/min (03/25/23 11:50 PM) 20 br/min (03/25/23 11:17 PM) 18 br/min (03/25/23 11:17 PM) Temperature [96.8-100.4 DegF] 98.6 DegF (03/25/23 9:10 PM) 98.3 DegF (03/25/23 5:50 PM) Mode of Delivery (Oxygen) Room air (03/25/23 11:50 PM) Room air (03/25/23 9:10 PM) Room air (03/25/23 5:50 PM) Blood pressure sites Arm, right (03/25/23 11:50 PM) Arm, right (03/25/23 9:10 PM) Arm, right (03/25/23 5:50 PM) Temperature Route Oral (03/25/23 9:10 PM) Oral (03/25/23 5:50 PM) Social History Social History Type Response Smoking Status Never (less than 100 in lifetime) entered on: 10/08/21 Sex Note * Debo River MD: PERFORM Event Display: Patient Education Leaflets Authored Date: [id number] Diet for Vomiting or Diarrhea (Adult) ?? [id number] Diet for Vomiting or Diarrhea (Adult) Your symptoms may return or get worse after eating certain foods listed below. If this happens, stop eating these foods until your symptoms ease and you feel better. Once the vomiting stops, follow the steps below.?? During the first 12 to 24 hours During the first 12 to 24 hours, follow this diet: ??? Drinks.??Have plain water, sports drinks (like electrolyte solutions), drinks without caffeine, mineral water (plain or flavored), and clear fruit juices. Don't have drinks with caffeine or citrus juices. This is because they are high in acid and can irritate your stomach. ??? Soups. Have clear broth. ??? Desserts. Have plain gelatin, frozen ice pops, and fruit juice bars without pieces of fruit. As you feel better, you may add 6??to 8 ounces of yogurt per day. If you have diarrhea, don't have??foods or drinks with sugar, high-fructose corn syrup, or sugar alcohols. ?? During the next 24 hours During the next 24 hours, you may add these to the above: ??? Hot cereal, plain toast, bread, rolls, and crackers ??? Plain noodles, rice, mashed potatoes, and chicken noodle or rice soup ??? Unsweetened canned fruit (not pineapple) and bananas Don't eat more than??15 grams of fat a day. Do this by staying away from margarine, butter, oils, mayonnaise, sauces, gravies, fried foods, peanut butter, meat, poultry, and fish. Don't eat much fiber. Stay away from??raw or cooked vegetables, fresh fruits (except bananas), and bran cereals. Limit how much??caffeine and chocolate you have. Don't use any??spices or seasonings except salt. ?? During the next 24 hours Slowly go back to your normal diet, as you feel better and your symptoms ease. ?? Last Reviewed Date: 2021 ?? [id number] [employer]. All rights reserved. This information is not intended as a substitute for professional medical care. Always follow your healthcare professional's instructions. ?? Patient Care team information Care Team Personnel Name: Kelsie DAVSI, Vern Washington Position: [facility] Physician - Primary Care Member Role: PCP Address: Address: [address] [place] [address] [place] [address]- Name: Emani Delaney RN Position: [facility] ED RN W/OE and Tasks Member Role: Patient Care Provider Name: Angie Blackwell Position: [facility] ED TA [facility] Member Role: Diplomatic Interpreter Name: Erum Abernathy DO Position: [facility] ED Medicine MD Member Role: ED Attending Physician Address: Address: [address] [place] [address]- Name: Debo River MD Position: [facility] Resident Member Role: ED Resident Address: Address: [address] [place] [address] [place] [address]- Care Team Related Persons Name: KLARISSA SALINAS Address: [id number] Address: home [address] [address] Name: USHA DE LA CRUZ Address: [place] [address] Name: CHANI SEXTON Address: home [address] [place] [address]
--- OUTSIDE RECORDS SUMMARY | 2023-06-19 15:57 | XMS_ITS | Continuity of Care Document ---
Author Name Unknown Organization [facility] Address [address] [place] [address]- Care Team Providers Care Media Specialist Name Role Phone Kelsie DAVIS, Vern Washington Primary Care Physician Encounter [facility] Date(s): 01/17/23 - 04/09/23 [facility] [address] [place] [id number] Attending Physician: Vern Iglesias MD Admitting Physician: [...] Refills, Maintenance, 02/28/22 12:04:00 EDT, Tablet, [id number], Partial fill upon patient request if the prescription is for a schedule II opioid drug., 1 tablet By Mouth Daily, 165, cm, 02/28/22 11:4... Start Date: 02/28/22 Status: Ordered famotidine 20 mg oral tablet 20 mg, 1, tablet, By Mouth, Daily, # 30 tablet, Refills 0, Tot. Refills 0, Maintenance, 12/22/22 16:03:00 EDT, Route to Pharmacy Electronically, [facility] #[id number], Partial fill upon patientrequest if the prescription is for a schedule II op... Start Date: 12/22/22 Status: Ordered metronidazole topical 0.75% gel with applicator See Instructions, 1 full applicator (5g) vaginally at bedtime for 5 days, # 70 Gm, 0 Refills, Maintenance, 12/24/22 11:21:00 EDT, Gel, [facility] #[id number], Partial fill upon patient request if the [...] 0 Refills, Maintenance, 03/17/23 9:08:00 EDT, Tablet, [facility] #[id number], Partial fill upon patient request if the [...] each, 0 Refills, Maintenance, 01/08/22 14:46:00 EDT, [facility] #... Start Date: 01/08/22 Status: Ordered ProAir HFA 90 mcg/inh inhalation aerosol with adapter 1, puffs, Inhalation, Every 4 hours, PRN, # 8.5 Gm, Refills 0, Tot. Refills 0, Maintenance, 01/08/22 14:10:00 EDT, Aerosol, Route to Pharmacy Electronically, [id number], [facility] #[id number], 165, cm, 01/08/22 13:31:00... Start Date: 01/08/22 [...] Personnel Name: Kelsie DAVIS, Vern Washington Position: [facility] Physician - Primary Care Member Role: PCP Address: Address: [address] [facility] [place] [address]- Care Team Related Persons Name: KLARISSA SALINAS Address: [address] Address: home [address] [address] Name: USHA DE LA CRUZ Address: [place] [address] Name: CHANI SEXTON Address: home [address] [place] [address]
--- OUTSIDE RECORDS SUMMARY | 2023-06-19 15:57 | XMS_ITS | Continuity of Care Document ---
Author Name Unknown Organization [facility] Address [address] [place] [address]- Care Team Providers Care Hemmer Lockstitch Name Role Phone Kelsie DAVIS, Vern Washington Primary Care Physician [facility] Date(s): 03/26/23 - 05/21/23 [facility] [address] [place], [place] [address] Attending Physician: Vern Iglesias MD Admitting [...] Refills, Maintenance, 02/28/22 12:04:00 EDT, Tablet, [id number], Partial fill upon patient request if the [...] 14:10:00 EDT, Aerosol, Route to Pharmacy Electronically, [id number], [facility] #[id number], 165, cm, 01/08/22 13:31:00... Start Date: 01/08/22 [...] Care Team Personnel Name: Kelsie DAVIS, Vern Wahsington Position: S Physician - Primary Care Member Role: PCP Address: Address: [address] [facility] [place] [address]- Care Team Related Persons Name: KLARISSA SALINAS Address: [address] Address: home [address] [address] Name: USHA DE LA CRUZ Address: [place] [address] Name: CHANI SEXTON Address: home [address] [place] [address]
--- OUTSIDE RECORDS SUMMARY | 2023-06-19 15:57 | XMS_ITS | Continuity of Care Document ---
Author Name Unknown Organization [facility] Address [address] [place] [address]- Care Team Providers Care Assistant Wrestling Coach Name Role Phone Kelsie DAVIS, Vern Washington Primary Care Physician [facility] Date(s): 03/19/23 - 04/18/23 [facility] [address] [place] [id number] Allergies, Adverse Reactions, Alerts No Known Allergies [...] Refills, Maintenance, 02/28/22 12:04:00 EDT, Tablet, [id number], Partial fill upon patient request if the prescription is for a schedule II opioid drug., 1 tablet By Mouth Daily, 165, cm, 02/28/22 11:4... Start Date: 02/28/22 Status: Ordered famotidine 20 mg oral tablet 20 mg, 1, tablet, By Mouth, Daily, # 30 tablet, Refills 0, Tot. Refills 0, Maintenance, 12/22/22 16:03:00 EDT, Route to Pharmacy Electronically, [facility] #[id number], Partial fill upon patientrequest if the prescription is for a schedule II op... Start Date: 12/22/22 Status: Ordered metronidazole topical 0.75% gel with applicator See Instructions, 1 full applicator (5g) vaginally at bedtime for 5 days, # 70 Gm, 0 Refills, Maintenance, 12/24/22 11:21:00 EDT, Gel, [facility] #[id number], Partial fill upon patient request if the [...] 0 Refills, Maintenance, 03/17/23 9:08:00 EDT, Tablet, [facility] #[id number], Partial fill upon patient request if the [...] each, 0 Refills, Maintenance, 01/08/22 14:46:00 EDT, [facility] #... Start Date: 01/08/22 Status: Ordered ProAir HFA 90 mcg/inh inhalation aerosol with adapter 1, puffs, Inhalation, Every 4 hours, PRN, # 8.5 Gm, Refills 0, Tot. Refills 0, Maintenance, 01/08/22 14:10:00 EDT, Aerosol, Route to Pharmacy Electronically, [id number], [facility] #[id number], 165, cm, 01/08/22 13:31:00... Start Date: 01/08/22 [...] Personnel Name: Kelsie DAVIS, Vern Washington Position: [facility] Physician - Primary Care Member Role: PCP Address: Address: [address] [facility] [place] [address]- Care Team Related Persons Name: KLARISSA SALINAS Address: [id number] Address: home [address] [address] Name: USHA DE LA CRUZ Address: [place] [address] Name: CHANI SEXTON Address: home [address] [place] [address]
--- OUTSIDE RECORDS SUMMARY | 2023-06-19 15:57 | XMS_ITS | Continuity of Care Document ---
Author Name Unknown Organization [facility] Address [address] [place] [address]- Care Team Providers Care Veneer Jointer Returner Name Role Phone Kelsie DAVIS, Vern Washington Primary Care Physician [facility] Date(s): 03/25/23 - 04/24/23 [facility] [address] [place] [id number] Allergies, Adverse Reactions, Alerts No Known Allergies [...] Refills, Maintenance, 02/28/22 12:04:00 EDT, Tablet, [id number], Partial fill upon patient request if the [...] 14:10:00 EDT, Aerosol, Route to Pharmacy Electronically, [id number], [facility] #[id number], 165, cm, 01/08/22 13:31:00... Start Date: 01/08/22 [...] Personnel Name: Kelsie DAVIS, Vern Washington Position: [facility] Physician - Primary Care Member Role: PCP Address: Address: [address] [facility] [place] [address]- Care Team Related Persons Name: KLARISSA SALINAS Address: [address] Address: home [address] [address] Name: USHA DE LA CRUZ Address: [place] [address] Name: CHANI SEXTON Address: home [address] [place] [address]
--- OUTSIDE RECORDS SUMMARY | 2023-06-19 15:58 | XMS_ITS | Continuity of Care Document ---
Author Name Unknown Organization [facility] Address [address] [place] [address]- Care Team Providers Care Flight Test Engineer Name Role Phone Kelsie DAVIS, Vern Washington Primary Care Physician [facility] Date(s): 03/16/23 - 04/15/23 [facility] [address] [place] [id number] Allergies, Adverse Reactions, Alerts [...] Refills, Maintenance, 02/28/22 12:04:00 EDT, Tablet, [id number], Partial fill upon patient request if the prescription is for a schedule II opioid drug., 1 tablet By Mouth Daily, 165, cm, 02/28/22 11:4... Start Date: 02/28/22 Status: Ordered famotidine 20 mg oral tablet 20 mg, 1, tablet, By Mouth, Daily, # 30 tablet, Refills 0, Tot. Refills 0, Maintenance, 12/22/22 16:03:00 EDT, Route to Pharmacy Electronically, [facility] #[id number], Partial fill upon patientrequest if the prescription is for a schedule II op... Start Date: 12/22/22 Status: Ordered metronidazole topical 0.75% gel with applicator See Instructions, 1 full applicator (5g) vaginally at bedtime for 5 days, # 70 Gm, 0 Refills, Maintenance, 12/24/22 11:21:00 EDT, Gel, [facility] #[id number], Partial fill upon patient request if the [...] 0 Refills, Maintenance, 03/17/23 9:08:00 EDT, Tablet, [facility] #[id number], Partial fill upon patient request if the [...] each, 0 Refills, Maintenance, 01/08/22 14:46:00 EDT, [facility] #... Start Date: 01/08/22 Status: Ordered ProAir HFA 90 mcg/inh inhalation aerosol with adapter 1, puffs, Inhalation, Every 4 hours, PRN, # 8.5 Gm, Refills 0, Tot. Refills 0, Maintenance, 01/08/22 14:10:00 EDT, Aerosol, Route to Pharmacy Electronically, [id number], [facility] #[id number], 165, cm, 01/08/22 13:31:00... Start Date: 01/08/22 [...] Personnel Name: Kelsie DAVIS, Vern Washington Position: [facility] Physician - Primary Care Member Role: PCP Address: Address: [address] [facility] [place] [address]- Care Team Related Persons Name: KLARISSA SALINAS Address: [address] Address: home [address] [address] Name: USHA DE LA CRUZ Address: [place] [address] Name: CHANI SEXTON Address: home [address] [place] [address]
--- OUTSIDE RECORDS SUMMARY | 2023-06-19 15:58 | XMS_ITS | Continuity of Care Document ---
Author Name Unknown Organization [facility] Address [address] [place] [address]- Care Team Providers Care Senior Software Systems Engineer Name Role Phone Kelsie DAVIS, Vern Washington Primary Care Physician Encounter [facility] Date(s): 03/16/23 - 04/15/23 [facility] [address] [place] [id number] Attending Physician: Hossein Hardin MD Admitting Physician: Hossein Hardin MD Allergies, Adverse Reactions, Alerts No Known [...] Refills, Maintenance, 02/28/22 12:04:00 EDT, Tablet, [id number], Partial fill upon patient request if the prescription is for a schedule II opioid drug., 1 tablet By Mouth Daily, 165, cm, 02/28/22 11:4... Start Date: 02/28/22 Status: Ordered famotidine 20 mg oral tablet 20 mg, 1, tablet, By Mouth, Daily, # 30 tablet, Refills 0, Tot. Refills 0, Maintenance, 12/22/22 16:03:00 EDT, Route to Pharmacy Electronically, [facility] #[id number], Partial fill upon patientrequest if the prescription is for a schedule II op... Start Date: 12/22/22 Status: Ordered metronidazole topical 0.75% gel with applicator See Instructions, 1 full applicator (5g) vaginally at bedtime for 5 days, # 70 Gm, 0 Refills, Maintenance, 12/24/22 11:21:00 EDT, Gel, [facility] #[id number], Partial fill upon patient request if the [...] 0 Refills, Maintenance, 03/17/23 9:08:00 EDT, Tablet, [facility] #[id number], Partial fill upon patient request if the [...] each, 0 Refills, Maintenance, 01/08/22 14:46:00 EDT, [facility] #... Start Date: 01/08/22 Status: Ordered ProAir HFA 90 mcg/inh inhalation aerosol with adapter 1, puffs, Inhalation, Every 4 hours, PRN, # 8.5 Gm, Refills 0, Tot. Refills 0, Maintenance, 01/08/22 14:10:00 EDT, Aerosol, Route to Pharmacy Electronically, [id number], [facility][id number], 165, cm, 01/08/22 13:31:00... Start Date: 01/08/22 [...] Personnel Name: Kelsie DAVIS, Vern Washington Position: [facility] Physician - Primary Care Member Role: PCP Address: Address: [address] [facility] [place] [address]- Care Team Related Persons Name: KLARISSA SALINAS Address: [address] Address: home [address] [address] Name: USHA DE LA CRUZ Address: [place] [address] Name: CHANI SEXTON Address: home [address] [place] [address]
--- OUTSIDE RECORDS SUMMARY | 2023-06-19 15:58 | XMS_ITS | Continuity of Care Document ---
Author Name Unknown Organization [facility] Address [address] [place] [id number]- Care Team Providers Care Space And Missile Operations Spacelift Name Role Phone Kelsie DAVIS, Vern Washington Primary Care Physician [facility]23 - 04/15/[address] [id number] Allergies, Adverse Reactions, Alerts No Known [...] Refills, Maintenance, 02/28/22 12:04:00 EDT, Tablet, [id number], Partial fill upon patient request if the prescription is for a schedule II opioid drug., 1 tablet By Mouth Daily, 165, cm, 02/28/22 11:4... Start Date: 02/28/22 Status: Ordered famotidine 20 mg oral tablet 20 mg, 1, tablet, By Mouth, Daily, # 30 tablet, Refills 0, Tot. Refills 0, Maintenance, 12/22/22 16:03:00 EDT, Route to Pharmacy Electronically, [facility][id number], Partial fill upon patientrequest if the prescription is for a schedule II op... Start Date: 12/22/22 Status: Ordered metronidazole topical 0.75% gel with applicator See Instructions, 1 full applicator (5g) vaginally at bedtime for 5 days, # 70 Gm, 0 Refills, Maintenance, 12/24/22 11:21:00 EDT, Gel, [facility] #[id number], Partial fill upon patient request if the [...] 0 Refills, Maintenance, 03/17/23 9:08:00 EDT, Tablet, [facility] #[id number], Partial fill upon patient request if the [...] each, 0 Refills, Maintenance, 01/08/22 14:46:00 EDT, [facility] #... Start Date: 01/08/22 Status: Ordered ProAir HFA 90 mcg/inh inhalation aerosol with adapter 1, puffs, Inhalation, Every 4 hours, PRN, # 8.5 Gm, Refills 0, Tot. Refills 0, Maintenance, 01/08/22 14:10:00 EDT, Aerosol, Route to Pharmacy Electronically, [id number], [facility] #[id number], 165, cm, 01/08/22 13:31:00... Start Date: 01/08/22 [...] Personnel Name: Kelsie DAVIS, Vern Washington Position: [facility] Physician - Primary Care Member Role: PCP Address: Address: [address] [place] [address]- Care Team Related Persons Name: KLARISSA SALINAS Address: [address] Address: home [address] [address] Name: USHA DE LA CRUZ Address: [place] [address] Name: CHANI SEXTON Address: home [address] [place] [address]
--- OUTSIDE RECORDS SUMMARY | 2023-06-19 15:58 | XMS_ITS | Continuity of Care Document ---
Author Name Unknown Organization [facility] Address [address] [place] [address]- Care Team Providers Care Dealer Compliance Representative Name Role Phone Kelsie DAVIS, Vern Washington Primary Care Physician [facility]/23 - 04/18/23 [facility] [address] [place] [id number] Allergies, Adverse Reactions, Alerts [...] Refills, Maintenance, 02/28/22 12:04:00 EDT, Tablet, [id number], Partial fill upon patient request if the prescription is for a schedule II opioid drug., 1 tablet By Mouth Daily, 165, cm, 02/28/22 11:4... Start Date: 02/28/22 Status: Ordered famotidine 20 mg oral tablet 20 mg, 1, tablet, By Mouth, Daily, # 30 tablet, Refills 0, Tot. Refills 0, Maintenance, 12/22/22 16:03:00 EDT, Route to Pharmacy Electronically, [facility] #[id number], Partial fill upon patientrequest if the prescription is for a schedule II op... Start Date: 12/22/22 Status: Ordered metronidazole topical 0.75% gel with applicator See Instructions, 1 full applicator (5g) vaginally at bedtime for 5 days, # 70 Gm, 0 Refills, Maintenance, 12/24/22 11:21:00 EDT, Gel, [facility] #[id number], Partial fill upon patient request if the [...] 0 Refills, Maintenance, 03/17/23 9:08:00 EDT, Tablet, [facility] #[id number], Partial fill upon patient request if the [...] each, 0 Refills, Maintenance, 01/08/22 14:46:00 EDT, [facility] #... Start Date: 01/08/22 Status: Ordered ProAir HFA 90 mcg/inh inhalation aerosol with adapter 1, puffs, Inhalation, Every 4 hours, PRN, # 8.5 Gm, Refills 0, Tot. Refills 0, Maintenance, 01/08/22 14:10:00 EDT, Aerosol, Route to Pharmacy Electronically, [id number], [facility] #[id number], 165, cm, 01/08/22 13:31:00... Start Date: 01/08/22 [...] Personnel Name: Kelsie DAVIS, Vern Washington Position: [facility] Physician - Primary Care Member Role: PCP Address: Address: [address] [facility] [place] [address]- Care Team Related Persons Name: KLARISSA SALINAS Address: [address] Address: home [address] [address] Name: USHA DE LA CRUZ Address: [place] [address] Name: CHANI SEXTON Address: home [address] [place] [address]
--- OUTSIDE RECORDS SUMMARY | 2023-06-19 15:58 | XMS_ITS | Continuity of Care Document ---
Author Name Unknown Organization [facility] Address [address] [place] [address]- Care Team Providers Care Ammunition Components Inspector Name Role Phone Kelsie DAVIS, Vern Washington Primary Care Physician [facility]): 03/18/23 - 04/17/23 [facility] [address] [place] [id number] Allergies, Adverse Reactions, Alerts No Known [...] Refills, Maintenance, 02/28/22 12:04:00 EDT, Tablet, [id number], Partial fill upon patient request if the prescription is for a schedule II opioid drug., 1 tablet By Mouth Daily, 165, cm, 02/28/22 11:4... Start Date: 02/28/22 Status: Ordered famotidine 20 mg oral tablet 20 mg, 1, tablet, By Mouth, Daily, # 30 tablet, Refills 0, Tot. Refills 0, Maintenance, 12/22/22 16:03:00 EDT, Route to Pharmacy Electronically, [facility] #[id number], Partial fill upon patientrequest if the prescription is for a schedule II op... Start Date: 12/22/22 Status: Ordered metronidazole topical 0.75% gel with applicator See Instructions, 1 full applicator (5g) vaginally at bedtime for 5 days, # 70 Gm, 0 Refills, Maintenance, 12/24/22 11:21:00 EDT, Gel, [facility] #[id number], Partial fill upon patient request if the [...] 0 Refills, Maintenance, 03/17/23 9:08:00 EDT, Tablet, [facility] #[id number], Partial fill upon patient request if the [...] each, 0 Refills, Maintenance, 01/08/22 14:46:00 EDT, [facility] #... Start Date: 01/08/22 Status: Ordered ProAir HFA 90 mcg/inh inhalation aerosol with adapter 1, puffs, Inhalation, Every 4 hours, PRN, # 8.5 Gm, Refills 0, Tot. Refills 0, Maintenance, 01/08/22 14:10:00 EDT, Aerosol, Route to Pharmacy Electronically, [id number], [facility] #[id number], 165, cm, 01/08/22 13:31:00... Start Date: 01/08/22 [...] Personnel Name: Kelsie DAVIS, Vern Washington Position: [facility] Physician - Primary Care Member Role: PCP Address: Address: [address] [facility] [place] [address]- Care Team Related Persons Name: KLARISSA SALINAS Address: [address] Address: [address] [address] Name: USHA DE LA CRUZ Address: [place] [address] Name: CHANI SEXTON Address: home [address] [place] [address]
--- OUTSIDE RECORDS SUMMARY | 2023-06-19 15:58 | XMS_ITS | Continuity of Care Document ---
Author Name Unknown Organization [facility] Address [address] [place] [address]- Care Team Providers Care Commercial Credit Specialist Name Role Phone Kelsie DAVIS, Vern Washington Primary Care Physician [facility]): 03[facility]23 - 04/22/23 [facility] [address] [place] [id number] Allergies, Adverse Reactions, Alerts No [...] Refills, Maintenance, 02/28/22 12:04:00 EDT, Tablet, [id number], Partial fill upon patient request if the [...] 14:10:00 EDT, Aerosol, Route to Pharmacy Electronically, [id number], [facility] #[id number], 165, cm, 01/08/22 13:31:00... Start Date: 01/08/22 [...] Personnel Name: Kelsie DAVIS, Vern Washington Position: [facility] Physician - Primary Care Member Role: PCP Address: Address: [address] [facility] [place] [address]- Care Team Related Persons Name: KLARISSA SALINAS Address: [address] Address: [address] [address] Name: USHA DE LA CRUZ Address: [place] [address] Name: CHANI SEXTON Address: home [address] [place] [address]
[2023-06-19 16:01] VITALS: BP 146/99; PULSE 70; RESP 22; TEMP 36.6; O2SAT 99
--- NOTE | 2023-06-19 16:13 | ECG_ITS ---
Test Reason : CHEST PAIN Blood Pressure : / mmHG Vent. Rate : 087 BPM Atrial Rate : 087 BPM P-R Int : 134 ms QRS Dur : 088 ms QT Int : 404 ms P-R-T Axes : 040 049 022 degrees QTc Int : 486 ms Normal sinus rhythm Nonspecific ST abnormality Prolonged QT Abnormal ECG No previous ECGs available Referred By: Eric Latham Electronically Signed By:EMA GARCIA MD
[2023-06-19] MEDS: Haloperidol Lactate 5 MG/ML VIAL 2.5 MG IVPUSH (16:24)
[2023-06-19] MEDS: KCl 40 mEq in 0.9 % Sodium Chl 40 MEQ/1,000 ML IV.SOLN 250 MEQ IV (16:32)
[2023-06-19 19:04] VITALS: BP 106/68; PULSE 98; RESP 12; TEMP 37.2; O2SAT 99
[2023-06-19] MEDS: Potassium Chloride Packet 20 MEQ PACKET 40 MEQ PO (19:08)
[2023-06-19 19:24] VITALS: PULSE 100
[2023-06-19 19:56] LABS: Appearance Urine Cloudy; Color Urine Orange; Glucose Urine UA Negative (Negative); Leukocyte Esterase Urine Trace (Negative); Nitrite Urine Negative (Negative); PH >= 9.0 (5.0-9.0); UMIC TRIGGER UACC YES; Urine Blood Large (3+) (Negative); Urine Ketones 80 mg/dL (Negative); Urine Protein 30 (1+) mg/dL (Neg-Trace)
[2023-06-19 19:57] LABS: Bacteria Urine None Seen (None Seen); Hyaline Casts Urine 0-2 /LPF (0-2); RBC Urine >20 /HPF (0-2); Squamous Epithelial Cell Urine 0-2 /HPF (0-2); WBC Urine 0-5 /HPF (0-5)
[2023-06-19 20:57] VITALS: BP 111/59; PULSE 80; RESP 16; TEMP 36.8; O2SAT 97
[2023-06-19 21:18] LABS: Anion Gap 12 (12-20); Blood Urea Nitrogen 7 mg/dL (9-16); Calcium 8.6 mg/dL (8.4-10.2); Carbon Dioxide 28 mmol/L (22-29); Chloride 102 mmol/L (96-108); Creatinine Clr Calc Pharmacy 157.9; Estimated Glomerular Filt Rate > 60; Glucose Random 112 mg/dL (60-115); Potassium 3.3 mmol/L (3.3-5.1); Sodium 139 mmol/L (135-145)
== END 2023-06-19 22:20 | disposition home or self-care (01) ==
PROVIDERS: Physician Assistant; Physician Assistant Medical; Emergency Provider Emergency Medicine Emergency Medical Services
DX: R07.89 Other chest pain (principal); R11.2 Nausea with vomiting, unspecified; E87.6 Hypokalemia; Z79.899 Other long term (current) drug therapy
CPT/HCPCS: 36415; 80048; 80053; 81001; 83735; 84702; 85025; 93005; 96365; 96366; 96375; 99285; J1630; J3480

== ENCOUNTER → 2023-06-19 16:13 | Outpatient (BNV) | payer OTHER, SELFPAY | PROVIDERS: Emergency Provider Emergency Medicine Emergency Medical Services; Visit Provider Internal Medicine Cardiovascular Disease | DX: I45.81 Long QT syndrome (principal) | CPT/HCPCS: 93010 ==

== ENCOUNTER 2023-10-14 14:37 | Emergency (ER) | payer OTHER, SELFPAY ==
[2023-10-14 14:50] VITALS: BP 140/90; PULSE 69; RESP 19; TEMP 36.6; O2SAT 99; BMI 39.1
--- NOTE | 2023-10-14 14:53 | ED_ITS ---
HPI - General Adult General Chief complaint: Abdominal Pain Stated complaint: Vomiting Time Seen by Provider: 10/14/23 16:20 Source: patient Mode of arrival: ambulatory Limitations: no limitations History of Present Illness ED Provider: Dr. Aneta Mclain HPI narrative: patient comes to the emergency room complaining of nausea and vomiting for 5 days. Patient states that approximately 3 days ago she went to [facility], gave her medications but she continues to vomit. Patient admits that she smokes marijuana. Patient states that she has an appointment pending with corporate legal assistant in couple of months from now. Patient complaining of diffuse abdominal pain. Denies diarrhea, no fever or chills. Related Data Previous Rx's ?Medication ?Instructions ?Recorded aluminum-mag hydroxide-simethicone 5 ml PO 5XD PRN dyspepsia #30 mL 12/26/22 200 mg-200 mg-20 mg/5 mL oral susp (Maalox Advanced) famotidine 20 mg tablet (Pepcid) 20 mg PO DAILY #14 tabs 12/26/22 ondansetron 4 mg disintegrating 4 mg PO Q8H PRN nausea and 12/26/22 tablet vomiting #10 tabs dicyclomine 20 mg tablet 20 mg PO QID PRN abdominal pain 01/02/23 #14 tabs ondansetron 4 mg disintegrating 4 mg PO Q8H PRN nausea and 01/02/23 tablet vomiting #10 tabs pantoprazole 40 mg tablet,delayed 40 mg PO DAILY #14 tabs 01/02/23 release hyoscyamine sulfate 0.125 mg tablet 0.125 mg PO QID #20 tabs 03/21/23 omeprazole 20 mg capsule,delayed 20 mg PO DAILY #30 caps 03/21/23 release ondansetron 4 mg disintegrating 4 mg PO Q8H PRN nausea and 06/19/23 tablet vomiting #20 tabs metoclopramide HCl 5 mg tablet 5 mg PO TID PRN nausea and 10/14/23 (Reglan) vomiting #10 tabs ondansetron 4 mg disintegrating 4 mg PO Q6H PRN nausea and 10/14/23 tablet vomiting #14 tabs Allergies Allergy/AdvReac Type Severity Reaction Status Date / Time No Known Allergies Allergy Verified 10/14/23 14:51 Review of Systems 2 Review of Systems: Constitutional : No Weight loss, No Fever, No Chills, No Night Sweats, No Fatigue, No Malaise ENT/Mouth : No Hearing loss, No Ear Pain, No Nasal Congestion, No Sinus Pain, No Hoarseness, No sore throat, No Rhinorrhea, No Swallowing Difficulty Eyes: No Eye Pain, No Swelling, No Redness, No Foreign Body, No Discharge, No Vision Changes Cardiovascular : No Chest Pain, No SOB, No Dyspnea on Exertion, No Orthopnea, No Edema, No Palpitations Respiratory : No Cough, No Sputum, No Wheezing, No Smoke Exposure, No Dyspnea Gastrointestinal : Complaining of nausea vomiting, no diarrhea, diffuse abdominal pain for 5 days Genitourinary : no irregular bleeding, No Dysuria, No Urinary Frequency, No Hematuria, No Urinary Incontinence, No Urgency, No Flank Pain, No Urinary Flow Changes, No Hesitancy Musculoskeletal : No joint pain, No Myalgias, No Joint Swelling Skin : No Skin Lesions, No rash Neuro : No Weakness, No Numbness, No Paresthesias, No Loss of Consciousness, No Dizziness, No Headache Psych : No Anxiety/Panic, No Depression, No SI/HI/AH/VH, No Social Issues, Heme/Lymph: No Bruising, No Bleeding,No Lymphadenopathy Endocrine : No Polyuria, No Polydipsia, No Temperature Intolerance [facility] Past Medical History Medical History (Updated 10/14/23 @ 20:28 by Aneta Mclain MD) Cyclical vomiting Social History Social History Alcohol intake: never Smoked in Last 30 Days: No Use of substances other than those prescribed or required for medical reasons: Yes Substance Use Type: Marijuana Advance Directives: No Advance Directives Information Provided: No Physical Exam ED Vital Signs: Vital Signs - 24 hr 10/14/23 14:50 10/14/23 18:23 10/14/23 19:21 Temperature 98 F 98.7 F 97.6 F Pulse Rate 69 73 66 Respiratory Rate 19 16 17 Blood Pressure 140/90 H 118/69 141/71 H Pulse Oximetry 99 97 96 Oxygen Delivery Method Room Air Room Air Room Air BMI result Body Mass Index 39.1 Const Other: Appearance: Alert. Oriented X3. No acute distress. Eyes: Pupils equal, round and reactive to light. ENT: Pharynx normal. dry oral mucosa Neck: Normal inspection. Neck supple. No lymph nodes noted. No crepitus CVS: Normal heart rate and rhythm. Pulses normal. Normal S1 and S2 Respiratory: No respiratory distress. Breath sounds normal. No Wheezing. No rales Abdomen: Soft , mild discomfort to palpation all quadrants, no rebound, no guarding, No rigidity. No distention. Skin: Skin warm and dry. Normal skin color. Normal skin turgor. Extremities: No lower extremity edema. No Lacerations. No Rash Neuro: Oriented X 3. No motor deficit. No sensory deficit. Moving all extremities. No slurred speech. CN 2 through 12 grossly intact Psych: calm, cooperative, normal affect Course Course Course Narrative: This is an RME done by [facility]: Additional HPI, ROS, PE not included below will be deferred to primary provider. 28 year old female with pmh of depression, asthma, anemia, ALEJANDRA presents with complaints of diffuse abdominal pain, nausea, and vomiting which began Thursday and have not improved. She states she went to the emergency department at [facility] on Thursday and was sent home but her symptoms have not gotten better. Patient states she has not had an appetite and has not been able to tolerate food. She denies, diarrhea, constipation, chest pain, SOB, fever, chills, or changes to urinary habits. Appearance: Alert.? Oriented X3.? No acute cardiopulmonary distress distress.? Head: Normocephalic, atraumatic, no step-offs or deformities Neck: Normal inspection.? Neck supple.? CVS: Pulses normal.? Respiratory: No respiratory distress.? Abdomen: Soft and tender to palpation throughout. Normo-active bowel sounds in all 4 quadrants. Skin: ? Normal skin color. Extremities: 5/5 strength to bilateral upper and lower extremities Back: No midline tenderness, no C-spine tenderness, full range of motion, No CVA tenderness bilaterally Neuro: Oriented X 3.? No motor deficit.? No sensory deficit. Medications Administered Discontinued Medications Generic Name Dose Route Start Last Admin Trade Name Freq PRN Reason Stop Dose Admin Famotidine 20 mg 10/14/23 16:49 10/14/23 17:06 Famotidine/Pf 20 Mg/2 Ml Vial IVPUSH 10/14/23 16:50 20 mg ONCE ONE Administration Sodium Chloride 1,000 mls @ 999 mls/hr 10/14/23 16:49 10/14/23 18:27 Ns IVCONT 10/14/23 17:49 Infused .Q1H1M ONE Infusion Ketorolac Tromethamine 30 mg 10/14/23 16:49 10/14/23 17:06 Ketorolac Tromethamine 30 Mg/Ml Vial IVPUSH 10/14/23 16:50 30 mg ONCE ONE Administration Morphine Sulfate 2 mg 10/14/23 19:10 10/14/23 19:22 Morphine Sulfate 2 Mg/Ml Cartridge IVPUSH 10/14/23 19:11 2 mg ONCE ONE Administration Protocol Ondansetron HCl 4 mg 10/14/23 16:49 10/14/23 17:05 Ondansetron Hcl 4 Mg/2 Ml Vial IVPUSH 10/14/23 16:50 4 mg ONCE ONE Administration Potassium Chloride 60 meq 10/14/23 16:58 10/14/23 17:06 Potassium Chloride Er 20 Meq Tab.Er.Prt PO 10/14/23 16:59 60 meq ONCE ONE Administration Medical Decision Making Medical Decision Making MDM Narrative: - patient known to come to the emergency room for cyclical vomiting. - my interpretation of labs: Patient's potassium low. Patient requesting potassium pills . Patient's white blood cell count 12.7 likely secondary to reactive leukocytosis. - patient has had 5 imaging studies in the last year for abdominal pain. - Patient states that she was in [facility] over the weekend, records from [facility] have been requested - had a thorough discussion with the patient that marijuana use caused the cyclical vomiting. Patient does not seem to believe that marijuana is the cause of this. - patient does have dry oral mucosa, likely dehydrated from vomiting - Patient receiving p.o. potassium, IV fluids, Zofran, Pepcid. patient's physical exam is reassuring, no rebound, no guarding. - we obtained records from [facility]. Patient was seen by internal medicine 10 mm is in consult. It was also discussed with the patient the patient needs to stop smoking marijuana. Patient was also instructed to eat small and more frequent meals throughout the day. Patient admitted that when patient starts feeling sick again, she started smoking marijuana to improve her symptoms. It does help initially, but then she started having this symptoms of abdominal pain and vomiting again. It was discussed with the patient this is cyclical vomiting. - 20:25, patient asymptomatic, no nausea vomiting, no abdominal pain, doing well. patient requesting the phone number of our gastroenterologists Differential Diagnosis Differential Diagnoses: The differential diagnosis associated with the presentation includes ( cyclical vomiting, gastritis, gastroenteritis, H pylori) Admission/Observation Consideration of admission/observation: Escalation of care including admission/observation considered ( given patient's recurrent symptoms, cyclical vomiting, admission/ observation was considered) Lab Data MDM Lab Attestation statement: I reviewed the patient's lab results. 10/14/23 15:19 10/14/23 19:47 Labs: Lab Results 10/14/23 10/14/23 10/14/23 Range/Units 15:19 15:20 19:47 WBC 12.7 H (4.8-10.8) X10*3/uL RBC 4.32 (4.20-5.50) X10*6/uL Hgb 12.3 (12.0-16.0) g/dl Hct 35.5 L (37.0-47.0) % MCV 82.2 (80.0-98.0) fL MCH 28.5 (27.0-33.0) pg MCHC 34.6 (31.0-35.0) g/dl RDW 12.7 (11.0-16.0) % Plt Count 349 (160-400) X10*3/uL MPV 9.3 L (9.4-12.3) fL Immature Gran % (Auto) 0.6 H (0.0-0.4) % Neut % (Auto) 82.3 H (45-73) % Lymph % (Auto) 11.1 L (20-40) % Hawkins % (Auto) 5.8 (2-11) % Eos % (Auto) 0.0 (0-4) % Baso % (Auto) 0.2 (0-2) % Lymph # (Auto) 1.4 (1.2-4.9) X10*3/uL Hawkins # (Auto) 0.7 (0.1-1.2) X10*3/uL Eos # (Auto) 0.0 (0.0-0.4) X10*3/uL Baso # (Auto) 0.0 (0.0-0.2) X10*3/uL Abs Immat Gran (auto) 0.07 H (0.00-0.03) X10*3/uL Absolute Neuts (auto) 10.4 H (2.0-8.3) x10*3/uL Absolute Nucleated RBC 0.000 (0.0-0.012) X10*3/uL Nucleated RBC % (auto) 0.0 (0.0-0.2) /100WBC Sodium 141 144 (135-145) mmol/L Potassium 2.9 L* 3.5 D (3.3-5.1) mmol/L Chloride 106 108 (96-108) mmol/L Carbon Dioxide 24 25 (22-29) mmol/L Anion Gap 14 15 (12-20) BUN 8 L 7 L (9-16) mg/dL Creatinine 0.66 0.61 (0.5-1.4) mg/dL Estim Creat Clear Calc 153.9 166.5 Estimated GFR > 60 > 60 Random Glucose 112 111 (60-115) mg/dL Calcium 9.2 D 8.6 D (8.4-10.2) mg/dL Magnesium 1.8 (1.6-2.6) mg/dL Total Bilirubin 0.5 (0.0-1.0) mg/dL AST 30 (5-31) U/L ALT 52 H (0-31) U/L Alkaline Phosphatase 58 (39-117) U/L Total Protein 7.5 (6.5-8.0) g/dL Albumin 4.3 (3.5-5.0) g/dL Beta HCG, Quant < 2 mIU/mL Urine Color Yellow Urine Appearance Clear Urine pH 6.0 (5.0-9.0) Ur Specific [place] 1.025 (1.005-1.025) Urine Protein Trace (Neg-Trace) mg/dL Urine Glucose (UA) Negative (Negative) mg/dL Urine Ketones 40 (Negative) mg/dL Urine Blood Moderate (2+) H (Negative) Urine Nitrite Negative (Negative) Ur Leukocyte Esterase Negative (Negative) Urine RBC 6-10 H (0-2) /HPF Urine WBC 0-5 (0-5) /HPF Ur Squamous Epith Cells 3-5 (0-2) /HPF Urine Bacteria None Seen (None Seen) Hyaline Casts 3-5 (0-2) /LPF Influenza Type A (PCR) NEGATIVE (Negative) Influenza Type B (PCR) NEGATIVE (Negative) RSV RNA Qual (PCR) NEGATIVE (Negative) SARS-CoV-2 RNA (RT-PCR) NEGATIVE (Negative) Critical Care Time Critical Care Time Critical Care Time: Yes Total Critical Care Time: 35 Attestation: I have personally provided critical care time. Time includes review of lab data, radiology results, discussion with consultants, and monitoring for potential decompensation. Intervention performed as documented. Discharge Plan Discharge Clinical Impression: Dehydration, Vomiting, Hypokalemia Patient Disposition: Home, Self-Care Instructions: Hypokalemia (ED), Acute Nausea and Vomiting (ED) Additional Instructions: Please follow-up with your primary care physician tomorrow. If you have any worsening or new symptoms, please return to the emergency room or call 911 Prescriptions: New ondansetron 4 mg tablet,disintegrating 4 mg PO Q6H PRN (Reason: nausea and vomiting) Qty: 14 0RF metoclopramide HCl [Reglan] 5 mg tablet 5 mg PO TID PRN (Reason: nausea and vomiting) Qty: 10 0RF Rx Instructions: only use if Zofran does not work No Action ondansetron 4 mg tablet,disintegrating 4 mg PO Q8H PRN (Reason: nausea and vomiting) Qty: 10 0RF pantoprazole 40 mg tablet,delayed release (DR/EC) 40 mg PO DAILY Qty: 14 0RF dicyclomine 20 mg tablet 20 mg PO QID PRN (Reason: abdominal pain) Qty: 14 0RF omeprazole 20 mg capsule,delayed release(DR/EC) 20 mg PO DAILY Qty: 30 0RF hyoscyamine sulfate 0.125 mg tablet 0.125 mg PO QID Qty: 20 0RF ondansetron 4 mg tablet,disintegrating 4 mg PO Q8H PRN (Reason: nausea and vomiting) Qty: 20 0RF alum-mag hydroxide-simeth [Maalox Advanced] 200-200-20 mg/5 mL suspension 5 ml PO 5XD PRN (Reason: dyspepsia) Qty: 30 0RF Rx Instructions: administer between meals and at bedtime ondansetron 4 mg tablet,disintegrating 4 mg PO Q8H PRN (Reason: nausea and vomiting) Qty: 10 0RF famotidine [Pepcid] 20 mg tablet 20 mg PO DAILY Qty: 14 0RF Referrals: Del Jaramillo MD [Physician] - 10/15/23 Print Language: Welsh
[2023-10-14 15:27] LABS: MANUAL DIFF FLAG NO
[2023-10-14 15:30] LABS: Appearance Urine Clear; Color Urine Yellow; Glucose Urine UA Negative (Negative); Leukocyte Esterase Urine Negative (Negative); Nitrite Urine Negative (Negative); Specific Gravity - Urine 1.025 (1.005-1.025); UMIC TRIGGER UACC YES; Urine Blood Moderate (2+) (Negative); Urine Ketones 40 mg/dL (Negative); Urine Protein Trace mg/dL (Neg-Trace)
[2023-10-14 15:31] LABS: Basophils Percent Auto 0.2 % (0-2); Hematocrit 35.5 % (37.0-47.0); Hemoglobin 12.3 g/dl (12.0-16.0); Imm Gran Abs Auto 0.07 X10*3/uL (0.00-0.03); Imm Gran Pct Auto 0.6 % (0.0-0.4); Lymphocytes Absolute Auto 1.4 X10*3/uL (1.2-4.9); Lymphocytes Percent Auto 11.1 % (20-40); Mean Corpuscular HGB Conc 34.6 g/dl (31.0-35.0); Mean Corpuscular Hemoglobin 28.5 pg (27.0-33.0); Mean Corpuscular Volume 82.2 fL (80.0-98.0); Mean Platelet Volume 9.3 fL (9.4-12.3); Monocytes Absolute Auto 0.7 X10*3/uL (0.1-1.2); Monocytes Percent Auto 5.8 % (2-11); Neutrophils Absolute Auto 10.4 x10*3/uL (2.0-8.3); Neutrophils Percent Auto 82.3 % (45-73); Platelet Count 349 X10*3/uL (160-400); Red Blood Count 4.32 X10*6/uL (4.20-5.50); Red Cell Distribution Width 12.7 % (11.0-16.0); White Blood Count 12.7 X10*3/uL (4.8-10.8)
[2023-10-14 15:46] LABS: Bacteria Urine None Seen (None Seen); WBC Urine 0-5 /HPF (0-5)
[2023-10-14 16:06] LABS: Alanine Aminotransferase 52 U/L (0-31); Albumin Level 4.3 g/dL (3.5-5.0); Alkaline Phosphatase 58 U/L (39-117); Anion Gap 14 (12-20); Aspartate Amino Transferase 30 U/L (5-31); Bilirubin Total 0.5 mg/dL (0.0-1.0); Blood Urea Nitrogen 8 mg/dL (9-16); Calcium 9.2 mg/dL (8.4-10.2); Carbon Dioxide 24 mmol/L (22-29); Chloride 106 mmol/L (96-108); Creatinine Clr Calc Pharmacy 153.9; Estimated Glomerular Filt Rate > 60; Glucose Random 112 mg/dL (60-115); HCG Quantitative < 2 mIU/mL; Magnesium 1.8 mg/dL (1.6-2.6); Potassium 2.9 mmol/L (3.3-5.1); Sodium 141 mmol/L (135-145); Total Protein 7.5 g/dL (6.5-8.0)
[2023-10-14 16:15] LABS: Influenza A PCR NEGATIVE (Negative); Influenza B PCR NEGATIVE (Negative); Resp Syncy Virus RNA Qual PCR NEGATIVE (Negative); SARS COV2 PCR INHOUSE NEGATIVE (Negative)
--- OUTSIDE RECORDS SUMMARY | 2023-10-14 16:58 | XMS_ITS | Continuity of Care Document ---
Author Organization [facility] Address [address] [place] [address]- Care Team Providers Care Rn Paralegal Name Role Phone Kelsie DAVIS, Vern Washington Primary Care Physician [facility]23 - 09/03/23 [facility] [address] [place], [place] [phone] Attending Physician: Not on Staff, Attending MD [...] Refills, Maintenance, 02/28/22 12:04:00 EDT, Tablet, [id number], Partial fill upon patient request if the prescription is for a schedule II opioid drug., 1 tablet By Mouth Daily, 165, cm, 02/28/22 11:4... Start Date: 02/28/22 Status: Ordered haloperidol 0.5 mg oral tablet 0.5 mg, 1, tablet, By Mouth, 2 times a day, # 60 tablet, Refills 1, Tot. Refills 1, Maintenance, 06/23/23 11:50:00 EST, Route to Pharmacy Electronically, [facility][id number], Partial fill upon patient request if the prescription is for a sched... Start Date: 06/23/23 Stop Date: 08/22/23 Status: Ordered Nexplanon 68 mg subcutaneous implant 1 each = 68 mg, Subcutaneous Infusion, Once, 0 Refills, Maintenance, 10/20/18 12:46:42 EDT Start Date: 10/20/18 Status: Ordered ProAir HFA 90 mcg/inh inhalation aerosol with adapter 1, puffs, Inhalation, Every 4 hours, PRN, # 8.5 Gm, Refills 0, Tot. Refills 0, Maintenance, 01/08/22 14:10:00 EDT, Aerosol, Route to Pharmacy Electronically, [id number], [facility] #[id number], 165, cm, 01/08/22 13:31:00... Start Date: 01/08/22 Status: Ordered Problem List Condition Confirmation Course Effective Dates Status Health St atus Informant Asthma Confirmed Active Depression Confirmed Active Marijuana use Confirmed Active ALEJANDRA (obstructive sleep apnea) Confirmed Active Severe obesity (BMI 35.0-39.9) with comorbidity Confirmed Active Social History Social History Type Response Smoking Status Never (less than 100 in lifetime) entered on: 10/08/21 Sex Patient Care team information Care Team Personnel Name: Kelsie DAVIS, Vern Washington Position: S Physician - Primary Care Member Role: PCP Address: Address: [address] [facility] [place] [address]- Care Team Related Persons Name: KLARISSA SALINAS Address: [address] Address: home [address] [address] Name: USHA DE LA CRUZ Address: [place] [address] Name: CHANI SEXTON Address: home [address] [place] [address]
--- OUTSIDE RECORDS SUMMARY | 2023-10-14 16:58 | XMS_ITS | Continuity of Care Document ---
Author Organization [facility] Address [address] [place] [address]- Care Team Providers Care Software Development Intern Name Role Phone Vern Iglesias MD Primary Care Physician Encounter [facility] Date(s): 08/17/23 - 09/27/23 [facility] [address] [place], [place] [phone] Attending Physician: Vern Iglesias MD Admitting Physician: [...] Refills, Maintenance, 02/28/22 12:04:00 EDT, Tablet, [id number], Partial fill upon patient request if the prescription is for a schedule II opioid drug., 1 tablet By Mouth Daily, 165, cm, 02/28/22 11:4... Start Date: 02/28/22 Status: Ordered haloperidol 0.5 mg oral tablet 0.5 mg, 1, tablet, By Mouth, 2 times a day, # 60 tablet, Refills 1, Tot. Refills 1, Maintenance, 06/23/23 11:50:00 EST, Route to Pharmacy Electronically, [facility] #[id number], Partial fill upon patient request if the [...] 14:10:00 EDT, Aerosol, Route to Pharmacy Electronically, [id number], [facility] #[id number], 165, cm, 01/08/22 13:31:00... Start Date: 01/08/22 [...] Personnel Name: Kelsie DAVIS, Vern Washington Position: [facility] Physician - Primary Care Member Role: PCP Address: Address: [address] [facility] [place] [address]- Care Team Related Persons Name: KLARISSA SALINAS Address: [address] Address: home [address] [address] Name: USHA DE LA CRUZ Address: [place] [address] Name: CHANI SEXTON Address: home [address] [place] [address]
--- OUTSIDE RECORDS SUMMARY | 2023-10-14 16:58 | XMS_ITS | Continuity of Care Document ---
Author Organization [facility] Address [address] [place] [address]- Care Team Providers Care Senior Cytogenetic Technologist Name Role Phone Kelsie DAVIS, Vern Washington Primary Care Physician [facility]s): 08/28/23 - 09/27/23 [facility] [address] [place], [place] [phone] Allergies, Adverse Reactions, Alerts No Known Allergies [...] Refills, Maintenance, 02/28/22 12:04:00 EDT, Tablet, [id number], Partial fill upon patient request if the prescription is for a schedule II opioid drug., 1 tablet By Mouth Daily, 165, cm, 02/28/22 11:4... Start Date: 02/28/22 Status: Ordered haloperidol 0.5 mg oral tablet 0.5 mg, 1, tablet, By Mouth, 2 times a day, # 60 tablet, Refills 1, Tot. Refills 1, Maintenance, 06/23/23 11:50:00 EST, Route to Pharmacy Electronically, [facility] #[id number], Partial fill upon patient request if the [...] 14:10:00 EDT, Aerosol, Route to Pharmacy Electronically, [id number], [facility] #[id number], 165, cm, 01/08/22 13:31:00... Start Date: 01/08/22 [...] Care Member Role: PCP Address: Address: [address] [facility] [place] [address]- Care Team Related Persons Name: KLARISSA SALINAS Address: [address] Address: home [address] [address] Name: USHA DE LA CRUZ Address: [place] [address] Name: CHANI SEXTON Address: home [address] [place] [address]
--- OUTSIDE RECORDS SUMMARY | 2023-10-14 16:59 | XMS_ITS | Continuity of Care Document ---
Author Organization [facility] Address [address] [place] [address]- Care Team Providers Care Peoplesoft Business Analyst Name Role Phone Kelsie DAVIS, Vern Washington Primary Care Physician [facility] Date[facility]s): 06/23/23 - 08/27/23 [facility] [address] [place], [place] [phone] Attending Physician: Not on Staff, Attending MD [...] Refills, Maintenance, 02/28/22 12:04:00 EDT, Tablet, [id number], Partial fill upon patient request if the prescription is for a schedule II opioid drug., 1 tablet By Mouth Daily, 165, cm, 02/28/22 11:4... Start Date: 02/28/22 Status: Ordered haloperidol 0.5 mg oral tablet 0.5 mg, 1, tablet, By Mouth, 2 times a day, # 60 tablet, Refills 1, Tot. Refills 1, Maintenance, 06/23/23 11:50:00 EST, Route to Pharmacy Electronically, [facility] #[id number], Partial fill upon patient request if the [...] 14:10:00 EDT, Aerosol, Route to Pharmacy Electronically, [id number], [facility] #[id number], 165, cm, 01/08/22 13:31:00... Start Date: 01/08/22 [...] Care Member Role: PCP Address: Address: [address] [facility] [place] [address]- Care Team Related Persons Name: KLARISSA SALINAS Address: [address] Address: home [address] [address] Name: USHA DE LA CRUZ Address: [place] [address] Name: CHANI SEXTON Address: home [address] [place] [address]
--- OUTSIDE RECORDS SUMMARY | 2023-10-14 16:59 | XMS_ITS | Continuity of Care Document ---
Author Organization [facility] Address [address] [place] [address]- Care Team Providers Care Sequins Spooler Name Role Phone Kelsie DAVIS, Vern Washington Primary Care Physician [facility] Date(s): 06/05/23 - 08/27/[address] [address] Attending Physician: Eric Malcolm OD Admitting Physician: Eric Malcolm OD Allergies, Adverse Reactions, Alerts No Known Allergies [...] Refills, Maintenance, 02/28/22 12:04:00 EDT, Tablet, [id number], Partial fill upon patient request if the prescription is for a schedule II opioid drug., 1 tablet By Mouth Daily, 165, cm, 02/28/22 11:4... Start Date: 02/28/22 Status: Ordered haloperidol 0.5 mg oral tablet 0.5 mg, 1, tablet, By Mouth, 2 times a day, # 60 tablet, Refills 1, Tot. Refills 1, Maintenance, 06/23/23 11:50:00 EST, Route to Pharmacy Electronically, [facility] #[id number], Partial fill upon patient request if the [...] 14:10:00 EDT, Aerosol, Route to Pharmacy Electronically, [id number], [facility] #[id number], 165, cm, 01/08/22 13:31:00... Start Date: 01/08/22 [...] Personnel Name: Kelsie DAVIS, Vern Washington Position: [facility] Physician - Primary Care Member Role: PCP Address: Address: [address] [facility] [place] [address]- Care Team Related Persons Name: KLARISSA SALINAS Address: [address] Address: home [address] [address] Name: USHA DE LA CRUZ Address: [place] [address] Name: CHANI SEXTON Address: home [address] [place] [address]
--- OUTSIDE RECORDS SUMMARY | 2023-10-14 16:59 | XMS_ITS | Continuity of Care Document ---
Author Organization [facility] Address [address] [place] [address]- Care Team Providers Care Guest Services Assistant Name Role Phone Kelsie DAVIS, Vern Washington Primary Care Physician [facility] Date[facility]s): 06/22/23 - 07/22/23 [facility] [address] [place] [address] Allergies, Adverse Reactions, Alerts No [...] Refills, Maintenance, 02/28/22 12:04:00 EDT, Tablet, [id number], Partial fill upon patient request if the prescription is for a schedule II opioid drug., 1 tablet By Mouth Daily, 165, cm, 02/28/22 11:4... Start Date: 02/28/22 Status: Ordered haloperidol 0.5 mg oral tablet 0.5 mg, 1, tablet, By Mouth, 2 times a day, # 60 tablet, Refills 1, Tot. Refills 1, Maintenance, 06/23/23 11:50:00 EST, Route to Pharmacy Electronically, [facility] #[id number], Partial fill upon patient request if the [...] 14:10:00 EDT, Aerosol, Route to Pharmacy Electronically, [id number], [facility] #[id number], 165, cm, 01/08/22 13:31:00... Start Date: 01/08/22 [...] Care Member Role: PCP Address: Address: [address] [facility] [place] [address]- Care Team Related Persons Name: KLARISSA SALINAS Address: [address] Address: home [address] [address] Name: USHA DE LA CRUZ Address: [place] [address] Name: CHANI SEXTON Address: home [address] [place] [address]
--- OUTSIDE RECORDS SUMMARY | 2023-10-14 16:59 | XMS_ITS | Continuity of Care Document ---
Author Organization [facility] Address [address] [place] [address]- Care Team Providers Care Bilingual Counter Sales Retail Name Role Phone Kelsie DAVIS, Vern Washington Primary Care Physician [facility] Date(s): 06/05/23 - 07/05/23 [facility] [address] [place] [address] Allergies, Adverse Reactions, Alerts No Known [...] Refills, Maintenance, 02/28/22 12:04:00 EDT, Tablet, [id number], Partial fill upon patient request if the prescription is for a schedule II opioid drug., 1 tablet By Mouth Daily, 165, cm, 02/28/22 11:4... Start Date: 02/28/22 Status: Ordered haloperidol 0.5 mg oral tablet 0.5 mg, 1, tablet, By Mouth, 2 times a day, # 60 tablet, Refills 1, Tot. Refills 1, Maintenance, 06/23/23 11:50:00 EST, Route to Pharmacy Electronically, [facility] #[id number], Partial fill upon patient request if the [...] 14:10:00 EDT, Aerosol, Route to Pharmacy Electronically, [id number], [facility] #[id number], 165, cm, 01/08/22 13:31:00... Start Date: 01/08/22 [...] Care Member Role: PCP Address: Address: [address] [place] [address]- Care Team Related Persons Name: KLARISSA SALINAS Address: [address] Address: home [address] [address] Name: USHA DE LA CRUZ Address: [place] [address] Name: CHANI SEXTON Address: home [address] [place] [address]
--- OUTSIDE RECORDS SUMMARY | 2023-10-14 16:59 | XMS_ITS | Continuity of Care Document ---
Author Organization [facility] Address [address] [place] [address]- Care Team Providers Care Sonar Subsystem Equipment Operator Name Role Phone Kelsie DAVIS, Vern Washington Primary Care Physician Encounter [facility] Date(s): 07/28/23 - 08/27/[address] [address] Attending Physician: Mckenna Thomas Admitting Physician: AdmtrMckenna Referring Physician: Admtr, Ar8 Allergies, Adverse Reactions, Alerts No Known Allergies [...] Refills, Maintenance, 02/28/22 12:04:00 EDT, Tablet, [id number], Partial fill upon patient request if the prescription is for a schedule II opioid drug., 1 tablet By Mouth Daily, 165, cm, 02/28/22 11:4... Start Date: 02/28/22 Status: Ordered haloperidol 0.5 mg oral tablet 0.5 mg, 1, tablet, By Mouth, 2 times a day, # 60 tablet, Refills 1, Tot. Refills 1, Maintenance, 06/23/23 11:50:00 EST, Route to Pharmacy Electronically, [facility] #[id number], Partial fill upon patient request if the [...] 14:10:00 EDT, Aerosol, Route to Pharmacy Electronically, [id number], [facility] #[id number], 165, cm, 01/08/22 13:31:00... Start Date: 01/08/22 [...] Care Member Role: PCP Address: Address: [address] [facility] [place] [address]- Care Team Related Persons Name: KLARISSA SALINAS Address: [address] Address: home [address] [address] Name: USHA DE LA CRUZ Address: [place] [address] Name: CHANI SEXTON Address: home [address] [place] [address]
--- OUTSIDE RECORDS SUMMARY | 2023-10-14 17:00 | XMS_ITS | Continuity of Care Document ---
Author Organization [facility] Address [address] [place] [address]- Care Team Providers Care Food Checkers And Cashiers Supervisor Name Role Phone Vern Iglesias MD Primary Care Physician Encounter [facility] Date(s): 08/10/23 - 09/12/23 [facility] [address] [place], [place] [phone] Attending Physician: Vern Iglesias MD Admitting Physician: [...] Refills, Maintenance, 02/28/22 12:04:00 EDT, Tablet, [facility], Partial fill upon patient request if the prescription is for a schedule II opioid drug., 1 tablet By Mouth Daily, 165, cm, 02/28/22 11:4... Start Date: 02/28/22 Status: Ordered haloperidol 0.5 mg oral tablet 0.5 mg, 1, tablet, By Mouth, 2 times a day, # 60 tablet, Refills 1, Tot. Refills 1, Maintenance, 06/23/23 11:50:00 EST, Route to Pharmacy Electronically, [facility] #[id number], Partial fill upon patient request if the [...] 14:10:00 EDT, Aerosol, Route to Pharmacy Electronically, [id number], [facility] #[id number], 165, cm, 01/08/22 13:31:00... Start Date: 01/08/22 [...] Personnel Name: Kelsie DAVIS, Vern Washington Position: [facility] Physician - Primary Care Member Role: PCP Address: Address: [address] [facility] [place] [address]- Care Team Related Persons Name: KLARISSA SALINAS Address: [address] Address: home [address] [address] Name: USHA DE LA CRUZ Address: [place] [address] Name: CHANI SEXTON Address: home [address] [place] [address]
--- OUTSIDE RECORDS SUMMARY | 2023-10-14 17:00 | XMS_ITS | Continuity of Care Document ---
Author Organization [facility] Address [address] [place] [address]- Care Team Providers Care Sales Analyst Name Role Phone Kelsie ADVIS, Vern Washington Primary Care Physician [facility]s): 08/10/23 - 09/09/23 [facility] [address] [facility] [address] [place], [place] [phone] Allergies, Adverse Reactions, Alerts No Known Allergies [...] 1 Refills, Maintenance, 02/28/22 12:04:00 EDT, Tablet, [facility] #[id number], Partial fill upon patient request if the prescription is for a schedule II opioid drug., 1 tablet By Mouth Daily, 165, cm, 02/28/22 11:4... Start Date: 02/28/22 Status: Ordered haloperidol 0.5 mg oral tablet 0.5 mg, 1, tablet, By Mouth, 2 times a day, # 60 tablet, Refills 1, Tot. Refills 1, Maintenance, 06/23/23 11:50:00 EST, Route to Pharmacy Electronically, [facility] #[id number], Partial fill upon patient request if the [...] 14:10:00 EDT, Aerosol, Route to Pharmacy Electronically, [id number], [facility] #[id number], 165, cm, 01/08/22 13:31:00... Start Date: 01/08/22 [...] Care Member Role: PCP Address: Address: [address] [facility] [place] [address]- Care Team Related Persons Name: KLARISSA SALINAS Address: [address] Address: home [address] [address] Name: USHA DE LA CRUZ Address: [place] [address] Name: CHANI SEXTON Address: home [address] [place] [address]
--- OUTSIDE RECORDS SUMMARY | 2023-10-14 17:00 | XMS_ITS | Continuity of Care Document ---
Author Organization [facility] Address [address] [place] [address]- Care Team Providers Care Export Packer Name Role Phone Kelsie DAVIS, Vern Washington Primary Care Physician [facility] Date[facility]s): 08/28/23 - 09/27/23 [facility] [address] [place], [place] [phone] Attending Physician: Mckenna Thomas Admitting Physician: AdmMckenna [...] Refills, Maintenance, 02/28/22 12:04:00 EDT, Tablet, [id number], Partial fill upon patient request if the prescription is for a schedule II opioid drug., 1 tablet By Mouth Daily, 165, cm, 02/28/22 11:4... Start Date: 02/28/22 Status: Ordered haloperidol 0.5 mg oral tablet 0.5 mg, 1, tablet, By Mouth, 2 times a day, # 60 tablet, Refills 1, Tot. Refills 1, Maintenance, 06/23/23 11:50:00 EST, Route to Pharmacy Electronically, [facility] #[id number], Partial fill upon patient request if the [...] 14:10:00 EDT, Aerosol, Route to Pharmacy Electronically, [id number], [facility] #[id number], 165, cm, 01/08/22 13:31:00... Start Date: 01/08/22 [...] Primary Care Member Role: PCP Address: Address: [address] [place] [address] [place] [address]- Care Team Related Persons Name: KLARISSA SALINAS Address: Address: home [address] [address] Name: USHA DE LA CRUZ Address: [place] [address] Name: CHANI SEXTON Address: home [address] [place] [address]
[2023-10-14] MEDS: 0.9 % Sodium Chloride 1,000 ML 999 ML IVCONT (17:03)
[2023-10-14] MEDS: ondansetron HCL 4 MG/2 ML VIAL IVPUSH (17:05)
[2023-10-14] MEDS: Potassium Chloride ER 20 MEQ TAB.ER.PRT 60 MEQ PO (17:06)
[2023-10-14] MEDS: Ketorolac Tromethamine 30 MG/ML VIAL IVPUSH (17:06)
[2023-10-14] MEDS: Famotidine/PF 20 MG/2 ML VIAL IVPUSH (17:06)
[2023-10-14 18:23] VITALS: BP 118/69; PULSE 73; RESP 16; TEMP 37.1; O2SAT 97
--- NOTE | 2023-10-14 19:08 | PC.NURSE ---
this rn assumed care of pt, pt sitting up in stretcher reporting 10/10 lower abdominal pain at this time. dr. gamez aware.
[2023-10-14 19:21] VITALS: BP 141/71; PULSE 66; RESP 17; TEMP 36.4; O2SAT 96
[2023-10-14] MEDS: Morphine Sulfate 2 MG/ML CARTRIDGE IVPUSH (19:22)
--- NOTE | 2023-10-14 19:25 | PC.NURSE ---
pt medicated per mar for 10/10 lower abdominal pain.
[2023-10-14 20:09] LABS: Anion Gap 15 (12-20); Blood Urea Nitrogen 7 mg/dL (9-16); Calcium 8.6 mg/dL (8.4-10.2); Carbon Dioxide 25 mmol/L (22-29); Chloride 108 mmol/L (96-108); Creatinine Clr Calc Pharmacy 166.5; Estimated Glomerular Filt Rate > 60; Glucose Random 111 mg/dL (60-115); Potassium 3.5 mmol/L (3.3-5.1); Sodium 144 mmol/L (135-145)
[2023-10-14 20:36] VITALS: BP 141/71; PULSE 66; RESP 17; TEMP 36.4; O2SAT 96
== END 2023-10-14 20:36 | disposition home or self-care (01) ==
PROVIDERS: Physician Assistant; Emergency Provider Emergency Medicine
DX: E86.0 Dehydration (principal); E87.6 Hypokalemia; R11.2 Nausea with vomiting, unspecified; R11.15 Cyclical vomiting syndrome unrelated to migraine; Z03.818 Encounter for observation for suspected exposure to other biological agents ruled out; J45.909 Unspecified asthma, uncomplicated; Z79.899 Other long term (current) drug therapy
CPT/HCPCS: 0241U; 36415; 80048; 80053; 81001; 83735; 84702; 85025; 96361; 96374; 96375; 99284; J1885; J2270; J2405

== ENCOUNTER 2024-01-29 00:18 | Emergency (ER) | payer OTHER, SELFPAY ==
[2024-01-29 00:20] VITALS: BP 132/76; PULSE 70; RESP 18; TEMP 36.6; O2SAT 98; BMI 41.2
[2024-01-29] MEDS: Ondansetron ODT 4 MG TAB.RAPDIS TRANSLINGU (00:40)
[2024-01-29 00:46] LABS: Basophils Percent Auto 0.2 % (0-2); Hematocrit 37.7 % (37.0-47.0); Imm Gran Abs Auto 0.04 X10*3/uL (0.00-0.03); Imm Gran Pct Auto 0.3 % (0.0-0.4); Lymphocytes Absolute Auto 1.3 X10*3/uL (1.2-4.9); Lymphocytes Percent Auto 10.7 % (20-40); MANUAL DIFF FLAG NO; Mean Corpuscular HGB Conc 34.5 g/dl (31.0-35.0); Mean Corpuscular Hemoglobin 27.7 pg (27.0-33.0); Mean Corpuscular Volume 80.2 fL (80.0-98.0); Mean Platelet Volume 9.1 fL (9.4-12.3); Monocytes Absolute Auto 0.3 X10*3/uL (0.1-1.2); Monocytes Percent Auto 2.5 % (2-11); Neutrophils Absolute Auto 10.7 x10*3/uL (2.0-8.3); Neutrophils Percent Auto 86.3 % (45-73); Platelet Count 423 X10*3/uL (160-400); Red Cell Distribution Width 13.1 % (11.0-16.0); White Blood Count 12.4 X10*3/uL (4.8-10.8)
[2024-01-29 01:01] LABS: Alanine Aminotransferase 31 U/L (0-31); Albumin Level 4.4 g/dL (3.5-5.0); Alkaline Phosphatase 73 U/L (39-117); Anion Gap 17 (12-20); Aspartate Amino Transferase 15 U/L (5-31); Bilirubin Total 0.6 mg/dL (0.0-1.0); Blood Urea Nitrogen 10 mg/dL (9-16); Calcium 9.6 mg/dL (8.4-10.2); Carbon Dioxide 19 mmol/L (22-29); Chloride 109 mmol/L (96-108); Creatinine Clr Calc Pharmacy 160.9; Estimated Glomerular Filt Rate > 60; Glucose Random 145 mg/dL (60-115); Lipase 15 U/L (8-78); Potassium 3.7 mmol/L (3.3-5.1); Sodium 141 mmol/L (135-145); Total Protein 8.1 g/dL (6.5-8.0)
--- NOTE | 2024-01-29 01:12 | PC.NURSE ---
pt from home, a&ox4, respirations even and unlabored. pt reporting onset of nausea and vomiting starting early this morning. pt reports poor PO intake due to vomiting. pt denies any sick contacts. pt reports pain in the lower abdomen but denies diarrhea. 20G placed in left forearm.
--- NOTE | 2024-01-29 01:21 | ED.NAVMDI ---
HPI - Nausea/Vomiting/Diarrhea General Chief complaint: Nausea/Vomiting/Diarrhea Stated complaint: n/v Time Seen by Provider: 01/29/24 01:20 Source: patient Mode of arrival: ambulatory Limitations: no limitations History of Present Illness ED Provider: ammy TRAN Narrative: Patient with cyclic vomiting syndrome with history of marijuana use which she stopped about 1 week feeling very anxious and vomiting all day multiple times history of same multiple times no history of gallstones no fever no chills no diarrhea Related Data Previous Rx's ?Medication ?Instructions ?Recorded aluminum-mag hydroxide-simethicone 5 ml PO 5XD PRN dyspepsia #30 mL 12/26/22 200 mg-200 mg-20 mg/5 mL oral susp (Maalox Advanced) famotidine 20 mg tablet (Pepcid) 20 mg PO DAILY #14 tabs 12/26/22 ondansetron 4 mg disintegrating 4 mg PO Q8H PRN nausea and 12/26/22 tablet vomiting #10 tabs dicyclomine 20 mg tablet 20 mg PO QID PRN abdominal pain 01/02/23 #14 tabs ondansetron 4 mg disintegrating 4 mg PO Q8H PRN nausea and 01/02/23 tablet vomiting #10 tabs pantoprazole 40 mg tablet,delayed 40 mg PO DAILY #14 tabs 01/02/23 release hyoscyamine sulfate 0.125 mg tablet 0.125 mg PO QID #20 tabs 03/21/23 omeprazole 20 mg capsule,delayed 20 mg PO DAILY #30 caps 03/21/23 release ondansetron 4 mg disintegrating 4 mg PO Q8H PRN nausea and 06/19/23 tablet vomiting #20 tabs metoclopramide HCl 5 mg tablet 5 mg PO TID PRN nausea and 10/14/23 (Reglan) vomiting #10 tabs ondansetron 4 mg disintegrating 4 mg PO Q6H PRN nausea and 10/14/23 tablet vomiting #14 tabs lorazepam 1 mg tablet (Ativan) 1 mg PO BID PRN anxiety #14 tabs 01/29/24 ondansetron 4 mg disintegrating 4 mg PO Q6-8H PRN nausea and 01/29/24 tablet vomiting #7 tabs Allergies Allergy/AdvReac Type Severity Reaction Status Date / Time No Known Allergies Allergy Verified 01/29/24 00:20 Review of Systems Review of Systems: Yes all other systems are reviewed and are negative [facility] Past Medical History Medical History Cyclical vomiting Social History Social History Alcohol intake: never Smoked in Last 30 Days: No Use of substances other than those prescribed or required for medical reasons: No Substance Use Type: Marijuana Advance Directives: No Advance Directives Information Provided: No Do you have a plan to hurt others: No Plan Patient : No Physical Exam Vital Signs: Vital Signs: Last Vital Signs Temp 97.9 F 01/29/24 00:20 Pulse 70 01/29/24 00:20 Resp 18 01/29/24 00:20 BP 132/76 01/29/24 00:20 Pulse Ox 98 01/29/24 00:20 O2 Del Method Room Air 01/29/24 00:20 BMI result Body Mass Index 41.2 Appearance: Alert. Oriented X3. No acute distress. Anxious Eyes: PERRLA, No Nystagmus ENT: Pharynx normal. Oral Mucosa moist Neck: Normal inspection. Neck supple. CVS: Normal heart rate and rhythm. Pulses normal. Respiratory: No respiratory distress. Equal air entry bilateral, Abdomen: Soft and nontender. Bowel sounds are present, no mass palpable, no CVA tenderness Skin: Skin warm and dry. Normal skin color. Normal skin turgor. Extremities: No lower extremity edema. No calf tenderness Neuro: Oriented X 3. Anxious Medications Administered Generic Name Dose Route Start Last Admin Trade Name Freq PRN Reason Stop Dose Admin Sodium Chloride 1,000 mls @ 999 mls/hr 01/29/24 01:31 01/29/24 01:38 Ns IV 01/29/24 02:31 999 mls/hr .Q1H1M ONE Administration Discontinued Medications Generic Name Dose Route Start Last Admin Trade Name Freq PRN Reason Stop Dose Admin Lorazepam 2 mg 01/29/24 01:31 01/29/24 01:38 Lorazepam 2 Mg/Ml Vial IVPUSH 01/29/24 01:32 2 mg ONCE ONE Administration Ondansetron HCl 4 mg 01/29/24 00:29 01/29/24 00:40 Ondansetron Odt 4 Mg Tab.Rapdis TRANSLINGU 01/29/24 00:30 4 mg ONCE ONE Administration Prochlorperazine Edisylate 10 mg 01/29/24 01:31 01/29/24 01:38 Prochlorperazine Edisylate 10 Mg/2 Ml Vial IVPUSH 01/29/24 01:32 10 mg ONCE ONE Administration Medical Decision Making Medical Decision Making MDM Narrative: Patient with cyclic vomiting syndrome will give IV fluids and Ativan Lab Data [facility] Lab Attestation statement: I reviewed the patient's lab results. 01/29/24 00:41 01/29/24 00:41 Labs: Lab Results 01/29/24 Range/Units 00:41 WBC 12.4 H (4.8-10.8) X10*3/uL RBC 4.70 (4.20-5.50) X10*6/uL Hgb 13.0 (12.0-16.0) g/dl Hct 37.7 (37.0-47.0) % MCV 80.2 (80.0-98.0) fL MCH 27.7 (27.0-33.0) pg MCHC 34.5 (31.0-35.0) g/dl RDW 13.1 (11.0-16.0) % Plt Count 423 H (160-400) X10*3/uL MPV 9.1 L (9.4-12.3) fL Immature Gran % (Auto) 0.3 (0.0-0.4) % Neut % (Auto) 86.3 H (45-73) % Lymph % (Auto) 10.7 L (20-40) % [place] % (Auto) 2.5 (2-11) % Eos % (Auto) 0.0 (0-4) % Baso % (Auto) 0.2 (0-2) % Lymph # (Auto) 1.3 (1.2-4.9) X10*3/uL [place] # (Auto) 0.3 (0.1-1.2) X10*3/uL Eos # (Auto) 0.0 (0.0-0.4) X10*3/uL Baso # (Auto) 0.0 (0.0-0.2) X10*3/uL Abs Immat Gran (auto) 0.04 H (0.00-0.03) X10*3/uL Absolute Neuts (auto) 10.7 H (2.0-8.3) x10*3/uL Absolute Nucleated RBC 0.000 (0.0-0.012) X10*3/uL Nucleated RBC % (auto) 0.0 (0.0-0.2) /100WBC Sodium 141 (135-145) mmol/L Potassium 3.7 (3.3-5.1) mmol/L Chloride 109 H (96-108) mmol/L Carbon Dioxide 19 L (22-29) mmol/L Anion Gap 17 (12-20) BUN 10 (9-16) mg/dL Creatinine 0.65 (0.5-1.4) mg/dL Estim Creat Clear Calc 160.9 Estimated GFR > 60 Random Glucose 145 H (60-115) mg/dL Calcium 9.6 D (8.4-10.2) mg/dL Total Bilirubin 0.6 (0.0-1.0) mg/dL AST 15 (5-31) U/L ALT 31 (0-31) U/L Alkaline Phosphatase 73 (39-117) U/L Total Protein 8.1 H (6.5-8.0) g/dL Albumin 4.4 (3.5-5.0) g/dL Lipase 15 (8-78) U/L Influenza Type A (PCR) NEGATIVE (Negative) Influenza Type B (PCR) NEGATIVE (Negative) RSV RNA Qual (PCR) NEGATIVE (Negative) SARS-CoV-2 RNA (RT-PCR) NEGATIVE (Negative) Discharge Plan Discharge Clinical Impression: Cyclical vomiting Patient Disposition: Home, Self-Care Instructions: Cyclic Vomiting Syndrome (ED) Additional Instructions: Drink plenty of fluids Ativan for severe anxiety Medicine for nausea as prescribed Prescriptions: New lorazepam [Ativan] 1 mg tablet 1 mg PO BID PRN (Reason: anxiety) Qty: 14 0RF ondansetron 4 mg tablet,disintegrating 4 mg PO Q6-8H PRN (Reason: nausea and vomiting) Qty: 7 0RF No Action ondansetron 4 mg tablet,disintegrating 4 mg PO Q8H PRN (Reason: nausea and vomiting) Qty: 10 0RF pantoprazole 40 mg tablet,delayed release (DR/EC) 40 mg PO DAILY Qty: 14 0RF dicyclomine 20 mg tablet 20 mg PO QID PRN (Reason: abdominal pain) Qty: 14 0RF omeprazole 20 mg capsule,delayed release(DR/EC) 20 mg PO DAILY Qty: 30 0RF hyoscyamine sulfate 0.125 mg tablet 0.125 mg PO QID Qty: 20 0RF ondansetron 4 mg tablet,disintegrating 4 mg PO Q8H PRN (Reason: nausea and vomiting) Qty: 20 0RF alum-mag hydroxide-simeth [Maalox Advanced] 200-200-20 mg/5 mL suspension 5 ml PO 5XD PRN (Reason: dyspepsia) Qty: 30 0RF Rx Instructions: administer between meals and at bedtime ondansetron 4 mg tablet,disintegrating 4 mg PO Q8H PRN (Reason: nausea and vomiting) Qty: 10 0RF famotidine [Pepcid] 20 mg tablet 20 mg PO DAILY Qty: 14 0RF ondansetron 4 mg tablet,disintegrating 4 mg PO Q6H PRN (Reason: nausea and vomiting) Qty: 14 0RF metoclopramide HCl [Reglan] 5 mg tablet 5 mg PO TID PRN (Reason: nausea and vomiting) Qty: 10 0RF Rx Instructions: only use if Zofran does not work Print Language: Mosotho
[2024-01-29 01:23] LABS: Influenza A PCR NEGATIVE (Negative); Influenza B PCR NEGATIVE (Negative); Resp Syncy Virus RNA Qual PCR NEGATIVE (Negative); SARS COV2 PCR INHOUSE NEGATIVE (Negative)
[2024-01-29] MEDS: LORazepam 2 MG/ML VIAL IVPUSH (01:38)
[2024-01-29] MEDS: Prochlorperazine Edisylate 10 MG/2 ML VIAL IVPUSH (01:38)
[2024-01-29] MEDS: 0.9 % Sodium Chloride 1,000 ML 999 ML IV (01:38)
--- NOTE | 2024-01-29 01:43 | PC.NURSE ---
pt ambulated to bathroom with steady gait unable to obtain urine due to bowel movement. pt medicated per jul.
--- NOTE | 2024-01-29 02:04 | MHC.EDTECH ---
Hourly rounds completed,patient ambulated to the bathroom with a steady gait to obtain a urine sample,patient was unable to give at this time,will re attempt,family at bedside call ridley in reach
[2024-01-29 04:00] VITALS: BP 106/59; PULSE 114; RESP 16; TEMP 37.2; O2SAT 98
--- NOTE | 2024-01-29 04:03 | PC.NURSE ---
pt awake and alert, pt reports she is feeling better and would like to go home. aware. pt ambulatory out of ed with steady gait.
[2024-01-29 04:04] VITALS: BP 106/59; PULSE 114; RESP 16; TEMP 37.2; O2SAT 98
== END 2024-01-29 04:05 | disposition home or self-care (01) ==
PROVIDERS: Emergency Provider Internal Medicine
DX: R11.15 Cyclical vomiting syndrome unrelated to migraine (principal); F41.9 Anxiety disorder, unspecified; F12.90 Cannabis use, unspecified, uncomplicated; Z03.818 Encounter for observation for suspected exposure to other biological agents ruled out; J45.909 Unspecified asthma, uncomplicated; Z79.899 Other long term (current) drug therapy
CPT/HCPCS: 0241U; 36415; 80053; 83690; 85025; 96361; 96374; 96375; 99284; 99285; J0737; J2060

== ENCOUNTER 2024-01-30 19:05 | Emergency (ER) | payer OTHER, SELFPAY ==
--- NOTE | ~2024-01-30 | CT_ITS ---
EXAMINATION: CT ABDOMEN AND PELVIS WITH CONTRAST CLINICAL INFORMATION: Pancreatitis COMPARISON: 01/02/2023 TECHNIQUE: Multidetector volumetric images were obtained from the superior aspect of the liver through the pubic symphysis following administration 85 mL of Omnipaque 350 intravenous contrast. Sagittal and coronal reformatted images were obtained on the technologist's workstation. Oral contrast: No This CT examination was performed using dose optimization techniques as appropriate, variously including the following: *Automated exposure control *Adjustment of mA and/or kV according to patient size (this includes techniques or standardized protocols for targeted exams where dose is matched to indication/reason for exam; i.e. extremities or head) *Use of iterative reconstruction technique DLP: 959 mGy-cm FINDINGS: LUNG BASES: The visualized lung bases are unremarkable. LIVER, GALLBLADDER, AND BILIARY TREE: The liver is normal in size, shape, and attenuation. No focal hepatic lesion or biliary ductal dilatation is present. The gallbladder is unremarkable with no evidence of radiopaque gallstones, gallbladder wall thickening, or obvious pericholecystic inflammatory changes. PANCREAS: Unremarkable. SPLEEN: Unremarkable. ADRENAL GLANDS: Unremarkable. KIDNEYS AND URETERS: Bilateral nephrograms are symmetric. No hydronephrosis or obstructing calculus identified. BLADDER: Mildly distended and grossly unremarkable. GASTROINTESTINAL TRACT: No evidence of bowel obstruction. Evaluation for wall thickening in some segments of the colon is limited due to luminal collapse. The appendix is unremarkable. No free fluid or free air is seen. ABDOMINAL WALL: No significant hernia is appreciated. LYMPH NODES: Normal. VASCULAR: Unremarkable. PELVIC VISCERA: Left adnexal cyst measures up to approximately 4.2 cm. Findings are overwhelmingly likely to represent a benign functional cyst. No followup imaging recommended. OSSEOUS STRUCTURES: Unremarkable. CT/CT abdomen pelvis w IV con IMPRESSION: No acute findings identified in the abdomen/pelvis. Pancreas appears unremarkable. Electronically signed by: Willy Crump MD 01/30/2024 11:16 PM EDT
--- NOTE | 2024-01-30 19:28 | ED_ITS ---
HPI - General Adult General Chief complaint: Abdominal Pain Stated complaint: vomiting, body aches Time Seen by Provider: 01/30/24 21:16 Source: patient Mode of arrival: ambulatory Limitations: no limitations History of Present Illness ED Provider: ammy TRAN narrative: Patient's history of cyclic vomiting/marijuana induced vomiting with increased anxiety was seen here yesterday for same comes back as not able to eat or drink anything and has a epigastric pain patient does have gallbladder sludge in the past ultrasound done on 04/09 no fever no chills no diarrhea patient's lipase and liver functions were normal on 01/28 Related Data Previous Rx's ?Medication ?Instructions ?Recorded aluminum-mag hydroxide-simethicone 5 ml PO 5XD PRN dyspepsia #30 mL 12/26/22 200 mg-200 mg-20 mg/5 mL oral susp (Maalox Advanced) famotidine 20 mg tablet (Pepcid) 20 mg PO DAILY #14 tabs 12/26/22 ondansetron 4 mg disintegrating 4 mg PO Q8H PRN nausea and 12/26/22 tablet vomiting #10 tabs dicyclomine 20 mg tablet 20 mg PO QID PRN abdominal pain 01/02/23 #14 tabs ondansetron 4 mg disintegrating 4 mg PO Q8H PRN nausea and 01/02/23 tablet vomiting #10 tabs pantoprazole 40 mg tablet,delayed 40 mg PO DAILY #14 tabs 01/02/23 release hyoscyamine sulfate 0.125 mg tablet 0.125 mg PO QID #20 tabs 03/21/23 omeprazole 20 mg capsule,delayed 20 mg PO DAILY #30 caps 03/21/23 release ondansetron 4 mg disintegrating 4 mg PO Q8H PRN nausea and 06/19/23 tablet vomiting #20 tabs metoclopramide HCl 5 mg tablet 5 mg PO TID PRN nausea and 10/14/23 (Reglan) vomiting #10 tabs ondansetron 4 mg disintegrating 4 mg PO Q6H PRN nausea and 10/14/23 tablet vomiting #14 tabs lorazepam 1 mg tablet (Ativan) 1 mg PO BID PRN anxiety #14 tabs 01/29/24 ondansetron 4 mg disintegrating 4 mg PO Q6-8H PRN nausea and 01/29/24 tablet vomiting #7 tabs Allergies Allergy/AdvReac Type Severity Reaction Status Date / Time No Known Allergies Allergy Verified 01/30/24 19:31 Review of Systems 2 Review of Systems: Yes all other systems are reviewed and are negative [facility] Past Medical History Medical History Cyclical vomiting Social History Social History Alcohol intake: never Substance Use Type: Marijuana Advance Directives: No Advance Directives Information Provided: No Do you have a plan to hurt others: No Plan Physical Exam ED Vital Signs: Vital Signs - 24 hr 01/30/24 19:29 01/30/24 23:51 01/31/24 02:17 Temperature 98.6 F 98.4 F 98.9 F Pulse Rate 70 99 98 Respiratory Rate 18 16 17 Blood Pressure 132/58 L 129/69 126/81 Pulse Oximetry 97 100 94 Oxygen Delivery Method Room Air Room Air Room Air 01/31/24 02:18 Temperature 98.9 F Pulse Rate 98 Respiratory Rate 17 Blood Pressure 126/81 Pulse Oximetry 94 Oxygen Delivery Method Room Air BMI result Body Mass Index 41.3 Appearance: Alert. Oriented X3. anxious Eyes: PERRLA, No Nystagmus ENT: Pharynx normal. Oral Mucosa moist Neck: Normal inspection. Neck supple. CVS: Normal heart rate and rhythm. Pulses normal. Respiratory: No respiratory distress. Equal air entry bilateral, no wheezing/rales/rhonchi Abdomen: Soft and tender in epigastric area. Bowel sounds are present, no mass palpable, no CVA tenderness Skin: Skin warm and dry. Normal skin color. Normal skin turgor. Extremities: No lower Course Course Course Narrative: This is an RME performed by Little Tai CNP: Additional HPI, ROS, PE not included below will be deferred to primary provider. Patient is a 28-year-old female presenting to emergency department Reporting intractable vomiting since this morning, associated diffuse abdominal pain, ?kidney pain? back pain, decreased urinary output, body aches. States she was here 2 days ago and has not been feeling well since then, states that she was discharged home with antiemetics in an antianxiety medication which she does not want to keep taking. Reports having an EGD scheduled for January 14, missed this the appointment because she was sick, awaiting this to be rescheduled. Reports that she has no idea what is causing this to reoccur. Plan: Serum labs, viral panel, urinalysis, hCG Medications Administered Discontinued Medications Generic Name Dose Route Start Last Admin Trade Name Antony PRN Reason Stop Dose Admin Famotidine 20 mg 01/30/24 21:39 01/30/24 22:10 Famotidine/Pf 20 Mg/2 Ml Vial IVPUSH 01/30/24 21:40 20 mg ONCE ONE Administration Sodium Chloride 1,000 mls @ 999 mls/hr 01/30/24 21:33 01/31/24 00:00 Ns IV 01/30/24 22:33 Infused .Q1H1M ONE Infusion Iohexol 85 ml 01/30/24 21:58 01/30/24 21:58 Iohexol 350 Mg/Ml 100 Ml Infus..Btl IV 01/30/24 21:59 85 ml ONCE ONE Administration Lorazepam 2 mg 01/30/24 21:39 01/30/24 22:10 Lorazepam 2 Mg/Ml Vial IVPUSH 01/30/24 21:40 2 mg ONCE ONE Administration Prochlorperazine Edisylate 10 mg 01/30/24 21:33 01/30/24 22:10 Prochlorperazine Edisylate 10 Mg/2 Ml Vial IVPUSH 01/30/24 21:34 10 mg ONCE ONE Administration Medical Decision Making Medical Decision Making [facility] Narrative: Patient with cyclic vomiting syndrome noted to have elevated lipase level of 200 with no significant abdominal pain CT scan of the abdomen is negative for any pancreas inflammation gallbladder is normal patient felt better after medication taking p.o. fluids will discharge patient home advised to continue her medication for anxiety and vomiting and follow up as outpatient Differential Diagnosis Differential Diagnoses: The differential diagnosis associated with the presentation includes Cholelithiasis/gastritis/cyclic vomiting/pancreatitis Lab Data [facility] Lab Attestation statement: I reviewed the patient's lab results. 01/30/24 19:55 01/30/24 19:55 Labs: Lab Results 01/30/24 01/30/24 Range/Units 19:55 20:02 WBC 12.1 H (4.8-10.8) X10*3/uL RBC 4.45 (4.20-5.50) X10*6/uL Hgb 12.3 (12.0-16.0) g/dl Hct 35.2 L (37.0-47.0) % MCV 79.1 L (80.0-98.0) fL MCH 27.6 (27.0-33.0) pg MCHC 34.9 (31.0-35.0) g/dl RDW 13.0 (11.0-16.0) % Plt Count 398 (160-400) X10*3/uL MPV 8.9 L (9.4-12.3) fL Immature Gran % (Auto) 0.2 (0.0-0.4) % Neut % (Auto) 84.2 H (45-73) % Lymph % (Auto) 12.5 L (20-40) % [place] % (Auto) 2.8 (2-11) % Eos % (Auto) 0.0 (0-4) % Baso % (Auto) 0.3 (0-2) % Lymph # (Auto) 1.5 (1.2-4.9) X10*3/uL [place] # (Auto) 0.3 (0.1-1.2) X10*3/uL Eos # (Auto) 0.0 (0.0-0.4) X10*3/uL Baso # (Auto) 0.0 (0.0-0.2) X10*3/uL Abs Immat Gran (auto) 0.03 (0.00-0.03) X10*3/uL Absolute Neuts (auto) 10.1 H (2.0-8.3) x10*3/uL Absolute Nucleated RBC 0.000 (0.0-0.012) X10*3/uL Nucleated RBC % (auto) 0.0 (0.0-0.2) /100WBC Sodium 140 (135-145) mmol/L Potassium 3.3 (3.3-5.1) mmol/L Chloride 106 (96-108) mmol/L Carbon Dioxide 24 (22-29) mmol/L Anion Gap 13 (12-20) BUN 8 L (9-16) mg/dL Creatinine 0.62 (0.5-1.4) mg/dL Estim Creat Clear Calc 169.0 Estimated GFR > 60 Random Glucose 116 H (60-115) mg/dL Calcium 9.4 (8.4-10.2) mg/dL Magnesium 1.9 (1.6-2.6) mg/dL Total Bilirubin 0.7 (0.0-1.0) mg/dL AST 18 (5-31) U/L ALT 30 (0-31) U/L Alkaline Phosphatase 68 (39-117) U/L Total Protein 7.9 (6.5-8.0) g/dL Albumin 4.3 (3.5-5.0) g/dL Lipase 200 H (8-78) U/L Urine Color Yellow Urine Appearance Clear Urine pH 6.0 (5.0-9.0) Ur Specific [place] 1.025 (1.005-1.025) Urine Protein Trace (Neg-Trace) mg/dL Urine Glucose (UA) Negative (Negative) mg/dL Urine Ketones 80 (Negative) mg/dL Urine Blood Trace H (Negative) Urine Nitrite Negative (Negative) Ur Leukocyte Esterase Negative (Negative) Urine RBC 3-5 H (0-2) /HPF Urine WBC 0-5 (0-5) /HPF Ur Squamous Epith Cells 3-5 (0-2) /HPF Urine Bacteria None Seen (None Seen) Hyaline Casts 0-2 (0-2) /LPF Urine Test NEGATIVE (NEGATIVE) Influenza Type A (PCR) NEGATIVE (Negative) Influenza Type B (PCR) NEGATIVE (Negative) RSV RNA Qual (PCR) NEGATIVE (Negative) SARS-CoV-2 RNA (RT-PCR) NEGATIVE (Negative) Discharge Plan Discharge Clinical Impression: Cyclical vomiting, Elevated lipase Patient Disposition: Home, Self-Care Instructions: Cyclic Vomiting Syndrome (ED) Additional Instructions: Continue taking your anxiety medication and medicine for vomiting Follow with your care nurse rn Report to the ER if worsening of the abdominal pain at this time there is no evidence of any pancreatitis Prescriptions: No Action ondansetron 4 mg tablet,disintegrating 4 mg PO Q8H PRN (Reason: nausea and vomiting) Qty: 10 0RF pantoprazole 40 mg tablet,delayed release (DR/EC) 40 mg PO DAILY Qty: 14 0RF dicyclomine 20 mg tablet 20 mg PO QID PRN (Reason: abdominal pain) Qty: 14 0RF omeprazole 20 mg capsule,delayed release(DR/EC) 20 mg PO DAILY Qty: 30 0RF hyoscyamine sulfate 0.125 mg tablet 0.125 mg PO QID Qty: 20 0RF ondansetron 4 mg tablet,disintegrating 4 mg PO Q8H PRN (Reason: nausea and vomiting) Qty: 20 0RF lorazepam [Ativan] 1 mg tablet 1 mg PO BID PRN (Reason: anxiety) Qty: 14 0RF ondansetron 4 mg tablet,disintegrating 4 mg PO Q6-8H PRN (Reason: nausea and vomiting) Qty: 7 0RF alum-mag hydroxide-simeth [Maalox Advanced] 200-200-20 mg/5 mL suspension 5 ml PO 5XD PRN (Reason: dyspepsia) Qty: 30 0RF Rx Instructions: administer between meals and at bedtime ondansetron 4 mg tablet,disintegrating 4 mg PO Q8H PRN (Reason: nausea and vomiting) Qty: 10 0RF famotidine [Pepcid] 20 mg tablet 20 mg PO DAILY Qty: 14 0RF ondansetron 4 mg tablet,disintegrating 4 mg PO Q6H PRN (Reason: nausea and vomiting) Qty: 14 0RF metoclopramide HCl [Reglan] 5 mg tablet 5 mg PO TID PRN (Reason: nausea and vomiting) Qty: 10 0RF Rx Instructions: only use if Zofran does not work Interventions: ED Discharge Assessment Last Done: 01/31/24 02:18 Discharge Date/Time: 01/31/24 02:20 Print Language: Urdu
[2024-01-30 19:29] VITALS: BP 132/58; PULSE 70; RESP 18; TEMP 37; O2SAT 97; BMI 41.3
[2024-01-30 19:59] LABS: MANUAL DIFF FLAG NO
[2024-01-30 20:02] LABS: Basophils Percent Auto 0.3 % (0-2); Hematocrit 35.2 % (37.0-47.0); Hemoglobin 12.3 g/dl (12.0-16.0); Imm Gran Abs Auto 0.03 X10*3/uL (0.00-0.03); Imm Gran Pct Auto 0.2 % (0.0-0.4); Lymphocytes Absolute Auto 1.5 X10*3/uL (1.2-4.9); Lymphocytes Percent Auto 12.5 % (20-40); Mean Corpuscular HGB Conc 34.9 g/dl (31.0-35.0); Mean Corpuscular Hemoglobin 27.6 pg (27.0-33.0); Mean Corpuscular Volume 79.1 fL (80.0-98.0); Mean Platelet Volume 8.9 fL (9.4-12.3); Monocytes Absolute Auto 0.3 X10*3/uL (0.1-1.2); Monocytes Percent Auto 2.8 % (2-11); Neutrophils Absolute Auto 10.1 x10*3/uL (2.0-8.3); Neutrophils Percent Auto 84.2 % (45-73); Platelet Count 398 X10*3/uL (160-400); Red Blood Count 4.45 X10*6/uL (4.20-5.50); White Blood Count 12.1 X10*3/uL (4.8-10.8)
[2024-01-30 20:10] LABS: Appearance Urine Clear; Color Urine Yellow; Glucose Urine UA Negative (Negative); Leukocyte Esterase Urine Negative (Negative); Nitrite Urine Negative (Negative); Specific Gravity - Urine 1.025 (1.005-1.025); UMIC TRIGGER UACC YES; Urine Blood Trace (Negative); Urine Ketones 80 mg/dL (Negative); Urine Protein Trace mg/dL (Neg-Trace)
[2024-01-30 20:12] LABS: UPreg QC Valid YES; Urine Pregnancy NEGATIVE (NEGATIVE)
[2024-01-30 20:15] LABS: Bacteria Urine None Seen (None Seen); Hyaline Casts Urine 0-2 /LPF (0-2); WBC Urine 0-5 /HPF (0-5)
[2024-01-30 20:16] LABS: Alanine Aminotransferase 30 U/L (0-31); Albumin Level 4.3 g/dL (3.5-5.0); Alkaline Phosphatase 68 U/L (39-117); Anion Gap 13 (12-20); Aspartate Amino Transferase 18 U/L (5-31); Bilirubin Total 0.7 mg/dL (0.0-1.0); Blood Urea Nitrogen 8 mg/dL (9-16); Calcium 9.4 mg/dL (8.4-10.2); Carbon Dioxide 24 mmol/L (22-29); Chloride 106 mmol/L (96-108); Estimated Glomerular Filt Rate > 60; Glucose Random 116 mg/dL (60-115); Lipase 200 U/L (8-78); Magnesium 1.9 mg/dL (1.6-2.6); Potassium 3.3 mmol/L (3.3-5.1); Sodium 140 mmol/L (135-145); Total Protein 7.9 g/dL (6.5-8.0)
[2024-01-30 20:39] LABS: Influenza A PCR NEGATIVE (Negative); Influenza B PCR NEGATIVE (Negative); Resp Syncy Virus RNA Qual PCR NEGATIVE (Negative); SARS COV2 PCR INHOUSE NEGATIVE (Negative)
[2024-01-30] MEDS: iohexoL 350 MG/ML 100 ML INFUS..BTL 85 ML IV (21:58)
[2024-01-30] MEDS: 0.9 % Sodium Chloride 1,000 ML 999 ML IV (22:10)
[2024-01-30] MEDS: Famotidine/PF 20 MG/2 ML VIAL IVPUSH (22:10)
[2024-01-30] MEDS: Prochlorperazine Edisylate 10 MG/2 ML VIAL IVPUSH (22:10)
[2024-01-30] MEDS: LORazepam 2 MG/ML VIAL IVPUSH (22:10)
[2024-01-30 23:51] VITALS: BP 129/69; PULSE 99; RESP 16; TEMP 36.9; O2SAT 100
[2024-01-31 02:17] VITALS: BP 126/81; PULSE 98; RESP 17; TEMP 37.2; O2SAT 94
[2024-01-31 02:18] VITALS: BP 126/81; PULSE 98; RESP 17; TEMP 37.2; O2SAT 94
== END 2024-01-31 02:20 | disposition home or self-care (01) ==
PROVIDERS: Nurse Practitioner Family; Emergency Provider Internal Medicine
DX: R11.15 Cyclical vomiting syndrome unrelated to migraine (principal); R74.8 Abnormal levels of other serum enzymes; F12.90 Cannabis use, unspecified, uncomplicated; J45.909 Unspecified asthma, uncomplicated; Z03.818 Encounter for observation for suspected exposure to other biological agents ruled out
CPT/HCPCS: 0241U; 36415; 74177; 80053; 81001; 81025; 83690; 83735; 85025; 96361; 96374; 96375; 99284; J0737; J2060; Q9967

== ENCOUNTER 2024-02-03 14:33 | Emergency (ER) | payer OTHER, SELFPAY ==
[2024-02-03 15:25] VITALS: BP 140/78; PULSE 72; RESP 16; TEMP 37.1; BMI 39.9
--- NOTE | 2024-02-03 15:30 | ED_ITS ---
HPI - General Adult General Chief complaint: Nausea/Vomiting/Diarrhea Stated complaint: vomiting Related Data Previous Rx's ?Medication ?Instructions ?Recorded aluminum-mag hydroxide-simethicone 5 ml PO 5XD PRN dyspepsia #30 mL 12/26/22 200 mg-200 mg-20 mg/5 mL oral susp (Maalox Advanced) famotidine 20 mg tablet (Pepcid) 20 mg PO DAILY #14 tabs 12/26/22 ondansetron 4 mg disintegrating 4 mg PO Q8H PRN nausea and 12/26/22 tablet vomiting #10 tabs dicyclomine 20 mg tablet 20 mg PO QID PRN abdominal pain 01/02/23 #14 tabs ondansetron 4 mg disintegrating 4 mg PO Q8H PRN nausea and 01/02/23 tablet vomiting #10 tabs pantoprazole 40 mg tablet,delayed 40 mg PO DAILY #14 tabs 01/02/23 release hyoscyamine sulfate 0.125 mg tablet 0.125 mg PO QID #20 tabs 03/21/23 omeprazole 20 mg capsule,delayed 20 mg PO DAILY #30 caps 03/21/23 release ondansetron 4 mg disintegrating 4 mg PO Q8H PRN nausea and 06/19/23 tablet vomiting #20 tabs metoclopramide HCl 5 mg tablet 5 mg PO TID PRN nausea and 10/14/23 (Reglan) vomiting #10 tabs ondansetron 4 mg disintegrating 4 mg PO Q6H PRN nausea and 10/14/23 tablet vomiting #14 tabs lorazepam 1 mg tablet (Ativan) 1 mg PO BID PRN anxiety #14 tabs 01/29/24 ondansetron 4 mg disintegrating 4 mg PO Q6-8H PRN nausea and 01/29/24 tablet vomiting #7 tabs Allergies Allergy/AdvReac Type Severity Reaction Status Date / Time No Known Allergies Allergy Verified 02/03/24 15:28 [facility] Past Medical History Medical History Cyclical vomiting Social History Social History Alcohol intake: never Substance Use Type: Marijuana Advance Directives: No Advance Directives Information Provided: No Do you have a plan to hurt others: No Plan Physical Exam ED Vital Signs: Vital Signs - 24 hr 02/03/24 15:25 Temperature 98.7 F Pulse Rate 72 Respiratory Rate 16 Blood Pressure 140/78 H BMI result Body Mass Index 39.9 Course Course Course Narrative: This is a rapid medical exam performed by Chika Price NP: Additional HPI, ROS, PE not included below will be deferred to primary provider. Patient is a 28-year-old female with history of cyclical vomiting/CHS presenting to the ED with nausea and vomiting. Seen in this ED 01/28 and 01/29 for same. Plan: labs, viral swabs, UA Medical Decision Making Lab Data 02/03/24 17:47 02/03/24 17:47 Labs: Lab Results 02/03/24 02/03/24 Range/Units 17:43 17:47 WBC 9.9 (4.8-10.8) X10*3/uL RBC 4.39 (4.20-5.50) X10*6/uL Hgb 12.1 (12.0-16.0) g/dl Hct 35.1 L (37.0-47.0) % MCV 80.0 (80.0-98.0) fL MCH 27.6 (27.0-33.0) pg MCHC 34.5 (31.0-35.0) g/dl RDW 12.8 (11.0-16.0) % Plt Count 353 (160-400) X10*3/uL MPV 9.0 L (9.4-12.3) fL Immature Gran % (Auto) 0.4 (0.0-0.4) % Neut % (Auto) 79.6 H (45-73) % Lymph % (Auto) 16.6 L (20-40) % [place] % (Auto) 3.1 (2-11) % Eos % (Auto) 0.0 (0-4) % Baso % (Auto) 0.3 (0-2) % Lymph # (Auto) 1.7 (1.2-4.9) X10*3/uL [place] # (Auto) 0.3 (0.1-1.2) X10*3/uL Eos # (Auto) 0.0 (0.0-0.4) X10*3/uL Baso # (Auto) 0.0 (0.0-0.2) X10*3/uL Abs Immat Gran (auto) 0.04 H (0.00-0.03) X10*3/uL Absolute Neuts (auto) 7.9 (2.0-8.3) x10*3/uL Absolute Nucleated RBC 0.000 (0.0-0.012) X10*3/uL Nucleated RBC % (auto) 0.0 (0.0-0.2) /100WBC Sodium 140 (135-145) mmol/L Potassium 3.3 (3.3-5.1) mmol/L Chloride 105 (96-108) mmol/L Carbon Dioxide 27 (22-29) mmol/L Anion Gap 11 L (12-20) BUN 6 L (9-16) mg/dL Creatinine 0.62 (0.5-1.4) mg/dL Estim Creat Clear Calc 165.8 Estimated GFR > 60 Random Glucose 105 (60-115) mg/dL Calcium 9.5 (8.4-10.2) mg/dL Magnesium 2.0 (1.6-2.6) mg/dL Total Bilirubin 0.6 (0.0-1.0) mg/dL AST 16 (5-31) U/L ALT 27 (0-31) U/L Alkaline Phosphatase 63 (39-117) U/L Total Protein 7.8 (6.5-8.0) g/dL Albumin 4.3 (3.5-5.0) g/dL Beta HCG, Quant < 2 mIU/mL Ethyl Alcohol < 10 mg/dL Influenza Type A (PCR) NEGATIVE (Negative) Influenza Type B (PCR) NEGATIVE (Negative) RSV RNA Qual (PCR) NEGATIVE (Negative) SARS-CoV-2 RNA (RT-PCR) NEGATIVE (Negative) Discharge Plan Discharge Clinical Impression: Nausea & vomiting Patient Disposition: Left W/O Completing Treatment Prescriptions: No Action ondansetron 4 mg tablet,disintegrating 4 mg PO Q8H PRN (Reason: nausea and vomiting) Qty: 10 0RF pantoprazole 40 mg tablet,delayed release (DR/EC) 40 mg PO DAILY Qty: 14 0RF dicyclomine 20 mg tablet 20 mg PO QID PRN (Reason: abdominal pain) Qty: 14 0RF omeprazole 20 mg capsule,delayed release(DR/EC) 20 mg PO DAILY Qty: 30 0RF hyoscyamine sulfate 0.125 mg tablet 0.125 mg PO QID Qty: 20 0RF ondansetron 4 mg tablet,disintegrating 4 mg PO Q8H PRN (Reason: nausea and vomiting) Qty: 20 0RF lorazepam [Ativan] 1 mg tablet 1 mg PO BID PRN (Reason: anxiety) Qty: 14 0RF ondansetron 4 mg tablet,disintegrating 4 mg PO Q6-8H PRN (Reason: nausea and vomiting) Qty: 7 0RF alum-mag hydroxide-simeth [Maalox Advanced] 200-200-20 mg/5 mL suspension 5 ml PO 5XD PRN (Reason: dyspepsia) Qty: 30 0RF Rx Instructions: administer between meals and at bedtime ondansetron 4 mg tablet,disintegrating 4 mg PO Q8H PRN (Reason: nausea and vomiting) Qty: 10 0RF famotidine [Pepcid] 20 mg tablet 20 mg PO DAILY Qty: 14 0RF ondansetron 4 mg tablet,disintegrating 4 mg PO Q6H PRN (Reason: nausea and vomiting) Qty: 14 0RF metoclopramide HCl [Reglan] 5 mg tablet 5 mg PO TID PRN (Reason: nausea and vomiting) Qty: 10 0RF Rx Instructions: only use if Zofran does not work Discharge Date/Time: 02/03/24 19:22
[2024-02-03 17:51] LABS: MANUAL DIFF FLAG NO
[2024-02-03 17:58] LABS: Basophils Percent Auto 0.3 % (0-2); Hematocrit 35.1 % (37.0-47.0); Hemoglobin 12.1 g/dl (12.0-16.0); Imm Gran Abs Auto 0.04 X10*3/uL (0.00-0.03); Imm Gran Pct Auto 0.4 % (0.0-0.4); Lymphocytes Absolute Auto 1.7 X10*3/uL (1.2-4.9); Lymphocytes Percent Auto 16.6 % (20-40); Mean Corpuscular HGB Conc 34.5 g/dl (31.0-35.0); Mean Corpuscular Hemoglobin 27.6 pg (27.0-33.0); Monocytes Absolute Auto 0.3 X10*3/uL (0.1-1.2); Monocytes Percent Auto 3.1 % (2-11); Neutrophils Absolute Auto 7.9 x10*3/uL (2.0-8.3); Neutrophils Percent Auto 79.6 % (45-73); Platelet Count 353 X10*3/uL (160-400); Red Blood Count 4.39 X10*6/uL (4.20-5.50); Red Cell Distribution Width 12.8 % (11.0-16.0); White Blood Count 9.9 X10*3/uL (4.8-10.8)
[2024-02-03 18:07] LABS: Alanine Aminotransferase 27 U/L (0-31); Albumin Level 4.3 g/dL (3.5-5.0); Alkaline Phosphatase 63 U/L (39-117); Anion Gap 11 (12-20); Aspartate Amino Transferase 16 U/L (5-31); Bilirubin Total 0.6 mg/dL (0.0-1.0); Blood Urea Nitrogen 6 mg/dL (9-16); Calcium 9.5 mg/dL (8.4-10.2); Carbon Dioxide 27 mmol/L (22-29); Chloride 105 mmol/L (96-108); Creatinine Clr Calc Pharmacy 165.8; Estimated Glomerular Filt Rate > 60; Glucose Random 105 mg/dL (60-115); Potassium 3.3 mmol/L (3.3-5.1); Sodium 140 mmol/L (135-145); Total Protein 7.8 g/dL (6.5-8.0)
[2024-02-03 18:12] LABS: Ethanol < 10 mg/dL
[2024-02-03 18:18] LABS: HCG Quantitative < 2 mIU/mL
[2024-02-03 18:48] LABS: Influenza A PCR NEGATIVE (Negative); Influenza B PCR NEGATIVE (Negative); Resp Syncy Virus RNA Qual PCR NEGATIVE (Negative); SARS COV2 PCR INHOUSE NEGATIVE (Negative)
== END 2024-02-03 19:22 | disposition left against medical advice (07) ==
LOC: HO.ED 19:05
PROVIDERS: Registered Nurse Emergency; Emergency Provider Emergency Medicine
DX: R11.2 Nausea with vomiting, unspecified (principal); Z03.818 Encounter for observation for suspected exposure to other biological agents ruled out; Z79.899 Other long term (current) drug therapy
CPT/HCPCS: 0241U; 36415; 80053; 80307; 83735; 84702; 85025; 99281; 99283

== ENCOUNTER 2024-02-09 09:31 | Emergency (ER) | payer OTHER, SELFPAY ==
[2024-02-09 10:12] VITALS: BP 143/94; PULSE 84; RESP 22; TEMP 36.8; O2SAT 100; BMI 39.8
[2024-02-09 11:09] LABS: MANUAL DIFF FLAG NO
[2024-02-09 11:11] LABS: Basophils Percent Auto 0.4 % (0-2); Eosinophils Percent Auto 0.1 % (0-4); Hematocrit 40.1 % (37.0-47.0); Hemoglobin 14.1 g/dl (12.0-16.0); Imm Gran Abs Auto 0.03 X10*3/uL (0.00-0.03); Imm Gran Pct Auto 0.3 % (0.0-0.4); Lymphocytes Absolute Auto 1.5 X10*3/uL (1.2-4.9); Lymphocytes Percent Auto 15.4 % (20-40); Mean Corpuscular HGB Conc 35.2 g/dl (31.0-35.0); Mean Corpuscular Hemoglobin 27.8 pg (27.0-33.0); Mean Corpuscular Volume 79.1 fL (80.0-98.0); Mean Platelet Volume 9.2 fL (9.4-12.3); Monocytes Absolute Auto 0.6 X10*3/uL (0.1-1.2); Monocytes Percent Auto 6.1 % (2-11); Neutrophils Absolute Auto 7.7 x10*3/uL (2.0-8.3); Neutrophils Percent Auto 77.7 % (45-73); Platelet Count 357 X10*3/uL (160-400); Red Blood Count 5.07 X10*6/uL (4.20-5.50); Red Cell Distribution Width 12.7 % (11.0-16.0)
[2024-02-09 11:12] LABS: UPreg QC Valid YES; Urine Pregnancy NEGATIVE (NEGATIVE)
[2024-02-09 11:21] LABS: Appearance Urine Turbid; Color Urine Dark Yellow; Glucose Urine UA Negative (Negative); Leukocyte Esterase Urine Trace (Negative); Nitrite Urine Positive (Negative); PH 7.5 (5.0-9.0); Specific Gravity - Urine >= 1.030 (1.005-1.025); UMIC TRIGGER UACC YES; Urine Blood Negative (Negative); Urine Ketones 80 mg/dL (Negative); Urine Protein 30 (1+) mg/dL (Neg-Trace)
[2024-02-09 11:32] LABS: Bacteria Urine 3+ (None Seen); RBC Urine 0-2 /HPF (0-2); UACC Culture Trigger YES; WBC Urine 0-5 /HPF (0-5)
[2024-02-09 11:43] LABS: Alanine Aminotransferase 77 U/L (0-31); Albumin Level 4.6 g/dL (3.5-5.0); Alkaline Phosphatase 69 U/L (39-117); Anion Gap 12 (12-20); Aspartate Amino Transferase 39 U/L (5-31); Bilirubin Total 1.4 mg/dL (0.0-1.0); Blood Urea Nitrogen 7 mg/dL (9-16); Calcium 9.6 mg/dL (8.4-10.2); Carbon Dioxide 34 mmol/L (22-29); Chloride 94 mmol/L (96-108); Creatinine Clr Calc Pharmacy 160.3; Estimated Glomerular Filt Rate > 60; Glucose Random 106 mg/dL (60-115); Lipase 93 U/L (8-78); Potassium 2.9 mmol/L (3.3-5.1); Sodium 137 mmol/L (135-145); Total Protein 8.2 g/dL (6.5-8.0)
--- NOTE | 2024-02-09 16:02 | ECG_ITS ---
Test Reason : HYPO k+ Blood Pressure : / mmHG Vent. Rate : 072 BPM Atrial Rate : 072 BPM P-R Int : 138 ms QRS Dur : 092 ms QT Int : 422 ms P-R-T Axes : 047 045 020 degrees QTc Int : 462 ms Normal sinus rhythm with sinus arrhythmia Normal ECG When compared with ECG of 19-JUN-2023 17:33, No significant change was found Referred By: Lakshmi Christensen Electronically Signed By:KATIE CALIXTO
[2024-02-09 16:05] VITALS: BP 120/70; PULSE 77; RESP 16; TEMP 36.9; O2SAT 96
[2024-02-09] MEDS: Potassium Chloride ER 20 MEQ TAB.ER.PRT 60 MEQ PO (16:39)
[2024-02-09] MEDS: 0.9 % Sodium Chloride 1,000 ML 999 ML IV ×2 (16:44→19:56)
[2024-02-09 16:46] LABS: Magnesium 2.3 mg/dL (1.6-2.6)
[2024-02-09 16:54] LABS: Amphetamine Screen Urine Not Detected (Not Detect); Barbiturates, Urine Not Detected (Not Detect); Benzodiazepines Screen Urine Not Detected (Not Detect); Buprenorphine Scr Not Detected (Not Detect); Cannabinoid Screen Urine POSITIVE (Not Detect); Cocaine Screen Urine Not Detected (Not Detect); Fentanyl, urine Not Detected (Not Detect); Methadone Screen, Urine Not Detected (Not Detect); Opiate Screen Urine Not Detected (Not Detect); Oxycodone Screen Urine Not Detected (Not Detect); Phencyclidine Screen Urine Not Detected (Not Detect)
[2024-02-09] MEDS: Magnesium Hydrox/Alum Hydrox 30 ML ORAL.SUSP PO (17:33)
[2024-02-09] MEDS: Ketorolac Tromethamine 15 MG/ML VIAL IVPUSH (17:33)
[2024-02-09] MEDS: diphenhydrAMINE HCL 50 MG/ML VIAL IVPUSH (17:33)
[2024-02-09] MEDS: Famotidine/PF 20 MG/2 ML VIAL IVPUSH (17:33)
[2024-02-09] MEDS: Metoclopramide HCl 10 MG/2 ML VIAL IVPUSH (17:33)
--- NOTE | 2024-02-09 17:59 | ED_ITS ---
HPI - Nausea/Vomiting/Diarrhea General Chief complaint: Nausea/Vomiting/Diarrhea Stated complaint: Vomiting, body aches Time Seen by Provider: 02/09/24 16:00 Source: patient, RN notes reviewed and old records reviewed Mode of arrival: ambulatory History of Present Illness ED Provider: Lakshmi Christensen PA-C HPI Narrative: 28-year-old female with a past medical history of cyclical vomiting/marijuana induced vomiting, asthma, presenting to the ED complaining of diffuse body pain/myalgias, nausea, vomiting, and inability to tolerate p.o. x 3 weeks. Admits has been seen and treated in our ED for similar symptoms, had follow-up with GI however missed appointment. Denies marijuana use in the past few weeks. Denies other illicit substances or EtOH. Denies fever, chills, diarrhea, dysuria/hematuria, travel, suspicious food intake. Head CT abdomen/pelvis on 01/29 which was unremarkable. Related Data Previous Rx's ?Medication ?Instructions ?Recorded aluminum-mag hydroxide-simethicone 5 ml PO 5XD PRN dyspepsia #30 mL 12/26/22 200 mg-200 mg-20 mg/5 mL oral susp (Maalox Advanced) famotidine 20 mg tablet (Pepcid) 20 mg PO DAILY #14 tabs 12/26/22 ondansetron 4 mg disintegrating 4 mg PO Q8H PRN nausea and 12/26/22 tablet vomiting #10 tabs dicyclomine 20 mg tablet 20 mg PO QID PRN abdominal pain 01/02/23 #14 tabs ondansetron 4 mg disintegrating 4 mg PO Q8H PRN nausea and 01/02/23 tablet vomiting #10 tabs pantoprazole 40 mg tablet,delayed 40 mg PO DAILY #14 tabs 01/02/23 release hyoscyamine sulfate 0.125 mg tablet 0.125 mg PO QID #20 tabs 03/21/23 omeprazole 20 mg capsule,delayed 20 mg PO DAILY #30 caps 03/21/23 release ondansetron 4 mg disintegrating 4 mg PO Q8H PRN nausea and 06/19/23 tablet vomiting #20 tabs metoclopramide HCl 5 mg tablet 5 mg PO TID PRN nausea and 10/14/23 (Reglan) vomiting #10 tabs ondansetron 4 mg disintegrating 4 mg PO Q6H PRN nausea and 10/14/23 tablet vomiting #14 tabs lorazepam 1 mg tablet (Ativan) 1 mg PO BID PRN anxiety #14 tabs 01/29/24 ondansetron 4 mg disintegrating 4 mg PO Q6-8H PRN nausea and 01/29/24 tablet vomiting #7 tabs Allergies Allergy/AdvReac Type Severity Reaction Status Date / Time No Known Allergies Allergy Verified 02/09/24 10:13 Review of Systems 2 Review of Systems: Yes all other systems are reviewed and are negative Constitutional: Constitutional: Reports as per [facility] Past Medical History Attestation statement: The following information was validated with the patient. Source: old records reviewed Medical History Cyclical vomiting Social History Social History Alcohol intake: never Substance Use Type: Marijuana Advance Directives: No Advance Directives Information Provided: No Physical Exam 2 Vital Signs: Vital Signs: Last Vital Signs Temp 98.5 F 02/09/24 22:27 Pulse 76 02/09/24 22:27 Resp 16 02/09/24 22:27 BP 125/77 02/09/24 22:27 Pulse Ox 98 02/09/24 22:27 O2 Del Method Room Air 02/09/24 22:27 BMI result Body Mass Index 39.8 Const: General: cooperative, healthy appearing and no acute distress O rientation/consciousness: patient oriented x3 Limitations: no limitations HEENT: Head: Yes normal to inspection and Yes atraumatic Ears: hearing grossly normal bilaterally General nose exam: Normal external nose present Face and sinus: Yes normal facial exam Eyes: General: appearance normal, both eyes and all related structures EOM: EOMs intact bilaterally Neck: Neck: Yes normal visual inspection and Yes no meningeal signs Resp: Effort & Inspection: normal respiratory effort and no respiratory distress Auscultation: clear to auscultation bilaterally Cardio: Rate: regular rate Heart sounds: S1 normal heart sound present and S2 normal heart sound present GI: Inspection: Yes normal to inspection Palpation (GI): Soft to palpation, nontender, no guarding and not rigid : General: Yes no CVA tenderness Back/Spine/Pelvis: Back: no CVA tenderness Skin: Rashes: no rashes Wounds: no wounds Neuro: General: patient oriented x3, tone normal and no meningeal signs C ranial nerves: Yes CN's II-XII intact bilaterally Gait exam (Neuro): Normal gait present Extrem: General: Yes normal to inspection Course Course Course Narrative: -no leukocytosis. Potassium low 2.9 > p.o. repletion ordered -magnesium WNL. Total bilirubin, AST/ALT mildly elevated. Lipase improved from prior, mildly elevated to 93 -UA contaminated however with positive nitrites trace leuk esterase. Patient asymptomatic will hold on antibiotic initiation until culture results -tox screen positive for THC > 1809--patient tolerating p.o. in the ED without abdominal pain, nausea or vomiting. 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 -1900--ED care transferred to [facility] pending repeat BMP Reevaluation(s) Reevaluation #1: After oral potassium supplementation, repeat serum potassium of 2.8, received 20 mEq use potassium chloride IV with increased to 3.4. Tolerating oral intake. At this time feel that she is stable for discharge home and outpatient follow-up accordingly. Reviewed worrisome signs and symptoms that would warrant re- evaluation in the emergency department. Time: 22:41 Medications Administered Discontinued Medications Generic Name Dose Route Start Last Admin Trade Name Miguelq PRN Reason Stop Dose Admin Al Hydroxide/Mg Hydroxide 30 ml 02/09/24 17:18 02/09/24 17:33 Magnesium Hydrox/Alum Hydrox 30 Ml Oral.Susp PO 02/09/24 17:19 30 ml ONCE ONE Administration Diphenhydramine HCl 50 mg 02/09/24 17:18 02/09/24 17:33 Diphenhydramine Hcl 50 Mg/Ml Vial IVPUSH 02/09/24 17:19 50 mg ONCE ONE Administration Famotidine 20 mg 02/09/24 17:18 02/09/24 17:33 Famotidine/Pf 20 Mg/2 Ml Vial IVPUSH 02/09/24 17:19 20 mg ONCE ONE Administration Sodium Chloride 1,000 mls @ 999 mls/hr 02/09/24 16:30 02/09/24 20:02 Ns IV 02/09/24 17:30 Infused .Q1H1M KEREN Infusion Potassium Chloride 10 meq in 100 mls @ 100 mls/hr 02/09/24 19:45 02/09/24 22:13 Potassium Chloride/H20 IV 02/09/24 21:44 Infused Q1H KEREN Infusion Sodium Chloride 1,000 mls @ 999 mls/hr 02/09/24 19:45 02/09/24 19:56 Ns IV 02/09/24 20:45 999 mls/hr .Q1H1M KEREN Administration Ketorolac Tromethamine 15 mg 02/09/24 17:18 02/09/24 17:33 Ketorolac Tromethamine 15 Mg/Ml Vial IVPUSH 02/09/24 17:19 15 mg ONCE ONE Administration Metoclopramide HCl 10 mg 02/09/24 17:18 02/09/24 17:33 Metoclopramide Hcl 10 Mg/2 Ml Vial IVPUSH 02/09/24 17:19 10 mg ONCE ONE Administration Potassium Chloride 60 meq 02/09/24 16:01 02/09/24 16:39 Potassium Chloride Er 20 Meq Tab.Er.Prt PO 02/09/24 16:02 60 meq ONCE ONE Administration Potassium Chloride 40 meq 02/09/24 18:07 02/09/24 18:14 Potassium Chloride Packet 20 Meq Packet PO 02/09/24 18:08 40 meq ONCE ONE Administration Medical Decision Making Medical Decision Making MDM Narrative: 28-year-old female with a past medical history of cyclical vomiting/marijuana induced vomiting, asthma, presenting to the ED complaining of diffuse body pain/myalgias, nausea, vomiting, and inability to tolerate p.o. x 3 weeks. On exam tearful, anxious, NAD/nontoxic appearing, abdomen soft/nontender, no CVAT. Concern for cyclical vomiting vs gastroenteritis vs food poisoning. Low suspicion for appendicitis, diverticulitis, cholecystitis/lithiasis, acute pancreatitis, ovarian torsion at this time Plan: EKG, labs, UA, tox screen, symptomatic remedies, p.o. challenge Please refer to course for remaining clinical decision making, interpretation of labs/imaging results, and discussions with consultants and/or family members. Differential Diagnosis Differential Diagnoses: The differential diagnosis associated with the presentation includes As above Admission/Observation Consideration of admission/observation: Escalation of care including admission/observation considered Lab Data MDM Lab Attestation statement: I reviewed the patient's lab results. 02/09/24 11:03 02/09/24 21:48 Labs: Lab Results 02/09/24 02/09/24 02/09/24 Range/Units 11:03 18:42 21:48 WBC 10.0 (4.8-10.8) X10*3/uL RBC 5.07 (4.20-5.50) X10*6/uL Hgb 14.1 (12.0-16.0) g/dl Hct 40.1 (37.0-47.0) % MCV 79.1 L (80.0-98.0) fL MCH 27.8 (27.0-33.0) pg MCHC 35.2 H (31.0-35.0) g/dl RDW 12.7 (11.0-16.0) % Plt Count 357 (160-400) X10*3/uL MPV 9.2 L (9.4-12.3) fL Immature Gran % (Auto) 0.3 (0.0-0.4) % Neut % (Auto) 77.7 H (45-73) % Lymph % (Auto) 15.4 L (20-40) % [place] % (Auto) 6.1 (2-11) % Eos % (Auto) 0.1 (0-4) % Baso % (Auto) 0.4 (0-2) % Lymph # (Auto) 1.5 (1.2-4.9) X10*3/uL [place] # (Auto) 0.6 (0.1-1.2) X10*3/uL Eos # (Auto) 0.0 (0.0-0.4) X10*3/uL Baso # (Auto) 0.0 (0.0-0.2) X10*3/uL Abs Immat Gran (auto) 0.03 (0.00-0.03) X10*3/uL Absolute Neuts (auto) 7.7 (2.0-8.3) x10*3/uL Absolute Nucleated RBC 0.000 (0.0-0.012) X10*3/uL Nucleated RBC % (auto) 0.0 (0.0-0.2) /100WBC Sodium 137 137 139 (135-145) mmol/L Potassium 2.9 L* 2.8 L* 3.4 D (3.3-5.1) mmol/L Chloride 94 L 98 102 (96-108) mmol/L Carbon Dioxide 34 H 30 H 30 H (22-29) mmol/L Anion Gap 12 12 10 L (12-20) BUN 7 L 7 L 7 L (9-16) mg/dL Creatinine 0.64 0.61 0.63 (0.5-1.4) mg/dL Estim Creat Clear Calc 160.3 168.1 162.9 Estimated GFR > 60 > 60 > 60 Random Glucose 106 119 H 114 (60-115) mg/dL Calcium 9.6 9.0 D 9.1 (8.4-10.2) mg/dL Magnesium 2.3 (1.6-2.6) mg/dL Total Bilirubin 1.4 H (0.0-1.0) mg/dL AST 39 H (5-31) U/L ALT 77 H (0-31) U/L Alkaline Phosphatase 69 (39-117) U/L Total Protein 8.2 H (6.5-8.0) g/dL Albumin 4.6 (3.5-5.0) g/dL Lipase 93 H (8-78) U/L Urine Color Dark Yellow Urine Appearance Turbid Urine pH 7.5 (5.0-9.0) Ur Specific [place] >= 1.030 H (1.005-1.025) Urine Protein 30 (1+) H (Neg-Trace) mg/dL Urine Glucose (UA) Negative (Negative) mg/dL Urine Ketones 80 (Negative) mg/dL Urine Blood Negative (Negative) Urine Nitrite Positive H (Negative) Ur Leukocyte Esterase Trace H (Negative) Urine RBC 0-2 (0-2) /HPF Urine WBC 0-5 (0-5) /HPF Ur Squamous Epith Cells 11-20 (0-2) /HPF Urine Bacteria 3+ (None Seen) Hyaline Casts 11-20 (0-2) /LPF Urine Test NEGATIVE (NEGATIVE) Urine Opiates Screen Not Detected (Not Detect) Ur Buprenorphine Scrn Not Detected (Not Detect) ng/mL Ur Oxycodone Screen Not Detected (Not Detect) ng/mL Urine Methadone Screen Not Detected (Not Detect) ng/mL Urine Fentanyl Screen Not Detected (Not Detect) Ur Barbiturates Screen Not Detected (Not Detect) Ur Phencyclidine Scrn Not Detected (Not Detect) Ur Amphetamines Screen Not Detected (Not Detect) U Benzodiazepines Scrn Not Detected (Not Detect) Urine Cocaine Screen Not Detected (Not Detect) U Marijuana (THC) Screen POSITIVE H (Not Detect) Independent Interpretation I performed an independent interpretation of an: EKG (My interpretation EKG normal sinus rhythm with sinus arrhythmia rate of 72. OH interval 138. No STEMI.) Radiology Impression Discussion of test interpretation with radiology: I have reviewed the radiologist's reading. External Record Review External record reviewed: Inpatient record, Office record, Outpatient record, Prior outpatient labs, Prior outpatient radiology, Primary care record and Outside ED record Tests considered The following testing was considered but not selected: As above Prescription Management I considered prescription management with: Pain Medication Chronic Conditions Patient?s care impacted by: Other Social Determinants Patient?s care significantly limited by Social Determinants of Health including: Alcoholism and drug addiction in family Discharge Plan Discharge Clinical Impression: Nausea & vomiting Patient Disposition: Home, Self-Care Instructions: Acute Nausea and Vomiting (ED) Additional Instructions: Your potassium was mildly low. We repleted you in the emergency department Make sure you are staying hydrated Please avoid alcohol and drug use including marijuana Please follow-up with her doctor If symptoms persist or worsen, you are unable to eat or drink have persistent nausea/vomiting return to the ED Prescriptions: No Action ondansetron 4 mg tablet,disintegrating 4 mg PO Q8H PRN (Reason: nausea and vomiting) Qty: 10 0RF pantoprazole 40 mg tablet,delayed release (DR/EC) 40 mg PO DAILY Qty: 14 0RF dicyclomine 20 mg tablet 20 mg PO QID PRN (Reason: abdominal pain) Qty: 14 0RF omeprazole 20 mg capsule,delayed release(DR/EC) 20 mg PO DAILY Qty: 30 0RF hyoscyamine sulfate 0.125 mg tablet 0.125 mg PO QID Qty: 20 0RF ondansetron 4 mg tablet,disintegrating 4 mg PO Q8H PRN (Reason: nausea and vomiting) Qty: 20 0RF lorazepam [Ativan] 1 mg tablet 1 mg PO BID PRN (Reason: anxiety) Qty: 14 0RF ondansetron 4 mg tablet,disintegrating 4 mg PO Q6-8H PRN (Reason: nausea and vomiting) Qty: 7 0RF alum-mag hydroxide-simeth [Maalox Advanced] 200-200-20 mg/5 mL suspension 5 ml PO 5XD PRN (Reason: dyspepsia) Qty: 30 0RF Rx Instructions: administer between meals and at bedtime ondansetron 4 mg tablet,disintegrating 4 mg PO Q8H PRN (Reason: nausea and vomiting) Qty: 10 0RF famotidine [Pepcid] 20 mg tablet 20 mg PO DAILY Qty: 14 0RF ondansetron 4 mg tablet,disintegrating 4 mg PO Q6H PRN (Reason: nausea and vomiting) Qty: 14 0RF metoclopramide HCl [Reglan] 5 mg tablet 5 mg PO TID PRN (Reason: nausea and vomiting) Qty: 10 0RF Rx Instructions: only use if Zofran does not work [place] [facility] [place] [facility] [place]Provider Group] Physician,Unknown J [Primary Care Provider] - 3 days Print Language: Greek
[2024-02-09] MEDS: Potassium Chloride Packet 20 MEQ PACKET 40 MEQ PO (18:14)
[2024-02-09 19:28] LABS: Anion Gap 12 (12-20); Blood Urea Nitrogen 7 mg/dL (9-16); Carbon Dioxide 30 mmol/L (22-29); Chloride 98 mmol/L (96-108); Creatinine Clr Calc Pharmacy 168.1; Estimated Glomerular Filt Rate > 60; Glucose Random 119 mg/dL (60-115); Potassium 2.8 mmol/L (3.3-5.1); Sodium 137 mmol/L (135-145)
[2024-02-09] MEDS: Potassium Chloride/H20 10 MEQ/100 ML PIGGYBACK 100 MEQ IV ×2 (19:56→21:01)
[2024-02-09 20:34] VITALS: BP 111/64; PULSE 78; RESP 16; TEMP 36.8; O2SAT 98
[2024-02-09 22:15] LABS: Anion Gap 10 (12-20); Blood Urea Nitrogen 7 mg/dL (9-16); Calcium 9.1 mg/dL (8.4-10.2); Carbon Dioxide 30 mmol/L (22-29); Chloride 102 mmol/L (96-108); Creatinine Clr Calc Pharmacy 162.9; Estimated Glomerular Filt Rate > 60; Glucose Random 114 mg/dL (60-115); Potassium 3.4 mmol/L (3.3-5.1); Sodium 139 mmol/L (135-145)
[2024-02-09 22:27] VITALS: BP 125/77; PULSE 76; RESP 16; TEMP 36.9; O2SAT 98
[2024-02-09 22:49] VITALS: BP 125/77; PULSE 76; RESP 16; TEMP 36.9; O2SAT 98
== END 2024-02-09 22:51 | disposition home or self-care (01) ==
PROVIDERS: Nurse Practitioner Family; Physician Assistant; Emergency Provider Emergency Medicine Emergency Medical Services
DX: R11.2 Nausea with vomiting, unspecified (principal); M79.10 Myalgia, unspecified site; I49.8 Other specified cardiac arrhythmias; Z79.899 Other long term (current) drug therapy; Z51.81 Encounter for therapeutic drug level monitoring
CPT/HCPCS: 36415; 80048; 80053; 80307; 81001; 81025; 83690; 83735; 85025; 87086; 93005; 96361; 96365; 96366; 96375; 99284; 99285; J1200; J1885; J2765; J3480